=== PATIENT | male | born 1940 | race Caucasian/White ===

== ENCOUNTER 2021-01-04 17:14 | Observation (INO) | payer MEDICARE, SELFPAY ==
[2021-01-04] VITALS (7 sets, daily range): BP systolic 123–139; BP diastolic 56–69; PULSE 60–64; RESP 16–21; TEMP 36.6; O2SAT 95–97; BMI 24.3
--- NOTE | ~2021-01-04 | CT_ITS ---
EXAMINATION: CT CHEST WITHOUT CONTRAST CLINICAL INFORMATION: Fall. Left rib pain COMPARISON: None TECHNIQUE: Multidetector volumetric CT imaging of the chest was done. Axial MIP volume rendering provided. Sagittal and coronal reformatted images were obtained. This CT examination was performed using dose optimization techniques as appropriate, variously including the following: *Automated exposure control *Adjustment of mA and/or kV according to patient size (this includes techniques or standardized protocols for targeted exams where dose is matched to indication/reason for exam; i.e. 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 Left anterior pectoral pacer/AICD with leads in the right atrium and right ventricular apex. Severe degenerative arthrosis of the shoulders. LUNGS: There is respiratory motion are tract limiting the study. Mild bibasilar atelectasis. No dense focal consolidation or mass. Paraseptal emphysema. Biapical pleural parenchymal scarring. Tiny calcified granulomata are present. There are some endobronchial nodules consistent with mucus or small airways disease. No focal consolidation or groundglass opacity. MEDIASTINUM: Lack of IV contrast limits evaluation of the mediastinum. There is moderate cardiomegaly. Small pericardial effusion. Coronary artery calcifications are present. PLEURA: There is no pleural effusion. No pleural mass or thickening. AXILLA: No lymphadenopathy. UPPER ABDOMEN: No adrenal mass. Circumferential calcified atherosclerotic changes of the aorta. There is bilateral perinephric fluid and fat stranding, greater on the left. Its unclear if this is related to prior trauma. OSSEOUS STRUCTURES: Severe degenerative arthrosis of the bilateral shoulders. The clavicles are intact. Multilevel degenerative changes of the thoracolumbar spine. Left anterior seventh rib fracture image [id number]. Subtly displaced left anterolateral eighth rib fracture image 512 CT/CT chest wo con IMPRESSION: Left anterior lateral seventh and eighth rib fractures. Left greater than right bilateral perinephric fluid and fat stranding. Its unclear if the fluid adjacent the left kidney represents sequelae of prior trauma. No gross pneumoperitoneum seen. Recommend clinical correlation.
--- NOTE | ~2021-01-04 | CT_ITS ---
EXAMINATION: CT HEAD WITHOUT CONTRAST, CT CERVICAL SPINE WITHOUT CONTRAST CLINICAL INFORMATION: Pain. Fall. COMPARISON: Portions of a previous study 08/08/17 TECHNIQUE: Multidetector CT examination of the head is performed without contrast. Multidetector CT of the cervical spine without contrast. Multiplanar postprocessing This CT examination was performed using dose optimization techniques as appropriate, variously including the following: *Automated exposure control *Adjustment of mA and/or kV according to patient size (this includes techniques or standardized protocols for targeted exams where dose is matched to indication/reason for exam; i.e. extremities or head) *Use of iterative reconstruction technique DLP: 1833 mGy-cm FINDINGS: Head CT: There is no evidence of a recent intracranial hemorrhage or extra-axial collection. The midline structures are nondisplaced. The ventricles, cisterns, and sulci are within normal limits. There is no evidence of an intra-axial mass. There are no suspicious focal areas of abnormal brain attenuation. The mckinney-white interface is within normal limits. There is no evidence of acute territorial infarct. Moderately extensive nonspecific white matter low attenuation with a patchy distribution. This could be related to microangiopathy. The paranasal sinuses and mastoids are within normal limits. No definite fracture or fluid level. Mild thickening in the left maxillary sinus. Cervical CT: No fracture or subluxation. No suspicious focal lesion. There are proliferative changes throughout the cervical spine with anterior and posterior osteophytes. There is extensive facet disease with proliferative changes that cause some foraminal narrowing. There may be some canal narrowing. The canal contents are not well evaluated. There are cardiac leads. There is some pleural and parenchymal abnormality in the visualized lung apex. CT/CT cervical spine wo con IMPRESSION: 1. There is no evidence of a recent intracranial hemorrhage. 2. No acute infarct. 3. No acute fracture or subluxation of the cervical spine Extensive white matter disease possibly microangiopathy. Degenerative changes in the visualized spine.
--- NOTE | ~2021-01-04 | CT_ITS ---
EXAMINATION: CT ABDOMEN AND PELVIS WITHOUT CONTRAST CLINICAL INFORMATION: Fall. Trauma. COMPARISON: None TECHNIQUE: Multidetector volumetric imaging was performed from the superior aspect of the liver through the pubic symphysis. Sagittal and coronal reformatted images were obtained on the technologist's workstation. This CT examination was performed using dose optimization techniques as appropriate, variously including the following: *Automated exposure control *Adjustment of mA and/or kV according to patient size (this includes techniques or standardized protocols for targeted exams where dose is matched to indication/reason for exam; i.e. extremities or head) *Use of iterative reconstruction technique DLP: 1146 mGy-cm FINDINGS: LUNG BASES: The chest is examined earlier same day. There is artifact related to a cardiac lead. Extensive coronary calcification. Nonspecific lung base opacities. Small area of pleural thickening partially included in chili on the left. No pneumothorax demonstrated LIVER, GALLBLADDER, AND BILIARY TREE: There is no definite evidence of hepatic injury on the non-IV enhanced examination. This could be related to previous contrast administration or bile. PANCREAS: No evidence of a pancreatic injury. No localized peripancreatic fluid. SPLEEN: No definite splenic injury. ADRENAL GLANDS: No evidence of adrenal injury. KIDNEYS AND URETERS: There is some low attenuation of the central aspect the left kidney. I favor some parapelvic cysts. There is no ureteral dilation. There is left perinephric fat stranding and some thickening of the retroperitoneal fascial planes on the left. There is no enlargement of the psoas. There is no interval increase when compared to study from earlier this evening. BLADDER: Obscured by hardware artifact. GASTROINTESTINAL TRACT: There are numerous colonic diverticula. There is no evidence of colonic injury. There may be some suture material near the region of the proximal colon. Semisolid material within the distal small bowel suggests some relative stasis. No evidence of a small bowel injury. The stomach contains a moderate amount of ingested material. ABDOMINAL WALL: No significant hernia is appreciated. LYMPH NODES: No enlarged lymph nodes demonstrated. No free fluid demonstrated. VASCULAR: Calcification of the aorta. PELVIC VISCERA: Obscured by artifact OSSEOUS STRUCTURES: Artifact related to bilateral hip replacement. Multiple pelvic surgical clips. Recent diagnosis anterolateral lower left rib fractures. CT/CT abdomen pelvis wo con IMPRESSION: Stranding around the left kidney which could be chronic. This has not increased in the short interval. No other evidence of abdominal or pelvic injury.
--- NOTE | 2021-01-04 17:24 | ECG_ITS ---
Test Reason : FALL Blood Pressure : / mmHG Vent. Rate : 060 BPM Atrial Rate : 060 BPM P-R Int : 216 ms QRS Dur : 190 ms QT Int : 504 ms P-R-T Axes : 094 -37 220 degrees QTc Int : 504 ms Atrial-paced rhythm with prolonged AV conduction Left axis deviation Left bundle branch block Abnormal ECG When compared with ECG of 27-DEC-2002 08:50, Electronic atrial pacemaker has replaced Sinus rhythm Left bundle branch block is now Present Referred By: Ce Jordan Electronically Signed By:ALBERTINA RHODES MD
--- NOTE | 2021-01-04 17:26 | ED_ITS ---
HPI - Fall General Chief Complaint: Fall Stated Complaint: DIZZY,FALL Time Seen by Provider: 01/04/21 17:23 Source: patient and EMS Mode of arrival: EMS Limitations: no limitations History of Present Illness HPI Narrative: 80 yo male with afib and PPM on coumadin here after working outside sitting in a chair then when he went to get up he felt dizzy which is a typical occurrence for him (recent increase in amiodarone and metoprolol) instead of waiting he proceeded to get up and fell over no LOC, c/o L rib pain a nd abrasion to L little finger - the denies this and states that he actually has been only dizzy as of recent, he cannot fully remember the events, his HR has been up to 120s at home, new medication changes, is concerned he actually syncopized MD complaint: fall Onset (ago): minute(s) Fall from: standing Fall witnessed: no Place fall occurred: home Loss of consciousness: none Prolonged down time: no Symptoms prior to fall: lightheadedness Context: other (lost balance after standing up and feeling dizzy) Location of injury: chest Location of injury - extremities: left: hand Severity: mild Quality: dull Associated symptoms (after fall): denies Related Data Allergies Allergy/AdvReac Type Severity Reaction Status Date / Time acetaminophen [From PERCOCET] Allergy Unknown HIVES Verified 01/04/21 18:02 aspirin [From PERCODAN] Allergy Unknown HIVES Verified 01/04/21 18:02 cefotetan [From CEFOTAN] Allergy Unknown HIVES Verified 01/04/21 18:02 oxycodone [From PERCODAN] Allergy Unknown HIVES Verified 01/04/21 18:02 Review of Systems Review of Systems: Constitutional : No Fever, No Chills ENT/Mouth : No Ear Pain, No Hoarseness, No sore throat Eyes: No Eye Pain, No Swelling, No Redness, No Foreign Body Cardiovascular : pos left rib Chest Pain, No SOB Respiratory : No Cough, No Dyspnea Gastrointestinal : No Nausea, No Vomiting, No Diarrhea, No abdominal Pain Genitourinary : No Dysuria, No Hematuria Musculoskeletal : no joint pain, No Myalgias, No Joint Swelling Skin : No Skin lacerations, No rash, pos abrasions Neuro : No Weakness, No Numbness, No Loss of Consciousness, No Dizziness, No Headache Psych : No Anxiety/Panic, No Depression Heme/Lymph: no easy bruising, no Lymphadenopathy Endocrine : No Polyuria, No Polydipsia All other systems reviewed and are negative [facility] Past Medical History Attestation statement: The following information was validated with the patient. Medical History (Updated 01/04/21 @ 20:25 by Ce Jordan DO) Afib Coronary artery disease Pacemaker Surgical History (Updated 01/04/21 @ 17:33 by Ce Jordan DO) Stented coronary artery Social History Social History (Updated 01/04/21 @ 17:33 by Ce Jordan DO) Alcohol intake: never Smoking Status: Never smoker Use of substances other than those prescribed or required for medical reasons: No Advance Directives: No Advance Directives Information Provided: No Physical Exam Vital Signs: Vital Signs: Last Vital Signs Temp 97.8 F 01/04/21 18:33 Pulse 60 01/04/21 19:37 Resp 16 01/04/21 19:37 BP 132/69 01/04/21 19:37 Pulse Ox 96 01/04/21 19:37 Body Mass Index 24.3 Appearance: Alert. Oriented X3. No acute distress. Eyes: Pupils equal, round and reactive to light. ENT: Pharynx normal. Neck: Normal inspection. Neck supple. CVS: Normal heart rate and rhythm. Pulses normal. Chest: ttp left lateral ribs no obvious trauma Respiratory: No respiratory distress. Breath sounds normal. Abdomen: Soft and nontender. Skin: Skin warm and dry. Normal skin color. superficial abrasions to left small finger Extremities: No lower extremity edema. No calf ttp Neuro: Oriented X 3. No motor deficit. No sensory deficit. Course Course Course Narrative: will admit given recent bouts of possible syncope will admit for tele MDM - Fall MDM Narrative Medical decision making narrative: 80 yo male on coumadin hx of AFIB, CAD s/p PPM - at this time c/o dizziness upon standing which isn't a new occurrence for him given age and AC therapy will need labs, CT head/neck/chest for trauma, no CP/SOB no current dizziness, dispo per results and findings, like hx of dizziness upon standing or orthostatic hypotension causing symptoms Lab Data Result diagrams: 01/04/21 18:57 01/04/21 18:57 Labs: Lab Results 01/04/21 01/04/21 01/04/21 Range/Units 18:57 18:57 18:57 WBC 6.2 (4.8-10.8) X10*3/uL RBC 4.23 L (4.60-5.80) X10*6/uL Hgb 13.0 L (14.0-18.0) g/dl Hct 38.9 L (42-52) % MCV 92.0 (80-98) fL MCH 30.7 (27.0-33.0) pg MCHC 33.4 (31.0-36.0) g/dl RDW 13.5 (11.0-16.0) % Plt Count 119 L (160-400) X10*3/uL MPV 11.3 (9.4-12.4) fL Immature Gran % (Auto) 0.3 (0.0-0.4) % Neut % (Auto) 77.3 H (45-73) % Lymph % (Auto) 12.9 L (20-40) % [place] % (Auto) 8.2 (2-11) % Eos % (Auto) 0.8 (0-4) % Baso % (Auto) 0.5 (0-2) % Lymph # (Auto) 0.8 L (1.2-4.9) X10*3/uL [place] # (Auto) 0.5 (0.1-1.2) X10*3/uL Eos # (Auto) 0.1 (0.0-0.4) X10*3/uL Baso # (Auto) 0.0 (0.0-0.2) X10*3/uL Abs Immat Gran (auto) 0.02 (0.00-0.03) X10*3/uL Absolute Neuts (auto) 4.8 (2.0-8.3) X10*3/uL Absolute Nucleated RBC 0.000 (0.0-0.012) X10*3/uL Nucleated RBC % (auto) 0.0 (0.0-0.2) /100WBC PT 13.2 H (10.8-13.0) SEC INR 1.1 (0.9-1.1) APTT 31.2 (24.1-38.0) SEC Sodium 141 (135-145) mmol/L Potassium 4.6 (3.3-5.1) mmol/L Chloride 109 H (96-108) mmol/L Carbon Dioxide 24 (22-29) mmol/L Anion Gap 13 (12-20) BUN 23 H (9-16) mg/dL Creatinine 1.49 H (0.5-1.4) mg/dL Estim Creat Clear Calc 39.4 Estimated GFR 45 Random Glucose 96 (60-115) mg/dL Calcium 9.0 (8.4-10.2) mg/dL Magnesium (1.6-2.6) mg/dL Total Bilirubin (0.0-1.0) mg/dL Direct Bilirubin (0.0-0.5) mg/dL AST (5-37) U/L ALT (0-40) U/L Alkaline Phosphatase (39-117) U/L Troponin I High Sens (<3.5-35.0) ng/L Total Protein (6.5-8.0) g/dL Albumin (3.5-5.0) g/dL Lipase (8-78) U/L 01/04/21 01/04/21 Range/Units 18:57 18:57 WBC (4.8-10.8) X10*3/uL RBC (4.60-5.80) X10*6/uL Hgb (14.0-18.0) g/dl Hct (42-52) % MCV (80-98) fL MCH (27.0-33.0) pg MCHC (31.0-36.0) g/dl RDW (11.0-16.0) % Plt Count (160-400) X10*3/uL MPV (9.4-12.4) fL Immature Gran % (Auto) (0.0-0.4) % Neut % (Auto) (45-73) % Lymph % (Auto) (20-40) % [place] % (Auto) (2-11) % Eos % (Auto) (0-4) % Baso % (Auto) (0-2) % Lymph # (Auto) (1.2-4.9) X10*3/uL [place] # (Auto) (0.1-1.2) X10*3/uL Eos # (Auto) (0.0-0.4) X10*3/uL Baso # (Auto) (0.0-0.2) X10*3/uL Abs Immat Gran (auto) (0.00-0.03) X10*3/uL Absolute Neuts (auto) (2.0-8.3) X10*3/uL Absolute Nucleated RBC (0.0-0.012) X10*3/uL Nucleated RBC % (auto) (0.0-0.2) /100WBC PT (10.8-13.0) SEC INR (0.9-1.1) APTT (24.1-38.0) SEC Sodium (135-145) mmol/L Potassium (3.3-5.1) mmol/L Chloride (96-108) mmol/L Carbon Dioxide (22-29) mmol/L Anion Gap (12-20) BUN (9-16) mg/dL Creatinine (0.5-1.4) mg/dL Estim Creat Clear Calc Estimated GFR Random Glucose (60-115) mg/dL Calcium (8.4-10.2) mg/dL Magnesium 2.0 (1.6-2.6) mg/dL Total Bilirubin 1.0 (0.0-1.0) mg/dL Direct Bilirubin 0.4 (0.0-0.5) mg/dL AST 25 (5-37) U/L ALT 20 (0-40) U/L Alkaline Phosphatase 65 (39-117) U/L Troponin I High Sens 8.0 (<3.5-35.0) ng/L Total Protein 6.0 L (6.5-8.0) g/dL Albumin 3.9 (3.5-5.0) g/dL Lipase 68 (8-78) U/L ECG Data Attestation: I personally reviewed and interpreted this ECG as follows: ECG interpretation date: 01/04/21 ECG interpretation time: 18:49 Interpretation: Rate: 60 Rhythm: a paced continuous [place]: left wide QRS ST T wave : nonspecific , no PARVIN qTC: prolonged prior studies: no acute ischemia The study has been interpreted contemporaneously by me. . Discharge Plan Discharge Clinical Impression: Fracture of rib, Abrasion, Near syncope Patient Disposition: Admitted As Inpatient
[2021-01-04 19:03] LABS: Basophils Percent Auto 0.5 % (0-2); Eosinophils Absolute Auto 0.1 X10*3/uL (0.0-0.4); Eosinophils Percent Auto 0.8 % (0-4); Hematocrit 38.9 % (42-52); Imm Gran Abs Auto 0.02 X10*3/uL (0.00-0.03); Imm Gran Pct Auto 0.3 % (0.0-0.4); Mean Corpuscular HGB Conc 33.4 g/dl (31.0-36.0); PLT CLUMP 1; SCAN SMEAR FLAG 1
[2021-01-04 19:05] LABS: Lymphocytes Absolute Auto 0.8 X10*3/uL (1.2-4.9); Lymphocytes Percent Auto 12.9 % (20-40); Mean Corpuscular Hemoglobin 30.7 pg (27.0-33.0); Mean Platelet Volume 11.3 fL (9.4-12.4); Monocytes Absolute Auto 0.5 X10*3/uL (0.1-1.2); Monocytes Percent Auto 8.2 % (2-11); Neutrophils Absolute Auto 4.8 X10*3/uL (2.0-8.3); Neutrophils Percent Auto 77.3 % (45-73); Platelet Count 119 X10*3/uL (160-400); Red Blood Count 4.23 X10*6/uL (4.60-5.80); Red Cell Distribution Width 13.5 % (11.0-16.0); White Blood Count 6.2 X10*3/uL (4.8-10.8)
[2021-01-04 19:10] LABS: INTERNATIONAL NORM RATIO 1.1 (0.9-1.1); Prothrombin Time 13.2 SEC (10.8-13.0)
[2021-01-04 19:13] LABS: Partial Thromboplastin Time 31.2 SEC (24.1-38.0)
[2021-01-04 19:20] LABS: MANUAL DIFF FLAG NO
[2021-01-04 19:23] LABS: Anion Gap 13 (12-20); Blood Urea Nitrogen 23 mg/dL (9-16); Carbon Dioxide 24 mmol/L (22-29); Chloride 109 mmol/L (96-108); Creatinine Clr Calc Pharmacy 39.4; Estimated Glomerular Filt Rate 45; Glucose Random 96 mg/dL (60-115); Potassium 4.6 mmol/L (3.3-5.1); Sodium 141 mmol/L (135-145)
[2021-01-04 19:26] LABS: Alanine Aminotransferase 20 U/L (0-40); Albumin Level 3.9 g/dL (3.5-5.0); Alkaline Phosphatase 65 U/L (39-117); Aspartate Amino Transferase 25 U/L (5-37); Bilirubin Direct 0.4 mg/dL (0.0-0.5); Lipase 68 U/L (8-78)
[2021-01-04 21:43] LABS: COVID-19 Test Negative (Negative)
[2021-01-04 21:55] LABS: Troponin-I High Sensitivity 9.3 ng/L (<3.5-35.0)
--- NOTE | 2021-01-04 22:25 | P.HPHOSP_ITS ---
History of Present Illness Date of Service: 01/04/21 Chief Complaint: Fall, near syncope This is an 80-year-old male with past medical history of AFib, CAD status post stent replacement, pacemaker, ?SVT who presents to the hospital after experiencing a near syncopal episode. Patient currently is alert and oriented x3. Patient reports that he was working in the [employer] all day, he was working on his porch, he was leaning over, when he got up, he also sudden felt very dizzy and almost lost consciousness. He fell, fracturing some ribs on the left chest as well as abrasions of his fingers. He himself denies loss of consciousness although his reports that he was out of it . Patient and both report that he has been started on amnio recently as well as his metoprolol has been increased from 50-75. According to the patient's his ET has been trying to change his ICD leads and therefore patient was started on amnio. Patient himself reports that ever starting they amnio an increase in metoprolol he has been feeling significant weakness. He also reports that his blood pressure has been low at home with readings sometimes in the 80s/50s, 100s/50s. Although he reports that today his blood pressure was 130s over 50s. He currently denies any chest pain except at the site of fractured ribs, no shortness of breath, no headache or change in vision, no abdominal pain nausea or diarrhea, no urinary symptoms and no lower extremity edema. On arrival to the ED patient hemodynamically stable with no significant abnormal vitals Labs are significant for WBC count of 6.2, hemoglobin of 13.0, PT of 13.2, BUN of 23 creatinine of 1.49 with no baseline on record, troponin of 8 point know that increased to 9.3, labs otherwise unremarkable EKG shows atrial paced rhythm with prolonged AV, left axis deviation, left bundle-branch block. Abdominal pelvic CT shows stranding around the left kidney which could be chronic, Chest CT shows left anterior lateral 7th and 8th rib fracture, left greater than right bilateral perinephric fluid and fat stranding with unclear if the fluid adjacent to the left kidney represent sequelae of prior trauma, Head CT shows no evidence of recent intracranial hemorrhage, no acute infarct, no acute fracture or subluxation of the cervical spine Past medical history as below on comfort with patient Review of Systems Review of Systems: Yes all other systems are reviewed and are negative [facility] Medical History (Updated 01/05/21 @ 06:05 by Mian Lo MD) Afib CHF (congestive heart failure) Coronary artery disease Hypothyroidism Pacemaker SVT (supraventricular tachycardia) Surgical History Stented coronary artery Social History Alcohol intake: never Smoking Status: Never smoker Use of substances other than those prescribed or required for medical reasons: No Advance Directives: No Advance Directives Information Provided: No Meds Allergies Allergy/AdvReac Type Severity Reaction Status Date / Time acetaminophen [From PERCOCET] Allergy Unknown HIVES Verified 01/04/21 18:02 aspirin [From PERCODAN] Allergy Unknown HIVES Verified 01/04/21 18:02 cefotetan [From CEFOTAN] Allergy Unknown HIVES Verified 01/04/21 18:02 oxycodone [From PERCODAN] Allergy Unknown HIVES Verified 01/04/21 18:02 Active Medications: Current Medications Generic Name Dose Route Start Last Admin Trade Name Freq PRN Reason Stop Dose Admin Pharmacy Consult 1 each 01/04/21 20:52 Consult Rx Perform Med Rec MISCELLANE ONCE PRN Consult order Home Medications Medication Instructions Recorded Confirmed Last Taken Type amiodarone 200 mg PO BID 01/04/21 01/04/21 Unknown History atorvastatin 20 mg PO QPM 01/04/21 01/04/21 Unknown History clopidogrel 1 tab PO DAILY 01/04/21 01/04/21 Unknown History isosorbide mononitrate 1 tab PO DAILY 01/04/21 01/04/21 Unknown History levothyroxine 37.5 mcg PO DAILY 01/04/21 01/04/21 Unknown History metoprolol tartrate 75 mg PO BID 01/04/21 01/04/21 Unknown History pantoprazole [Protonix] 40 mg PO DAILY 01/04/21 01/04/21 Unknown History sacubitril-valsartan [Entresto] 1 tab PO BID 01/04/21 01/04/21 Unknown History Physical Exam Vital Signs and Narrative: Vital Signs: Last Vital Signs Temp 97.8 F 01/04/21 18:33 Pulse 61 01/04/21 21:16 Resp 21 H 01/04/21 21:16 BP 128/68 01/04/21 21:16 Pulse Ox 96 01/04/21 21:16 Body Mass Index 24.3 Const: General: cooperative and no acute distress Orientation/consciousness: patient oriented x3 HENMT: Other: left ear abraision Eyes: General: appearance normal, both eyes and all related structures Resp: Effort & Inspection: normal respiratory effort and able to speak in complete sentences Cardio: Rate: regular rate Rhythm: regular rhythm GI: Palpation (GI): Soft to palpation Auscultation: normal bowel sounds Skin: General skin exam: no rashes or lesions noted Neuro: General: patient oriented x3 Cognition (Neuro): normal cognition Extrem: General: Yes normal to inspection and Yes no pedal edema Results Labs CBC and Chem 7: 01/04/21 18:57 01/04/21 18:57 Labs: Laboratory Results - last 24 hr 01/04/21 01/04/21 01/04/21 18:57 18:57 18:57 MCV 92.0 MCH 30.7 MCHC 33.4 RDW 13.5 Plt Count 119 L MPV 11.3 Immature Gran % (Auto) 0.3 Neut % (Auto) 77.3 H Lymph % (Auto) 12.9 L [place] % (Auto) 8.2 Eos % (Auto) 0.8 Baso % (Auto) 0.5 Lymph # (Auto) 0.8 L [place] # (Auto) 0.5 Eos # (Auto) 0.1 Baso # (Auto) 0.0 Abs Immat Gran (auto) 0.02 Absolute Neuts (auto) 4.8 Absolute Nucleated RBC 0.000 Nucleated RBC % (auto) 0.0 PT 13.2 H INR 1.1 APTT 31.2 Anion Gap 13 Estim Creat Clear Calc 39.4 Estimated GFR 45 Random Glucose 96 Calcium 9.0 Magnesium Total Bilirubin Direct Bilirubin AST ALT Alkaline Phosphatase Troponin I High Sens Total Protein Albumin Lipase COVID-19 (EVIN) COVID-19 Clin Com 01/04/21 01/04/21 01/04/21 18:57 18:57 21:23 MCV MCH MCHC RDW Plt Count MPV Immature Gran % (Auto) Neut % (Auto) Lymph % (Auto) [place] % (Auto) Eos % (Auto) Baso % (Auto) Lymph # (Auto) [place] # (Auto) Eos # (Auto) Baso # (Auto) Abs Immat Gran (auto) Absolute Neuts (auto) Absolute Nucleated RBC Nucleated RBC % (auto) PT INR APTT Anion Gap Estim Creat Clear Calc Estimated GFR Random Glucose Calcium Magnesium 2.0 Total Bilirubin 1.0 Direct Bilirubin 0.4 AST 25 ALT 20 Alkaline Phosphatase 65 Troponin I High Sens 8.0 9.3 Total Protein 6.0 L Albumin 3.9 Lipase 68 COVID-19 (EVIN) COVID-19 Clin Com 01/04/21 21:23 MCV MCH MCHC RDW Plt Count MPV Immature Gran % (Auto) Neut % (Auto) Lymph % (Auto) [place] % (Auto) Eos % (Auto) Baso % (Auto) Lymph # (Auto) [place] # (Auto) Eos # (Auto) Baso # (Auto) Abs Immat Gran (auto) Absolute Neuts (auto) Absolute Nucleated RBC Nucleated RBC % (auto) PT INR APTT Anion Gap Estim Creat Clear Calc Estimated GFR Random Glucose Calcium Magnesium Total Bilirubin Direct Bilirubin AST ALT Alkaline Phosphatase Troponin I High Sens Total Protein Albumin Lipase COVID-19 (EVIN) Negative COVID-19 Clin Com See Note Imaging Radiologist's Impressions: Impressions Cervical Spine CT 01/04/21 17:24 IMPRESSION: 1. There is no evidence of a recent intracranial hemorrhage. 2. No acute infarct. 3. No acute fracture or subluxation of the cervical spine Extensive white matter disease possibly microangiopathy. Degenerative changes in the visualized spine. Chest CT 01/04/21 17:24 IMPRESSION: Left anterior lateral seventh and eighth rib fractures. Left greater than right bilateral perinephric fluid and fat stranding. Its unclear if the fluid adjacent the left kidney represents sequelae of prior trauma. No gross pneumoperitoneum seen. Recommend clinical correlation. Head CT 01/04/21 17:24 IMPRESSION: 1. There is no evidence of a recent intracranial hemorrhage. 2. No acute infarct. 3. No acute fracture or subluxation of the cervical spine Extensive white matter disease possibly microangiopathy. Degenerative changes in the visualized spine. Assessment and Plan (1) Near syncope: Status: Acute (2) Fracture of rib: Qualifiers: Encounter type: initial encounter Fracture type: closed Laterality: left Rib fracture type: multiple ribs Qualified Code(s): S22.42XA - Multiple fractures of ribs, left side, initial encounter for closed fracture Status: Acute (3) Abrasion: Status: Acute (4) SLOAN (acute kidney injury): Status: Acute 6-year-old male with past medical history of coronary artery disease status post stents as well as CHF pacemaker, presents to the hospital with near syncopal episode. # near-syncope - patient has been reporting blood pressures in the 80s over 50s ever since being started on amiodarone and beta-aundrea has been increased from 50-75 b.i.d. - blood pressure and heart rate have all been stable - orthostatic vitals negative - EKG showing new left bundle-branch block although troponin is flat x2 - attempted to obtain records from [facility] where his BP is located with no success - at this time will admit patient to telemetry - consult Cardiology for further recommendation - but will most likely need follow-up with his EP and outpatient insurance claims processor for further adjustment of his medications # fall with rib fracture as well as abrasion - secondary to the near syncopal episode - sustained rib fracture of the 7 and 8 anterior left ribs - as well as finger abrasions - pain control # SLOAN - unclear what his baseline is but appears to be dehydrated - spent all they outside with a temperature being around high 80s - will start him on IV fluids - follow BMP # ? SVT versus AFib - patient and are unclear convert CT patient has but his reports that he has SVT - patient not on anticoagulation - continue amiodarone as well as metoprolol # CAD status post stent - continue metoprolol, Plavix, and atorvastatin # hypothyroidism - continue levothyroxine # CHF - not in exacerbation - continue Entresto as well as Imdur DVT prophylaxis: Heparin subQ
--- NOTE | 2021-01-04 22:44 | PC.NURSE ---
reports ortho's were completed earlier, pt weak and unsteady while standing. pt given sandwich and soda, left for the evening. pt was able to use urinal to void.
[2021-01-05] VITALS (7 sets, daily range): BP systolic 113–153; BP diastolic 56–78; PULSE 60–64; RESP 18–20; TEMP 36.1–36.6; O2SAT 96–97
[2021-01-05] MEDS: Heparin Sodium,Porcine 5,000 UNIT/ML VIAL 5000 UNIT SUBCUT (02:53)
[2021-01-05] MEDS: 0.9 % Sodium Chloride Flush 3 ML SYRINGE IVFLUSH (02:53)
[2021-01-05] MEDS: Omeprazole 20 MG CAPSULE.DR PO (05:35)
[2021-01-05] MEDS: Levothyroxine Sodium 75 MCG TABLET 37.5 MCG PO (05:35)
[2021-01-05 06:09] LABS: MANUAL DIFF FLAG NO
[2021-01-05 06:36] LABS: Anion Gap 14 (12-20); Blood Urea Nitrogen 21 mg/dL (9-16); Calcium 9.1 mg/dL (8.4-10.2); Carbon Dioxide 22 mmol/L (22-29); Chloride 108 mmol/L (96-108); Creatinine Clr Calc Pharmacy 47.4; Estimated Glomerular Filt Rate 56; Glucose Random 101 mg/dL (60-115); Potassium 4.2 mmol/L (3.3-5.1); Sodium 140 mmol/L (135-145)
[2021-01-05 06:38] LABS: Basophils Percent Auto 0.4 % (0-2); Eosinophils Absolute Auto 0.1 X10*3/uL (0.0-0.4); Eosinophils Percent Auto 1.1 % (0-4); Hematocrit 43.7 % (42-52); Hemoglobin 14.5 g/dl (14.0-18.0); Imm Gran Abs Auto 0.03 X10*3/uL (0.00-0.03); Imm Gran Pct Auto 0.4 % (0.0-0.4); Lymphocytes Absolute Auto 1.4 X10*3/uL (1.2-4.9); Mean Corpuscular HGB Conc 33.2 g/dl (31.0-36.0); Mean Corpuscular Hemoglobin 30.4 pg (27.0-33.0); Mean Corpuscular Volume 91.6 fL (80-98); Mean Platelet Volume 11.9 fL (9.4-12.4); Monocytes Absolute Auto 0.7 X10*3/uL (0.1-1.2); Monocytes Percent Auto 9.1 % (2-11); Neutrophils Absolute Auto 5.8 X10*3/uL (2.0-8.3); Platelet Count 136 X10*3/uL (160-400); Red Blood Count 4.77 X10*6/uL (4.60-5.80); Red Cell Distribution Width 13.4 % (11.0-16.0); White Blood Count 8.1 X10*3/uL (4.8-10.8)
[2021-01-05] MEDS: Lactated Ringers 1,000 ML 100 ML IVCONT (06:42)
[2021-01-05] MEDS: Clopidogrel Bisulfate 75 MG TABLET PO (09:22)
[2021-01-05] MEDS: Sacubitril/Valsartan 49/51 1 TAB TABLET PO (09:23)
[2021-01-05] MEDS: Amiodarone HCL 200 MG TABLET PO (09:24)
[2021-01-05] MEDS: Isosorbide Mononitrate 60 MG TAB.ER.24H PO (09:24)
--- NOTE | 2021-01-05 10:42 | HO.PM.IMPN ---
Subjective Subjective Date of Service: 01/05/21 Interval History: pt seen and examined at bedside. pt reports having dizziness when getting out of bed this morning. no overnight events. no abnormal rhythm recorded. denies any chest pain, no palpitations, no shortness of breath. No abdominal pain nausea or vomiting, no diarrhea. case was discussed with pt's Physical Exam Vital Signs: Vital Signs: Last Vital Signs Temp 97.8 F 01/05/21 07:48 Pulse 60 01/05/21 09:24 Resp 18 01/05/21 07:48 BP 113/56 L 01/05/21 09:24 Pulse Ox 97 01/05/21 07:48 Body Mass Index 24.3 Const: General: cooperative and no acute distress Orientation/consciousness: patient oriented x3 Eyes: General: appearance normal, both eyes and all related structures Resp: Effort & Inspection: normal respiratory effort and able to speak in complete sentences Cardio: Rate: regular rate Rhythm: regular rhythm GI: Palpation (GI): Soft to palpation Auscultation: normal bowel sounds Skin: General skin exam: no rashes or lesions noted Neuro: General: patient oriented x3 Cognition (Neuro): normal cognition Extrem: General: Yes normal to inspection and Yes no pedal edema Objective Data Current Medications Generic Name Dose Route Start Last Admin Trade Name Freq PRN Reason Stop Dose Admin Amiodarone HCl 200 mg 01/05/21 09:00 01/05/21 09:24 Amiodarone Hcl 200 Mg Tablet PO 200 mg BID ESTELA Administration Atorvastatin Calcium 20 mg 01/05/21 21:00 Atorvastatin Calcium 20 Mg Tablet PO BEDTIME ESTELA Clopidogrel Bisulfate 75 mg 01/05/21 09:00 01/05/21 09:22 Clopidogrel Bisulfate 75 Mg Tablet PO 75 mg DAILY ESTELA Administration Docusate Sodium 100 mg 01/05/21 01:27 Docusate Sodium 100 Mg Capsule PO DAILY PRN Constipation Heparin Sodium (Porcine) 5,000 unit 01/05/21 02:00 01/05/21 02:53 Heparin Sodium,Porcine 5,000 Unit/Ml Vial SUBCUT 5,000 unit Q12H ESTELA Administration Lactated Ringer's 1,000 mls @ 100 mls/hr 01/05/21 06:00 01/05/21 06:42 Lr IVCONT 100 mls/hr .Q10H ESTELA Administration Isosorbide Mononitrate 60 mg 01/05/21 09:00 01/05/21 09:24 Isosorbide Mononitrate 60 Mg Tab.Er.24h PO 60 mg DAILY [facility] Administration Protocol Levothyroxine Sodium 37.5 mcg 01/05/21 06:30 01/05/21 05:35 Levothyroxine Sodium 75 Mcg Tablet PO 37.5 mcg DAILY@0630 [facility] Administration Metoprolol Tartrate 75 mg 01/05/21 09:00 Metoprolol Tartrate 25 Mg Tablet PO BID [facility] Protocol Omeprazole 20 mg 01/05/21 06:30 01/05/21 05:35 Omeprazole 20 Mg Capsule.Dr PO 20 mg DAILY@0630 [facility] Administration Ondansetron HCl 4 mg 01/05/21 01:27 Ondansetron Hcl 4 Mg/2 Ml Vial IVPUSH Q8H PRN Nausea and Vomiting Pharmacy Consult 1 each 01/04/21 20:52 Consult Rx Perform Med Rec MISCELLANE ONCE PRN Consult order Sacubitril/Valsartan 1 tab 01/05/21 09:00 01/05/21 09:23 Sacubitril/Valsartan 49/51 1 Tab Tablet PO 1 tab BID [facility] Administration Protocol Sodium Chloride 3 ml 01/05/21 01:27 01/05/21 07:08 0.9 % Sodium Chloride Flush 3 Ml Syringe IVFLUSH Not Given QSHIFT [facility] Labs CBC & Chem 7: 01/05/21 05:45 01/05/21 05:45
--- NOTE | 2021-01-05 11:20 | PM.DS ---
DS: Providers Provider Date of Service: 01/06/21 Date of admission: 01/04/21 22:25 Primary care physician: Unknown Physician Consults: 01/05/21 01:27 Consult to Cardiology Routine Consulting Provider: Mundo Alcocer Reason for consultation: possible syncope with cardiac hx and new med changes Has provider been notified: No 01/05/21 10:51 Consult to Urology Routine Consulting Provider: Rudi Prieto Reason for consultation: hematuria Has provider been notified: No DS: Diagnosis Discharge Diagnosis (1) Near syncope: Status: Acute (2) Fracture of rib: Status: Acute (3) Abrasion: Status: Acute (4) SLOAN (acute kidney injury): Status: Acute DS: Medications Discharge Medications Home Medications: Home Medications Medication Instructions Recorded Confirmed amiodarone 200 mg PO BID 01/04/21 01/04/21 atorvastatin 20 mg PO QPM 01/04/21 01/04/21 clopidogrel 1 tab PO DAILY 01/04/21 01/04/21 isosorbide mononitrate 1 tab PO DAILY 01/04/21 01/04/21 levothyroxine 37.5 mcg PO DAILY 01/04/21 01/04/21 metoprolol tartrate 75 mg PO BID 01/04/21 01/04/21 pantoprazole [Protonix] 40 mg PO DAILY 01/04/21 01/04/21 sacubitril-valsartan [Entresto] 1 tab PO BID 01/04/21 01/04/21 DS: Summary Hospital Course Hospital Course: presentation obtained from H&P done one 01/04: This is an 80-year-old male with past medical history of AFib, CAD status post stent replacement, pacemaker, ?SVT who presents to the hospital after experiencing a near syncopal episode. Patient reports that he was working in the [employer] all day, he was working on his porch, he was leaning over, when he got up, he suddenly felt very dizzy and almost lost consciousness. He fell, fracturing some ribs on the left chest as well as abrasions of his fingers. He himself denies loss of consciousness although his reports that he was out of it . Patient and both report that he has been started on amnio recently as well as his metoprolol was increased from 50-75. According to the patient's his ET has been trying to change his ICD leads and therefore patient was started on amnio. Patient himself reports that ever starting they amnio an increase in metoprolol he has been feeling significant weakness. He also reports that his blood pressure has been low at home with readings sometimes in the 80s/50s, 100s/50s. Although he reports that today his blood pressure was 130s over 50s. Hospital course: Pt was seen and evaluated by cardiology. Alex his symptoms were more likely associated with othostatic hypotension given extensive cardiac history even if orthostatic vitals were normal on presentation. Pt meds were adjusted including decrease of his Imdur from 60 daily to 30 mg daily. His metoprolol was also decreased from 75 BiD to 50 BID. pt has an appt with agricultural and forestry supervisor on 01/06 and discussed with pt and his at bedside, to report the incident as well as med changes with own op agricultural and forestry supervisor Pt also sustained rib fractures- sent home with incentive spirometry Time Spent with Patient Time attestation: Total time spent providing and/or coordinating discharge services: Discharge coordination time: Greater than 30 minutes Quality: Stroke Does the patient have a stroke diagnosis?: No Physical Exam Vital Signs: Vital Signs: Last Vital Signs Temp 97 F 01/05/21 10:49 Pulse 62 01/05/21 10:49 Resp 20 01/05/21 10:49 BP 142/64 H 01/05/21 10:49 Pulse Ox 97 01/05/21 10:49 Body Mass Index 24.3 Const: General: cooperative and no acute distress Orientation/consciousness: patient oriented x3 Eyes: General: appearance normal, both eyes and all related structures Resp: Effort & Inspection: normal respiratory effort and able to speak in complete sentences Cardio: Rate: regular rate Rhythm: regular rhythm GI: Palpation (GI): Soft to palpation Auscultation: normal bowel sounds Skin: General skin exam: no rashes or lesions noted Neuro: General: patient oriented x3 Cognition (Neuro): normal cognition Extrem: General: Yes normal to inspection and Yes no pedal edema DS: Data Data Completed and Pending Labs on day of discharge: Laboratory Results - last 24 hr 01/04/21 01/04/21 01/04/21 18:57 18:57 18:57 WBC 6.2 RBC 4.23 L Hgb 13.0 L Hct 38.9 L MCV 92.0 MCH 30.7 MCHC 33.4 RDW 13.5 Plt Count 119 L MPV 11.3 Immature Gran % (Auto) 0.3 Neut % (Auto) 77.3 H Lymph % (Auto) 12.9 L [place] % (Auto) 8.2 Eos % (Auto) 0.8 Baso % (Auto) 0.5 Lymph # (Auto) 0.8 L [place] # (Auto) 0.5 Eos # (Auto) 0.1 Baso # (Auto) 0.0 Abs Immat Gran (auto) 0.02 Absolute Neuts (auto) 4.8 Absolute Nucleated RBC 0.000 Nucleated RBC % (auto) 0.0 PT 13.2 H INR 1.1 APTT 31.2 Sodium 141 Potassium 4.6 Chloride 109 H Carbon Dioxide 24 Anion Gap 13 BUN 23 H Creatinine 1.49 H Estim Creat Clear Calc 39.4 Estimated GFR 45 Random Glucose 96 Calcium 9.0 Magnesium Total Bilirubin Direct Bilirubin AST ALT Alkaline Phosphatase Troponin I High Sens Total Protein Albumin Lipase COVID-19 (EVIN) COVID-VOSS 01/04/21 01/04/21 01/04/21 18:57 18:57 21:23 WBC RBC Hgb Hct MCV MCH MCHC RDW Plt Count MPV Immature Gran % (Auto) Neut % (Auto) Lymph % (Auto) [place] % (Auto) Eos % (Auto) Baso % (Auto) Lymph # (Auto) [place] # (Auto) Eos # (Auto) Baso # (Auto) Abs Immat Gran (auto) Absolute Neuts (auto) Absolute Nucleated RBC Nucleated RBC % (auto) PT INR APTT Sodium Potassium Chloride Carbon Dioxide Anion Gap BUN Creatinine Estim Creat Clear Calc Estimated GFR Random Glucose Calcium Magnesium 2.0 Total Bilirubin 1.0 Direct Bilirubin 0.4 AST 25 ALT 20 Alkaline Phosphatase 65 Troponin I High Sens 8.0 9.3 Total Protein 6.0 L Albumin 3.9 Lipase 68 COVID-19 (EVIN) [employer]Fox 01/04/21 01/05/21 01/05/21 21:23 05:45 05:45 WBC 8.1 RBC 4.77 Hgb 14.5 Hct 43.7 MCV 91.6 MCH 30.4 MCHC 33.2 RDW 13.4 Plt Count 136 L MPV 11.9 Immature Gran % (Auto) 0.4 Neut % (Auto) 72.0 Lymph % (Auto) 17.0 L [place] % (Auto) 9.1 Eos % (Auto) 1.1 Baso % (Auto) 0.4 Lymph # (Auto) 1.4 [place] # (Auto) 0.7 Eos # (Auto) 0.1 Baso # (Auto) 0.0 Abs Immat Gran (auto) 0.03 Absolute Neuts (auto) 5.8 Absolute Nucleated RBC 0.000 Nucleated RBC % (auto) 0.0 PT INR APTT Sodium 140 Potassium 4.2 Chloride 108 Carbon Dioxide 22 Anion Gap 14 BUN 21 H Creatinine 1.24 Estim Creat Clear Calc 47.4 Estimated GFR 56 Random Glucose 101 Calcium 9.1 Magnesium Total Bilirubin Direct Bilirubin AST ALT Alkaline Phosphatase Troponin I High Sens Total Protein Albumin Lipase COVID-19 (EVIN) Negative COVID-19 Clin Com See Note Discharge Plan Discharge Patient Disposition: Home, Self-Care Referrals: Physician,Unknown [Primary Care Provider] - 1 Week Discharge Medications: New isosorbide mononitrate 30 mg Tablet Extended Release 24 Hr 30 mg PO DAILY 30 Days Qty: 30 RF: 0 metoprolol tartrate 25 mg Tablet 50 mg PO BID 30 Days Qty: 120 RF: 0 Continued atorvastatin 20 mg Tablet 20 mg PO QPM RF: 0 clopidogrel 75 mg tablet 1 tab PO DAILY RF: 0 levothyroxine 75 mcg Tablet 37.5 mcg PO DAILY RF: 0 pantoprazole [Protonix] 40 mg Tablet,Delayed Release (Dr/Ec) 40 mg PO DAILY RF: 0 Entresto 49-51 mg Tablet 1 tab PO BID RF: 0 Changed amiodarone 200 mg Tablet 200 mg PO DAILY Qty: 0 RF: 0 Discontinued isosorbide mononitrate 60 mg tablet extended release 24 hr 1 tab PO DAILY RF: 0 metoprolol tartrate 75 mg Tablet 75 mg PO BID RF: 0 Discharge Orders: Discharge Order (Routine); Ordered 01/05/21 Ordered By: iMan Lo Diet: other Activity on Discharge: rest Stand Alone Forms: Patient Portal Discharge page Care Plan Goals: see below Health Concerns: 1. Pre-seyncope: secondary to dehydration, and orthostatic hypotension. will reduce metoprolol, and imude, has appt with cardiology in AM 2. Rib fracture: secondary to fall, encouraged incentive spirometry 3. Acute kidney failure: most likely 2/2 dehydration, resolved with iv fluids Plan of Treatment: You were admitted for possible syncope your medications have been adjusted including a decrease to your imdur from 60 mg daily to 30 mg , metoprolol has been reduced from 75 BID to 50 BID. Please continue amiodarone until evaluated by your agricultural and forestry supervisor tomorrow In regards to rib fracture, use tylenol q8 hrs for pain control and incentive spirometry every 4 hrs Please rest today, stay well hydrated, and avoid prolonged heat and sun exposure Assessment: see discharge summary Discharge Date/Time: 01/05/21 14:02
--- NOTE | 2021-01-05 12:36 | PM.CNCAR ---
History of Present Illness History of Present Illness Date of Service: 01/05/21 Requesting physician: Mian Lo Chief complaint: questionable syncope, fall Narrative: I was requested to see Thomas in cardiology consultation today for symptoms of syncope. Patient is not a very good historian, history was obtained from his who is an excellent historian. Patient with very complicated past medical history. Patient with prior history of myocardial infarction flor[place] about 4-5 years ago undergoing stenting to the LAD as per the , but subsequently left with severe ischemic cardiomyopathy. He underwent dual-chamber Biotronik ICD placement previously. Maintained on neurohormonal modulation. He has never had overt heart failure as per the . Her last March had another myocardial infarction and was admitted to [facility], at that time again had complex PCI performed to the LAD beyond the prior stent placement and as per the had PTCA of diagonal branch. However post myocardial infarction is LV systolic function was further depressed in the range of 20% as per the . He had underlying left bundle-branch block and subsequently because of his NYHA class 2 symptoms was planned in October to undergo an upgrade to a biventricular system, however this was unsuccessful as there was difficult venous anatomy an epicardial lead could not be placed. Patient subsequently was noted to have multiple episodes of SVT. Initially being trying to be managed by metoprolol increased therapy to 75 mg b.i.d. however continue to have episodes of SVT and was then subsequently started on amiodarone 200 mg daily and then that was increased to 200 mg b.i.d. for 1 week. Since then he has not had any further arrhythmias as per the . is noted the patient has had some episodes of hypotension at home. She was concerned about this. However yesterday patient in [place] weather was working in the [employer]. says that she was constantly managing him to be hydrated and offering him water to drink. He will get tired and he would sit down. Subsequently prior to going to dinner, he was bending over to fix a hose does in his garden and stooping over. He was getting lightheaded. He then decided to stand up and the next thing he thinks that he fell or and had lost consciousness. Patient does not think he lost consciousness but confirms that he may have. Patient and subsequently regained consciousness quickly. There were no reported chest pain, shortness of breath, palpitations. In the ED and subsequently this morning he has not noted to be orthostatic. His blood pressures remained stable. On admission he was noted to have some SLOAN with creatinine up to 1.49 and he was given IV hydration his creatinine has improved. He is feeling well now. Cardiology consult was sought for further management plan. Since last myocardial infarction in March he has been in dual antiplatelet therapy. There is no overt bleeding issues. His CBCs within acceptable limits. He was also started on isosorbide after the last PCI because of chest discomfort post PCI. However since been on isosorbide he has had no recurrent anginal symptoms with activity. He does get short of breath, NYHA class 2. No orthopnea, PND, palpitations, lightheadedness. Review of Systems Constitutional: Constitutional: Denies no additional constitutional complaints Cardiovascular: Cardiovascular: Denies chest pain, Denies leg edema, Reports lightheadedness, Reports Loss of Consciousness, Denies palpitations, Reports dyspnea on exertion and Denies orthopnea Respiratory: Respiratory: Reports no additional respiratory complaints and Reports dyspnea on exertion Gastrointestinal: Gastrointestinal: Reports no additional gastrointestinal complaints Musculoskeletal: Musculoskeletal: Reports no additional musculoskeletal complaints Neurologic: Reports system reviewed and no additional complaints, except as documented Psychiatric: Psychiatric: Reports no additional psychiatric complaints Endocrine: Endocrine: Reports no additional endocrine complaints and Denies palpitations Hematologic/Lymphatic: Hematologic/Lymphatic: Reports no additional hematologic/lymphatic complaints [facility] Past Medical History Medical History (Updated 01/05/21 @ 12:46 by Mundo Alcocer MD) Afib CHF (congestive heart failure) Coronary artery disease Hypothyroidism ICD (implantable cardioverter-defibrillator) in place Ischemic cardiomyopathy Left bundle branch block Pacemaker SVT (supraventricular tachycardia) Surgical History Surgical History Stented coronary artery Social History Social History Alcohol intake: never Smoking Status: Never smoker Use of substances other than those prescribed or required for medical reasons: No Advance Directives: No Advance Directives Information Provided: No Meds Allergies Allergy/AdvReac Type Severity Reaction Status Date / Time acetaminophen [From PERCOCET] Allergy Unknown HIVES Verified 01/04/21 18:02 aspirin [From PERCODAN] Allergy Unknown HIVES Verified 01/04/21 18:02 cefotetan [From CEFOTAN] Allergy Unknown HIVES Verified 01/04/21 18:02 oxycodone [From PERCODAN] Allergy Unknown HIVES Verified 01/04/21 18:02 Active Medications: Current Medications Generic Name Dose Route Start Last Admin Trade Name Freq PRN Reason Stop Dose Admin Amiodarone HCl 200 mg 01/05/21 09:00 01/05/21 09:24 Amiodarone Hcl 200 Mg Tablet PO 200 mg BID ESTELA Administration Atorvastatin Calcium 20 mg 01/05/21 21:00 Atorvastatin Calcium 20 Mg Tablet PO BEDTIME ESTELA Clopidogrel Bisulfate 75 mg 01/05/21 09:00 01/05/21 09:22 Clopidogrel Bisulfate 75 Mg Tablet PO 75 mg DAILY ESTELA Administration Docusate Sodium 100 mg 01/05/21 01:27 Docusate Sodium 100 Mg Capsule PO DAILY PRN Constipation Heparin Sodium (Porcine) 5,000 unit 01/05/21 02:00 01/05/21 02:53 Heparin Sodium,Porcine 5,000 Unit/Ml Vial SUBCUT 5,000 unit Q12H ESTELA Administration Lactated Ringer's 1,000 mls @ 100 mls/hr 01/05/21 06:00 01/05/21 06:42 Lr IVCONT 100 mls/hr .Q10H ESTELA Administration Isosorbide Mononitrate 30 mg 01/06/21 09:00 Isosorbide Mononitrate 30 Mg Tab.Er.24h PO DAILY [facility] Protocol Levothyroxine Sodium 37.5 mcg 01/05/21 06:30 01/05/21 05:35 Levothyroxine Sodium 75 Mcg Tablet PO 37.5 mcg DAILY@0630 [facility] Administration Metoprolol Tartrate 50 mg 01/05/21 21:00 Metoprolol Tartrate 25 Mg Tablet PO BID [facility] Protocol Omeprazole 20 mg 01/05/21 06:30 01/05/21 05:35 Omeprazole 20 Mg Capsule.Dr PO 20 mg DAILY@0630 [facility] Administration Ondansetron HCl 4 mg 01/05/21 01:27 Ondansetron Hcl 4 Mg/2 Ml Vial IVPUSH Q8H PRN Nausea and Vomiting Pharmacy Consult 1 each 01/04/21 20:52 Consult Rx Perform Med Rec MISCELLANE ONCE PRN Consult order Sacubitril/Valsartan 1 tab 01/05/21 09:00 01/05/21 09:23 Sacubitril/Valsartan 49/51 1 Tab Tablet PO 1 tab BID [facility] Administration Protocol Sodium Chloride 3 ml 01/05/21 01:27 01/05/21 07:08 0.9 % Sodium Chloride Flush 3 Ml Syringe IVFLUSH Not Given QSHIFT [facility] Home Medications Medication Instructions Recorded Confirmed Last Taken Type Entresto 1 tab PO BID 01/04/21 01/04/21 Unknown History atorvastatin 20 mg PO QPM 01/04/21 01/04/21 Unknown History clopidogrel 1 tab PO DAILY 01/04/21 01/04/21 Unknown History levothyroxine 37.5 mcg PO DAILY 01/04/21 01/04/21 Unknown History pantoprazole [Protonix] 40 mg PO DAILY 01/04/21 01/04/21 Unknown History Physical Exam Vital Signs: Vital Signs: Last Vital Signs Temp 97 F 01/05/21 10:49 Pulse 62 01/05/21 10:49 Resp 20 01/05/21 10:49 BP 142/64 H 01/05/21 10:49 Pulse Ox 97 01/05/21 10:49 Body Mass Index 24.3 Const: General: cooperative and comfortable Nutritional Appearance: average body habitus and other (Frail-appearing) Orientation/consciousness: patient oriented x3 HENMT: Head: Yes normocephalic and Yes atraumatic Neck: Neck: Yes no meningeal signs, Yes trachea midline, Yes supple and Yes no JVD Resp: Effort & Inspection: normal respiratory effort Auscultation: clear to auscultation bilaterally Cardio: Palpation: abnormal PMI displaced PMI Rate: regular rate Rhythm: regular rhythm Heart sounds: S1 normal heart sound present and S2 normal heart sound present GI: Auscultation: normal bowel sounds Skin: General skin exam: no rashes or lesions noted and ecchymosis Neuro: General: patient oriented x3 and no meningeal signs Extrem: General: Yes no clubbing, cyanosis or edema Results Labs and Meds Result diagrams: 01/05/21 05:45 01/05/21 05:45 Lab results: Laboratory Results - last 24 hr 01/04/21 01/04/21 01/04/21 18:57 18:57 18:57 WBC 6.2 RBC 4.23 L Hgb 13.0 L Hct 38.9 L MCV 92.0 MCH 30.7 MCHC 33.4 RDW 13.5 Plt Count 119 L MPV 11.3 Immature Gran % (Auto) 0.3 Neut % (Auto) 77.3 H Lymph % (Auto) 12.9 L [place] % (Auto) 8.2 Eos % (Auto) 0.8 Baso % (Auto) 0.5 Lymph # (Auto) 0.8 L [place] # (Auto) 0.5 Eos # (Auto) 0.1 Baso # (Auto) 0.0 Abs Immat Gran (auto) 0.02 Absolute Neuts (auto) 4.8 Absolute Nucleated RBC 0.000 Nucleated RBC % (auto) 0.0 PT 13.2 H INR 1.1 APTT 31.2 Sodium 141 Potassium 4.6 Chloride 109 H Carbon Dioxide 24 Anion Gap 13 BUN 23 H Creatinine 1.49 H Estim Creat Clear Calc 39.4 Estimated GFR 45 Random Glucose 96 Calcium 9.0 Magnesium Total Bilirubin Direct Bilirubin AST ALT Alkaline Phosphatase Troponin I High Sens Total Protein Albumin Lipase COVID-19 (EVIN) [employer] 01/04/21 01/04/21 01/04/21 18:57 18:57 21:23 WBC RBC Hgb Hct MCV MCH MCHC RDW Plt Count MPV Immature Gran % (Auto) Neut % (Auto) Lymph % (Auto) [place] % (Auto) Eos % (Auto) Baso % (Auto) Lymph # (Auto) [place] # (Auto) Eos # (Auto) Baso # (Auto) Abs Immat Gran (auto) Absolute Neuts (auto) Absolute Nucleated RBC Nucleated RBC % (auto) PT INR APTT Sodium Potassium Chloride Carbon Dioxide Anion Gap BUN Creatinine Estim Creat Clear Calc Estimated GFR Random Glucose Calcium Magnesium 2.0 Total Bilirubin 1.0 Direct Bilirubin 0.4 AST 25 ALT 20 Alkaline Phosphatase 65 Troponin I High Sens 8.0 9.3 Total Protein 6.0 L Albumin 3.9 Lipase 68 COVID-19 (EVIN) [employer] 01/04/21 01/05/21 01/05/21 21:23 05:45 05:45 WBC 8.1 RBC 4.77 Hgb 14.5 Hct 43.7 MCV 91.6 MCH 30.4 MCHC 33.2 RDW 13.4 Plt Count 136 L MPV 11.9 Immature Gran % (Auto) 0.4 Neut % (Auto) 72.0 Lymph % (Auto) 17.0 L [place] % (Auto) 9.1 Eos % (Auto) 1.1 Baso % (Auto) 0.4 Lymph # (Auto) 1.4 [place] # (Auto) 0.7 Eos # (Auto) 0.1 Baso # (Auto) 0.0 Abs Immat Gran (auto) 0.03 Absolute Neuts (auto) 5.8 Absolute Nucleated RBC 0.000 Nucleated RBC % (auto) 0.0 PT INR APTT Sodium 140 Potassium 4.2 Chloride 108 Carbon Dioxide 22 Anion Gap 14 BUN 21 H Creatinine 1.24 Estim Creat Clear Calc 47.4 Estimated GFR 56 Random Glucose 101 Calcium 9.1 Magnesium Total Bilirubin Direct Bilirubin AST ALT Alkaline Phosphatase Troponin I High Sens Total Protein Albumin Lipase COVID-19 (EVIN) Negative COVID-19 Clin Com See Note ICD interrogation Biotronik ICD interrogated, shows no significant arrhythmias yesterday. Last episode of SVT was 12/17/2020. Atrial ventricular sensing is adequate. Atrial pacing about 60% of the time. Ventricular pacing 8% of the time. Battery life is adequate. Pacing and shock lead impedance appear to be adequate. EKG shows atrial paced rhythm with left bundle-branch block. Imaging Radiologist's impression: Impressions Cervical Spine CT 01/04/21 17:24 IMPRESSION: 1. There is no evidence of a recent intracranial hemorrhage. 2. No acute infarct. 3. No acute fracture or subluxation of the cervical spine Extensive white matter disease possibly microangiopathy. Degenerative changes in the visualized spine. Chest CT 01/04/21 17:24 IMPRESSION: Left anterior lateral seventh and eighth rib fractures. Left greater than right bilateral perinephric fluid and fat stranding. Its unclear if the fluid adjacent the left kidney represents sequelae of prior trauma. No gross pneumoperitoneum seen. Recommend clinical correlation. Head CT 01/04/21 17:24 IMPRESSION: 1. There is no evidence of a recent intracranial hemorrhage. 2. No acute infarct. 3. No acute fracture or subluxation of the cervical spine Extensive white matter disease possibly microangiopathy. Degenerative changes in the visualized spine. Abdomen/Pelvis CT 01/04/21 19:28 IMPRESSION: Stranding around the left kidney which could be chronic. This has not increased in the short interval. No other evidence of abdominal or pelvic injury. Assessment and Plan (1) Syncope: Status: Acute Syncope in elderly man, from history appears to be orthostatic in nature which is most likely potentiated by some dehydration as noted by elevated creatinine, potentiated by his recent increase in medicines including metoprolol and also continued use of isosorbide. He is currently not orthostatic. There is no evidence of arrhythmia by the device monitoring as well as the device function appears to be appropriate. At this point time as he is not having any clear anginal symptoms as outpatient, will reduce his isosorbide to 30 mg daily. Also will reduce his metoprolol to 50 mg twice a day given that his a has recorded lower blood pressure in the recent past after increasing his metoprolol therapy and is currently not having any significant arrhythmias. Advised to follow-up with his director recreation center tomorrow as planned. Advised to avoid strenuous exertion today especially heart weather. Advised to prevent sudden change in posture especially when he is working outside in hot weather as well. Advised to seek sitting or supine position when he gets orthostatically lightheaded. He understands and agrees. (2) Ischemic cardiomyopathy: Status: Acute Prior history of ischemic cardiomyopathy with persistent severe LV systolic dysfunction with left bundle-branch block. He has failed endovascular LV lead placement in the past. There is a plan for epicardial lead placement given his NYHA class 2 symptoms. The wants to discuss this with her director recreation center. He has not had any overt heart failure and clinically appears to be euvolemic today. There is no need for diuretic therapy. He is on Entresto as well as metoprolol therapy for neurohormonal modulation. Metoprolol therapy will be reduced as above. Signs and symptoms of heart failure were discussed. Can be followed as outpatient. Thank you for allowing us to partake in his care. 45 minutes was spent in obtaining data and reviewing his defibrillator and findings with him and his . Procedures Date of Service Date of Service: 01/05/21
--- NOTE | 2021-01-05 13:53 | MHC.CM.PN ---
nurse acute care nurse ntoe electronic medical record reviewed along with case discussed with staff nurse and meetings with patient and his .patient is aware that he will be discharged today home no services. observation message explained and given to him hcp to be mailed into the hospital discharge plan home with his no services (independent) pcp dr ramiro haas [facility] patient to call for follow up post hospital discharge transp-family
[2021-01-05 13:57] LABS: Appearance Urine CLOUDY; Color Urine YELLOW; Glucose Urine UA NEG (NEG); Leukocyte Esterase Urine 1+ (NEG); Nitrite Urine NEG (NEG); Specific Gravity - Urine 1.025 (1.005-1.025); Urine Blood NEG (NEG); Urine Ketones NEG (NEG); Urine Protein NEG (NEG-TRACE)
[2021-01-05 14:07] LABS: Bacteria Urine 3+ /LPF; RBC Urine 0 /HPF (0); Squamous Epithelial Cell Urine TRACE /LPF; WBC Urine 30-49 /HPF (0-4)
[2021-01-05 14:08] LABS: WBC Clumps Urine NOTED
[2021-01-05 14:09] LABS: Hyaline Casts Urine 0-2 /LPF
== END 2021-01-05 14:02 | disposition home or self-care (01) ==
LOC: HO.ED 20:36 → HO.EDOVER 22:34 → HO.S3 22:45
PROVIDERS: Admitting Provider Internal Medicine; Emergency Provider Emergency Medicine; Visit Provider Internal Medicine
DX: R55 Syncope and collapse (principal); N17.9 Acute kidney failure, unspecified; S22.42XA Multiple fractures of ribs, left side, initial encounter for closed fracture; W07.XXXA Fall from chair, initial encounter; Y93.89 Activity, other specified; Y92.007 Garden or yard of unspecified non-institutional (private) residence as the place of occurrence of the external cause; Y99.8 Other external cause status; E78.5 Hyperlipidemia, unspecified; E03.9 Hypothyroidism, unspecified; I25.5 Ischemic cardiomyopathy; I15.2 Hypertension secondary to endocrine disorders; I44.7 Left bundle-branch block, unspecified; I47.1 Supraventricular tachycardia; I21.3 ST elevation (STEMI) myocardial infarction of unspecified site; I25.10 Atherosclerotic heart disease of native coronary artery without angina pectoris; I48.91 Unspecified atrial fibrillation; R94.31 Abnormal electrocardiogram [ECG] [EKG]; Z20.822 Contact with and (suspected) exposure to COVID-19; Z88.6 Allergy status to analgesic agent; Z88.1 Allergy status to other antibiotic agents; Z95.0 Presence of cardiac pacemaker; Z95.5 Presence of coronary angioplasty implant and graft; Z79.01 Long term (current) use of anticoagulants; Z79.899 Other long term (current) drug therapy
CPT/HCPCS: 36415; 70450; 71250; 72125; 74176; 80048; 80076; 81001; 83690; 83735; 84484; 85025; 85610; 85730; 87635; 93005; 96361; 96372; 96374; 99218; 99285

== ENCOUNTER 2021-12-11 14:30 | Observation (INO) | payer MEDICARE, SELFPAY ==
[2021-12-11] VITALS (8 sets, daily range): BP systolic 129–169; BP diastolic 65–86; PULSE 65–79; RESP 12–24; TEMP 36.6–36.9; O2SAT 93–98; BMI 25.8
--- NOTE | ~2021-12-11 | CT_ITS ---
Indication: Fall, pain EXAMINATION: CT cervical spine, CT brain, CT facial bones. This CT examination was performed using dose optimization techniques as appropriate, variously including the following: *Automated exposure control *Adjustment of mA and/or kV according to patient size (this includes techniques or standardized protocols for targeted exams where dose is matched to indication/reason for exam; i.e. extremities or head) *Use of iterative reconstruction technique. Radiation dose is 9[address] brain; Comparison 08/08/2017. There is no midline shift. There is no mass effect. There is no hemorrhage. The basal cisterns appear patent. The posterior fossa risk grossly within normal limits. There is no extra-axial collection. There is once again atrophy and white matter ischemic change. No fracture is seen on the bone windows. Sinus disease in left maxillary sinus. CT cervical spine; Degenerative changes. There is no acute fracture or dislocation. CT facial bones. No acute fracture. CT/CT cervical spine wo con IMPRESSION: No acute finding. Negative acute noncontrast CT of the brain. No acute fracture or dislocation of the cervical spine. No facial bone fracture is seen
--- NOTE | ~2021-12-11 | CT_ITS ---
Indication: Fall, pain EXAMINATION: CT cervical spine, CT brain, CT facial bones. This CT examination was performed using dose optimization techniques as appropriate, variously including the following: *Automated exposure control *Adjustment of mA and/or kV according to patient size (this includes techniques or standardized protocols for targeted exams where dose is matched to indication/reason for exam; i.e. extremities or head) *Use of iterative reconstruction technique. Radiation dose is 926 and [address] brain; Comparison 08/08/2017. There is no midline shift. There is no mass effect. There is no hemorrhage. The basal cisterns appear patent. The posterior fossa risk grossly within normal limits. There is no extra-axial collection. There is once again atrophy and white matter ischemic change. No fracture is seen on the bone windows. Sinus disease in left maxillary sinus. CT cervical spine; Degenerative changes. There is no acute fracture or dislocation. CT facial bones. No acute fracture. CT/CT facial bones wo con IMPRESSION: No acute finding. Negative acute noncontrast CT of the brain. No acute fracture or dislocation of the cervical spine. No facial bone fracture is seen
--- NOTE | ~2021-12-11 | CT_ITS ---
Indication: Fall, pain EXAMINATION: CT cervical spine, CT brain, CT facial bones. This CT examination was performed using dose optimization techniques as appropriate, variously including the following: *Automated exposure control *Adjustment of mA and/or kV according to patient size (this includes techniques or standardized protocols for targeted exams where dose is matched to indication/reason for exam; i.e. extremities or head) *Use of iterative reconstruction technique. Radiation dose is 926 [address] brain; Comparison 08/08/2017. There is no midline shift. There is no mass effect. There is no hemorrhage. The basal cisterns appear patent. The posterior fossa risk grossly within normal limits. There is no extra-axial collection. There is once again atrophy and white matter ischemic change. No fracture is seen on the bone windows. Sinus disease in left maxillary sinus. CT cervical spine; Degenerative changes. There is no acute fracture or dislocation. CT facial bones. No acute fracture. CT/CT head/brain wo con IMPRESSION: No acute finding. Negative acute noncontrast CT of the brain. No acute fracture or dislocation of the cervical spine. No facial bone fracture is seen
--- NOTE | ~2021-12-11 | CT_ITS ---
EXAM: 1. CTA chest (PE protocol) 2. CT abdomen pelvis with contrast INDICATION: Shortness of breath and abdominal pain status post fall COMPARISON: CT chest, abdomen and pelvis 01/04/2021 TECHNIQUE: Multidetector helical imaging of the chest, abdomen, and pelvis was obtained from the thoracic inlet through the pubic symphysis following administration of 85 cc of Omnipaque 350 IV contrast. Coronal, sagittal and MIP reformatted images were obtained and also reviewed. Today's examination is limited secondary to difficulties with patient positioning. Evaluation of pelvis is also limited secondary to extensive streak artifact from bilateral hip prostheses. DLP: 1404 mGy-cm FINDINGS: CHEST: Central airways are patent. Lungs are adequately aerated. Emphysematous changes are noted. There is dependent atelectasis bilaterally. Biapical scarring/architectural distortion is also noted. Calcified granuloma the right lung base again appreciated. No large pulmonary mass. Similar mild pleural thickening of the left anterior chest wall, nonspecific The heart is enlarged. Coronary artery calcifications are present. AICD leads are stable in position. There is no pericardial effusion. Normal caliber thoracic aorta. No central or segmental pulmonary emboli. Evaluation for subsegmental pulmonary emboli is limited due to artifact. There is no gross mediastinal lymphadenopathy. No enlarged axillary lymph nodes. ABDOMEN/PELVIS: The liver and gallbladder are normal in appearance. The pancreas, spleen and adrenal glands are unremarkable. Symmetrically enhancing kidneys. Similar left parapelvic cysts. There is no hydronephrosis of either kidney. Similar bilateral perinephric stranding. Normal caliber loops of small and large bowel. Colonic diverticulosis without CT evidence to suggest active diverticulitis. Similar surgical changes of the cecum. Normal caliber abdominal aorta. The bladder is suboptimally visualized due to streak artifact but appears grossly unremarkable. There are numerous surgical clips within the deep pelvis. No gross free pelvic fluid. No inguinal lymphadenopathy. OSSEOUS STRUCTURES Diffuse osteopenia. Degenerative changes of the spine, shoulders and hips. Healed right anterior rib fracture. CT/CT angio chest PE protocol IMPRESSION: 1. No CT evidence for acute abnormality within the chest, abdomen or pelvis. 2. No central or segmental pulmonary emboli. 3. Colonic diverticulosis. This CT examination was performed using dose optimization techniques as appropriate, variously including the following: *Automated exposure control *Adjustment of mA and/or kV according to patient size (this includes techniques or standardized protocols for targeted exams where dose is matched to indication/reason for exam; i.e. extremities or head) *Use of iterative reconstruction technique
--- NOTE | 2021-12-11 15:00 | PC.NURSE ---
pt a&ox3, vss, monitor technician applied - left bundle branch block w occ PVCs, c/o 8 neck pain due to c-spine collar.
--- NOTE | 2021-12-11 15:02 | ED_ITS ---
HPI - Fall General Chief Complaint: Fall Stated Complaint: FALL W/FACIAL LAC,+CCOLLAR PER EMS Time Seen by Provider: 12/11/21 14:53 Source: patient Mode of arrival: ambulatory Limitations: no limitations History of Present Illness HPI Narrative: This is an 81-year-old male past medical history significant for hyp othyroidism, SVT, atrial fibrillation, left bundle-branch block, ICD in place presenting to the emergency department status post trip and fall at home landing on his face. According to patient he had no preceding symptoms, he tells me that he tripped on a garbage bag on his porch, he fell to the ground hitting his head and chest he was unable to get up by himself. He reports chest pain, shortness of breath and pain to his face status post fall. Patient is currently taking aspirin daily however no other blood thinners. He tells me that initially he had substernal chest pain he reported this to his who found him shortly after he fell his gave him nitro x2 he now reports no chest pain or shortness of breath. He has no other medical complaints at this time. MD complaint: fall Onset (ago): minute(s) (45) Fall from: standing Fall witnessed: no Place fall occurred: home Loss of consciousness: none Prolonged down time: no Symptoms prior to fall: none Context: tripped/slipped Location of injury: head, face, chest and abdomen Related Data Home Medications Medication Instructions Recorded Confirmed atorvastatin 20 mg tablet 20 mg PO QPM 01/04/21 01/04/21 clopidogrel 75 mg tablet 1 tab PO DAILY 01/04/21 01/04/21 levothyroxine 75 mcg tablet 37.5 mcg PO DAILY 01/04/21 01/04/21 pantoprazole 40 mg tablet,delayed 40 mg PO DAILY 01/04/21 01/04/21 release (Protonix) sacubitril 49 mg-valsartan 51 mg 1 tab PO BID 01/04/21 01/04/21 tablet (Entresto) Previous Rx's Medication Instructions Recorded amiodarone 200 mg tablet 200 mg PO DAILY #0 tab 01/05/21 isosorbide mononitrate 30 mg 30 mg PO DAILY 30 Days #30 tab 01/05/21 tablet,extended release 24 hr metoprolol tartrate 25 mg tablet 50 mg PO BID 30 Days #120 tab 01/05/21 Allergies Allergy/AdvReac Type Severity Reaction Status Date / Time acetaminophen [From PERCOCET] Allergy Unknown HIVES Verified 12/11/21 14:44 aspirin [From PERCODAN] Allergy Unknown HIVES Verified 12/11/21 14:44 cefotetan [From CEFOTAN] Allergy Unknown HIVES Verified 12/11/21 14:44 oxycodone [From PERCODAN] Allergy Unknown HIVES Verified 12/11/21 14:44 Review of Systems Review of Systems: Constitutional : No Weight loss, No Fever, No Chills, No Fatigue, No Malaise ENT/Mouth : No sore throat, No Rhinorrhea Eyes: No Eye Pain, No Swelling, No Redness Cardiovascular : + Chest Pain, + SOB, No Dyspnea on Exertion, No Orthopnea, No Edema, No Palpitations Respiratory : No Cough, No Sputum, No Wheezing Gastrointestinal : No Nausea, No Vomiting, No Diarrhea, No Constipation, No abdominal Pain, No Hematochezia, No Melena Genitourinary : No Dysuria, No Urinary Frequency, No Hematuria, Musculoskeletal : No joint pain, No Myalgias, No Joint Swelling Skin : No Skin Lesions, No rash Neuro : No Weakness, No Numbness, No Dizziness, No Headache Psych : No Anxiety/Panic, No Depression All other systems reviewed and are negative Yes all other systems are reviewed and are negative [facility] Past Medical History Attestation statement: The following information was validated with the patient. Source: old records reviewed and nursing notes reviewed Medical History Afib CHF (congestive heart failure) Coronary artery disease Hypothyroidism ICD (implantable cardioverter-defibrillator) in place Ischemic cardiomyopathy Left bundle branch block Pacemaker Prostate cancer SVT (supraventricular tachycardia) Surgical History History of bowel resection Hx of appendectomy Stented coronary artery Social History Social History Alcohol intake: current Alcohol intake frequency: holidays/special occasions only Alcohol type: hard liquor Patient Tobacco Use Status: Former Tobacco user Use of substances other than those prescribed or required for medical reasons: No Advance Directives: No Advance Directives Information Provided: Yes service: No Current occupational status: retired Physical Exam Vital Signs: Vital Signs: Last Vital Signs Temp 97.9 F 12/11/21 17:12 Pulse 72 12/11/21 17:12 Resp 18 12/11/21 17:12 BP 151/72 H 12/11/21 17:12 Pulse Ox 98 12/11/21 17:12 BMI result Body Mass Index 25.8 Vital signs stable. Appearance: Alert.? Oriented X3.? No acute distress.? Head: Normocephalic, atraumatic, no step-offs or deformities + abrassions to face left side of scalp and bridge of nose. Eyes: Pupils equal, round and reactive to light.? ENT: Pharynx normal.? Neck: Normal inspection.? Neck supple.? CVS: Normal heart rate and rhythm.? Pulses normal.? Respiratory: No respiratory distress.? Breath sounds normal.? Abdomen: Soft and nontender.? Skin: Skin warm and dry.? Normal skin color.? Normal skin turgor.? Extremities: No lower extremity edema.? No calf ttp. 5/5 strength to bilateral upper and lower extremities Back: No midline tenderness, no C-spine tenderness, full range of motion, no CVA tenderness bilaterally Neuro: Oriented X 3.? No motor deficit.? No sensory deficit. CN 2-12 intact Course Reevaluation(s) Reevaluation #1: CBC appears to be around patient's baseline. Platelets low however they have been low in the past. Patient's BUN and creatinine slightly higher than baseline. Patient will receive hydration. No other acute electrolyte abnormalities requiring intervention. Trop 8.9, repeat ordered for 1829. EKG pending, scans pending. Time: 16:09 Reevaluation #2: CT of the chest, abdomen and pelvis with no CT evidence for acute abnormality. No central or segmental pulmonary emboli. Colonic diverticulosis noted however patient tells me this is chronic in nature. CT of the cervical spine with no acute fractures, dislocations or subluxations. No fractures of facial bones. No acute findings, in brain. Time: 18:47 Reevaluation #3: Improving kidney function, tolerating p.o. fluids encouraged hydration. Patient tells me he is not having chest pain, shortness of breath. He tells me he is feeling well and would like to go home. 2nd troponin almost double initial. Based off patient's age and poor mobility is I feel as though patient should be admitted to the hospitalist team. Will reach out to cardiology. Time: 19:27 Additional Reevaluation(s): Due to patients Comorbidities recommends admit. MDM - Fall MDM Narrative Medical decision making narrative: 1510 81-year-old male currently taking aspirin daily presents to the emergency department status post mechanical trip and fall on his porch landing on his face and chest wall, who reported chest pain, shortness of breath and pain to his face status post fall. He was given nitro x2 at home and he states that his chest pain and shortness of breath improved. Upon physical examination patient has clear breath sounds bilaterally, regular rate and rhythm, he has small abrasions to bridge of nose in the left side of the forehead he is in a cervical collar out of precaution. No pain with palpation of anterior chest wall or abdomen. Abdomen is soft nontender nondistended. Neuro exam is nonfocal. Plan at this time is labs, imaging, urine. I will also obtain an EKG and a troponin to rule out ACS. As patient was experiencing shortness of breath and chest pain I will do a CTA of the chest to rule out PE as patient is a high risk patient. Medical Records Attestation: I reviewed the patient's medical records. Lab Data Attestation: I reviewed the patient's lab results. Result diagrams: 12/11/21 15:28 12/11/21 18:37 Labs: Lab Results 12/11/21 12/11/21 12/11/21 Range/Units 15:28 15:28 15:28 WBC 4.8 (4.8-10.8) X10*3/uL RBC 4.28 L (4.60-5.80) X10*6/uL Hgb 13.1 L (14.0-18.0) g/dl Hct 39.3 L (42.0-52.0) % MCV 91.8 (80.0-98.0) fL MCH 30.6 (27.0-33.0) pg MCHC 33.3 (31.0-36.0) g/dl RDW 13.5 (11.0-16.0) % Plt Count 133 L (160-400) X10*3/uL MPV 11.6 (9.4-12.4) fL Immature Gran % (Auto) 0.2 (0.0-0.4) % Neut % (Auto) 70.0 (45-73) % Lymph % (Auto) 17.7 L (20-40) % [place] % (Auto) 9.8 (2-11) % Eos % (Auto) 1.3 (0-4) % Baso % (Auto) 1.0 (0-2) % Lymph # (Auto) 0.9 L (1.2-4.9) X10*3/uL [place] # (Auto) 0.5 (0.1-1.2) X10*3/uL Eos # (Auto) 0.1 (0.0-0.4) X10*3/uL Baso # (Auto) 0.1 (0.0-0.2) X10*3/uL Abs Immat Gran (auto) 0.01 (0.00-0.03) X10*3/uL Absolute Neuts (auto) 3.4 (2.0-8.3) x10*3/uL Absolute Nucleated RBC 0.000 (0.0-0.012) X10*3/uL Nucleated RBC % (auto) 0.0 (0.0-0.2) /100WBC PT (9.9-13.0) SEC INR (0.9-1.1) Sodium 139 (135-145) mmol/L Potassium 4.3 (3.3-5.1) mmol/L Chloride 108 (96-108) mmol/L Carbon Dioxide 24 (22-29) mmol/L Anion Gap 11 L (12-20) BUN 19 H (9-16) mg/dL Creatinine 1.53 H (0.5-1.4) mg/dL Estim Creat Clear Calc 37.7 Estimated GFR 44 Random Glucose 104 (60-115) mg/dL Calcium 9.0 (8.4-10.2) mg/dL Magnesium 2.0 (1.6-2.6) mg/dL Total Bilirubin 0.6 (0.0-1.0) mg/dL AST 22 (5-37) U/L ALT 17 (0-40) U/L Alkaline Phosphatase 68 (39-117) U/L Troponin I High Sens (<3.5-35.0) ng/L Total Protein 6.4 L (6.5-8.0) g/dL Albumin 3.9 (3.5-5.0) g/dL Urine Color Urine Appearance Urine pH (5.0-8.0) Ur Specific [place] (1.005-1.025) Urine Protein (NEG-TRACE) MG/DL Urine Glucose (UA) (NEG) MG/DL Urine Ketones (NEG) MG/DL Urine Blood (NEG) Urine Nitrite (NEG) Ur Leukocyte Esterase (NEG) COVID-19 (EVIN) Negative (Negative) COVID-19 Clin Com See Note 12/11/21 12/11/21 12/11/21 Range/Units 15:28 15:28 17:15 WBC (4.8-10.8) X10*3/uL RBC (4.60-5.80) X10*6/uL Hgb (14.0-18.0) g/dl Hct (42.0-52.0) % MCV (80.0-98.0) fL MCH (27.0-33.0) pg MCHC (31.0-36.0) g/dl RDW (11.0-16.0) % Plt Count (160-400) X10*3/uL MPV (9.4-12.4) fL Immature Gran % (Auto) (0.0-0.4) % Neut % (Auto) (45-73) % Lymph % (Auto) (20-40) % [place] % (Auto) (2-11) % Eos % (Auto) (0-4) % Baso % (Auto) (0-2) % Lymph # (Auto) (1.2-4.9) X10*3/uL [place] # (Auto) (0.1-1.2) X10*3/uL Eos # (Auto) (0.0-0.4) X10*3/uL Baso # (Auto) (0.0-0.2) X10*3/uL Abs Immat Gran (auto) (0.00-0.03) X10*3/uL Absolute Neuts (auto) (2.0-8.3) x10*3/uL Absolute Nucleated RBC (0.0-0.012) X10*3/uL Nucleated RBC % (auto) (0.0-0.2) /100WBC PT 12.8 (9.9-13.0) SEC INR 1.1 (0.9-1.1) Sodium (135-145) mmol/L Potassium (3.3-5.1) mmol/L Chloride (96-108) mmol/L Carbon Dioxide (22-29) mmol/L Anion Gap (12-20) BUN (9-16) mg/dL Creatinine (0.5-1.4) mg/dL Estim Creat Clear Calc Estimated GFR Random Glucose (60-115) mg/dL Calcium (8.4-10.2) mg/dL Magnesium (1.6-2.6) mg/dL Total Bilirubin (0.0-1.0) mg/dL AST (5-37) U/L ALT (0-40) U/L Alkaline Phosphatase (39-117) U/L Troponin I High Sens 8.9 (<3.5-35.0) ng/L Total Protein (6.5-8.0) g/dL Albumin (3.5-5.0) g/dL Urine Color YELLOW Urine Appearance CLEAR Urine pH 6.0 (5.0-8.0) Ur Specific [place] 1.015 (1.005-1.025) Urine Protein NEG (NEG-TRACE) MG/DL Urine Glucose (UA) NEG (NEG) MG/DL Urine Ketones NEG (NEG) MG/DL Urine Blood NEG (NEG) Urine Nitrite NEG (NEG) Ur Leukocyte Esterase NEG (NEG) COVID-19 (EVIN) (Negative) COVID-19 Clin Com 12/11/21 12/11/21 Range/Units 18:37 18:37 WBC (4.8-10.8) X10*3/uL RBC (4.60-5.80) X10*6/uL Hgb (14.0-18.0) g/dl Hct (42.0-52.0) % MCV (80.0-98.0) fL MCH (27.0-33.0) pg MCHC (31.0-36.0) g/dl RDW (11.0-16.0) % Plt Count (160-400) X10*3/uL MPV (9.4-12.4) fL Immature Gran % (Auto) (0.0-0.4) % Neut % (Auto) (45-73) % Lymph % (Auto) (20-40) % [place] % (Auto) (2-11) % Eos % (Auto) (0-4) % Baso % (Auto) (0-2) % Lymph # (Auto) (1.2-4.9) X10*3/uL [place] # (Auto) (0.1-1.2) X10*3/uL Eos # (Auto) (0.0-0.4) X10*3/uL Baso # (Auto) (0.0-0.2) X10*3/uL Abs Immat Gran (auto) (0.00-0.03) X10*3/uL Absolute Neuts (auto) (2.0-8.3) x10*3/uL Absolute Nucleated RBC (0.0-0.012) X10*3/uL Nucleated RBC % (auto) (0.0-0.2) /100WBC PT (9.9-13.0) SEC INR (0.9-1.1) Sodium 139 (135-145) mmol/L Potassium 4.6 (3.3-5.1) mmol/L Chloride 108 (96-108) mmol/L Carbon Dioxide 24 (22-29) mmol/L Anion Gap 12 (12-20) BUN 18 H (9-16) mg/dL Creatinine 1.32 (0.5-1.4) mg/dL Estim Creat Clear Calc 43.7 Estimated GFR 52 Random Glucose 91 (60-115) mg/dL Calcium 8.7 (8.4-10.2) mg/dL Magnesium (1.6-2.6) mg/dL Total Bilirubin 0.7 (0.0-1.0) mg/dL AST 25 (5-37) U/L ALT 15 (0-40) U/L Alkaline Phosphatase 67 (39-117) U/L Troponin I High Sens 16.7 D (<3.5-35.0) ng/L Total Protein 6.3 L (6.5-8.0) g/dL Albumin 3.7 (3.5-5.0) g/dL Urine Color Urine Appearance Urine pH (5.0-8.0) Ur Specific [place] (1.005-1.025) Urine Protein (NEG-TRACE) MG/DL Urine Glucose (UA) (NEG) MG/DL Urine Ketones (NEG) MG/DL Urine Blood (NEG) Urine Nitrite (NEG) Ur Leukocyte Esterase (NEG) COVID-19 (EVIN) (Negative) COVID-19 Clin Com ECG Data Attestation: I personally reviewed and interpreted this ECG as follows: ECG interpretation date: 12/11/21 ECG interpretation time: 17:28 Prior ECG tracings: available for review Interpretation: Ventricular rate of 72 CO normal, QRS normal, QT / QTC normal. EKG shows normal sinus rhythm, left axis deviation, lbbb no ST elevations or inversions concerning for ischemia. No significant changes when compared with ekg december 2020 Critical Care Time Critical Care Time Critical Care Time: Yes Total Critical Care Time: 35 Attestation: I attest to this time spent taking care of the patient, obtaining history, physical, reviewing labs, imaging, speaking to my attending, speaking to specialist. Discharge Plan Discharge Clinical Impression: Fall, Left bundle branch block, Abrasion, Elevated troponin Patient Disposition: Admitted As Inpatient
[2021-12-11 15:42] LABS: MANUAL DIFF FLAG NO
[2021-12-11 15:46] LABS: Basophils Absolute Auto 0.1 X10*3/uL (0.0-0.2); Eosinophils Absolute Auto 0.1 X10*3/uL (0.0-0.4); Eosinophils Percent Auto 1.3 % (0-4); Hematocrit 39.3 % (42.0-52.0); Hemoglobin 13.1 g/dl (14.0-18.0); Imm Gran Abs Auto 0.01 X10*3/uL (0.00-0.03); Imm Gran Pct Auto 0.2 % (0.0-0.4); Lymphocytes Absolute Auto 0.9 X10*3/uL (1.2-4.9); Lymphocytes Percent Auto 17.7 % (20-40); Mean Corpuscular HGB Conc 33.3 g/dl (31.0-36.0); Mean Corpuscular Hemoglobin 30.6 pg (27.0-33.0); Mean Corpuscular Volume 91.8 fL (80.0-98.0); Mean Platelet Volume 11.6 fL (9.4-12.4); Monocytes Absolute Auto 0.5 X10*3/uL (0.1-1.2); Monocytes Percent Auto 9.8 % (2-11); Neutrophils Absolute Auto 3.4 x10*3/uL (2.0-8.3); Platelet Count 133 X10*3/uL (160-400); Red Blood Count 4.28 X10*6/uL (4.60-5.80); Red Cell Distribution Width 13.5 % (11.0-16.0); White Blood Count 4.8 X10*3/uL (4.8-10.8)
[2021-12-11 15:48] LABS: INTERNATIONAL NORM RATIO 1.1 (0.9-1.1); Prothrombin Time 12.8 SEC (9.9-13.0)
[2021-12-11 15:58] LABS: COVID-19 Test Negative (Negative); IDNOW Serial# 16C4AD1C
[2021-12-11 16:04] LABS: Alanine Aminotransferase 17 U/L (0-40); Albumin Level 3.9 g/dL (3.5-5.0); Alkaline Phosphatase 68 U/L (39-117); Anion Gap 11 (12-20); Aspartate Amino Transferase 22 U/L (5-37); Bilirubin Total 0.6 mg/dL (0.0-1.0); Blood Urea Nitrogen 19 mg/dL (9-16); Carbon Dioxide 24 mmol/L (22-29); Chloride 108 mmol/L (96-108); Creatinine Clr Calc Pharmacy 37.7; Estimated Glomerular Filt Rate 44; Glucose Random 104 mg/dL (60-115); Potassium 4.3 mmol/L (3.3-5.1); Sodium 139 mmol/L (135-145); Total Protein 6.4 g/dL (6.5-8.0)
[2021-12-11 16:08] LABS: Troponin-I High Sensitivity 8.9 ng/L (<3.5-35.0)
--- NOTE | 2021-12-11 16:14 | ECG_ITS ---
Test Reason : FALL Blood Pressure : / mmHG Vent. Rate : 072 BPM Atrial Rate : 072 BPM P-R Int : 196 ms QRS Dur : 194 ms QT Int : 482 ms P-R-T Axes : 089 -32 128 degrees QTc Int : 527 ms Normal sinus rhythm Left axis deviation Left bundle branch block Abnormal ECG When compared with ECG of 04-JAN-2021 18:46, Sinus rhythm has replaced Electronic atrial pacemaker T wave inversion no longer evident in Inferior leads Referred By: Megan Nagy Electronically Signed By:GAURAV HANDLEY
[2021-12-11] MEDS: 0.9 % Sodium Chloride 1,000 ML 999 ML IV (17:15)
--- NOTE | 2021-12-11 17:16 | PC.NURSE ---
pt a&ox3, laboratory monitor intact, vss, ivf running per order, urine obtained, family at bedside, will continue to monitor
[2021-12-11 17:24] LABS: Appearance Urine CLEAR; Color Urine YELLOW; Glucose Urine UA NEG (NEG); Leukocyte Esterase Urine NEG (NEG); Nitrite Urine NEG (NEG); Specific Gravity - Urine 1.015 (1.005-1.025); Urine Blood NEG (NEG); Urine Ketones NEG (NEG); Urine Protein NEG (NEG-TRACE)
[2021-12-11] MEDS: iohexoL 350 MG/ML 100 ML INFUS..BTL IV (17:33)
[2021-12-11 19:02] LABS: Alanine Aminotransferase 15 U/L (0-40); Albumin Level 3.7 g/dL (3.5-5.0); Alkaline Phosphatase 67 U/L (39-117); Anion Gap 12 (12-20); Aspartate Amino Transferase 25 U/L (5-37); Bilirubin Total 0.7 mg/dL (0.0-1.0); Blood Urea Nitrogen 18 mg/dL (9-16); Calcium 8.7 mg/dL (8.4-10.2); Carbon Dioxide 24 mmol/L (22-29); Chloride 108 mmol/L (96-108); Creatinine Clr Calc Pharmacy 43.7; Estimated Glomerular Filt Rate 52; Glucose Random 91 mg/dL (60-115); Potassium 4.6 mmol/L (3.3-5.1); Sodium 139 mmol/L (135-145); Total Protein 6.3 g/dL (6.5-8.0)
[2021-12-11 19:08] LABS: Troponin-I High Sensitivity 16.7 ng/L (<3.5-35.0)
--- NOTE | 2021-12-11 19:47 | P.HPHOSP_ITS ---
History of Present Illness Date of Service: 12/11/21 Chief Complaint: Chest pain 81-year-old male with past medical history of hypertension, hyperlipidemia, CAD status post stent placement, AFib Not on Ac, history of AICD; presented to the hospital today with a chief complaint of chest pain. Patient reported that he had a fall at home; fell on his face, hit his chest wall; followed by started pt felt shortness of breath; no associated lightheadedness dizziness or diaphoresis. Denies any fever chills cough. Denies any recent travel or sick contacts. At the time of my interview patient denies any chest pain. Denies any numbness tingling or focal weakness. Denies any loss of consciousness or seizure-like activity when he had a fall. denies any chest pain. Review of all other systems is negative except mentioned above ER course: Per ER team patient CT angio chest no evidence of pulmonary embolism or rib fractures. CT head showed no acute findings; EKG was nonischemic; patient received sublingual nitroglycerin by his when he had chest pain at home. Patient troponin was 8.9 followed by 16.7. Notified Dr. Miner from Cardiology who suggested admission to the hospital for observation. [facility] Medical History Afib CHF (congestive heart failure) Coronary artery disease Hypothyroidism ICD (implantable cardioverter-defibrillator) in place Ischemic cardiomyopathy Left bundle branch block Pacemaker Prostate cancer SVT (supraventricular tachycardia) Surgical History History of bowel resection Hx of appendectomy Stented coronary artery Social History Alcohol intake: current Alcohol intake frequency: holidays/special occasions only Alcohol type: hard liquor Patient Tobacco Use Status: Former Tobacco user Use of substances other than those prescribed or required for medical reasons: No Advance Directives: No Advance Directives Information Provided: Yes service: No Current occupational status: retired Meds Allergies Allergy/AdvReac Type Severity Reaction Status Date / Time acetaminophen [From PERCOCET] Allergy Unknown HIVES Verified 12/11/21 14:44 aspirin [From PERCODAN] Allergy Unknown HIVES Verified 12/11/21 14:44 cefotetan [From CEFOTAN] Allergy Unknown HIVES Verified 12/11/21 14:44 oxycodone [From PERCODAN] Allergy Unknown HIVES Verified 12/11/21 14:44 Active Medications: Current Medications Pharmacy Consult (Consult Rx Perform Med Rec) 1 each MISCELLANE ONCE PRN PRN Reason: Consult order Home Medications Medication Instructions Recorded Confirmed Last Taken Type atorvastatin 20 mg tablet 20 mg PO QPM 01/04/21 12/11/21 Unknown History levothyroxine 75 mcg tablet 37.5 mcg PO BEDTIME 01/04/21 12/11/21 12/10/21 History sacubitril 49 mg-valsartan 51 mg 1 tab PO BID 01/04/21 12/11/21 12/10/21 History tablet (Entresto) amiodarone 100 mg tablet 1 tab PO DAILY 12/11/21 12/11/21 12/10/21 History aspirin 81 mg tablet,delayed 81 mg PO DAILY 12/11/21 12/11/21 12/10/21 History release cholecalciferol (vitamin D3) 25 25 mcg PO DAILY 12/11/21 12/11/21 12/10/21 History mcg (1,000 unit) tablet cyanocobalamin (vitamin B-12) 1,000 mcg PO DAILY 12/11/21 12/11/21 12/10/21 Hist ory 1,000 mcg tablet magnesium 250 mg tablet 500 mg PO DAILY 12/11/21 12/11/21 12/11/21 History metoprolol tartrate 25 mg tablet 25 mg PO BID 12/11/21 12/11/21 12/10/21 History omeprazole 40 mg capsule,delayed 1 cap PO DAILY 12/11/21 12/11/21 12/11/21 History release Physical Exam Vital Signs and Narrative: Vital Signs: Last Vital Signs Temp 97.9 F 12/11/21 17:12 Pulse 72 12/11/21 17:12 Resp 18 12/11/21 17:12 BP 151/72 H 12/11/21 17:12 Pulse Ox 98 12/11/21 17:12 BMI result Body Mass Index 25.8 Gen: Appears be in no acute distress HEENT: NCAT, Moist mucosa. Pulmonary: Vesicular breath sounds, fair air entry CVS: Normal S1-S2 Abdomen: BS+, Soft, Nontender Extremities: Warm well perfused Neuro: Alert and awake. Grossly nonfocal Results Labs CBC and Chem 7: 12/11/21 15:28 12/11/21 18:37 Labs: Laboratory Results - last 24 hr 12/11/21 12/11/21 12/11/21 15:28 15:28 15:28 MCV 91.8 MCH 30.6 MCHC 33.3 RDW 13.5 Plt Count 133 L MPV 11.6 Immature Gran % (Auto) 0.2 Neut % (Auto) 70.0 Lymph % (Auto) 17.7 L [place] % (Auto) 9.8 Eos % (Auto) 1.3 Baso % (Auto) 1.0 Lymph # (Auto) 0.9 L [place] # (Auto) 0.5 Eos # (Auto) 0.1 Baso # (Auto) 0.1 Abs Immat Gran (auto) 0.01 Absolute Neuts (auto) 3.4 Absolute Nucleated RBC 0.000 Nucleated RBC % (auto) 0.0 PT INR Anion Gap 11 L Estim Creat Clear Calc 37.7 Estimated GFR 44 Random Glucose 104 Calcium 9.0 Magnesium 2.0 Total Bilirubin 0.6 AST 22 ALT 17 Alkaline Phosphatase 68 Troponin I High Sens Total Protein 6.4 L Albumin 3.9 Urine Color Urine Appearance Urine pH Ur Specific [place] Urine Protein Urine Glucose (UA) Urine Ketones Urine Blood Urine Nitrite Ur Leukocyte Esterase COVID-19 (EVIN) Negative COVID-19 Clin Com See Note 12/11/21 12/11/21 12/11/21 15:28 15:28 17:15 MCV MCH MCHC RDW Plt Count MPV Immature Gran % (Auto) Neut % (Auto) Lymph % (Auto) [place] % (Auto) Eos % (Auto) Baso % (Auto) Lymph # (Auto) [place] # (Auto) Eos # (Auto) Baso # (Auto) Abs Immat Gran (auto) Absolute Neuts (auto) Absolute Nucleated RBC Nucleated RBC % (auto) PT 12.8 INR 1.1 Anion Gap Estim Creat Clear Calc Estimated GFR Random Glucose Calcium Magnesium Total Bilirubin AST ALT Alkaline Phosphatase Troponin I High Sens 8.9 Total Protein Albumin Urine Color YELLOW Urine Appearance CLEAR Urine pH 6.0 Ur Specific [place] 1.015 Urine Protein NEG Urine Glucose (UA) NEG Urine Ketones NEG Urine Blood NEG Urine Nitrite NEG Ur Leukocyte Esterase NEG COVID-19 (EVIN) COVID-19 Clin Com 12/11/21 12/11/21 18:37 18:37 MCV MCH MCHC RDW Plt Count MPV Immature Gran % (Auto) Neut % (Auto) Lymph % (Auto) [place] % (Auto) Eos % (Auto) Baso % (Auto) Lymph # (Auto) [place] # (Auto) Eos # (Auto) Baso # (Auto) Abs Immat Gran (auto) Absolute Neuts (auto) Absolute Nucleated RBC Nucleated RBC % (auto) PT INR Anion Gap 12 Estim Creat Clear Calc 43.7 Estimated GFR 52 Random Glucose 91 Calcium 8.7 Magnesium Total Bilirubin 0.7 AST 25 ALT 15 Alkaline Phosphatase 67 Troponin I High Sens 16.7 D Total Protein 6.3 L Albumin 3.7 Urine Color Urine Appearance Urine pH Ur Specific [place] Urine Protein Urine Glucose (UA) Urine Ketones Urine Blood Urine Nitrite Ur Leukocyte Esterase COVID-19 (EVIN) COVID-19 Clin Com Imaging Radiologist's Impressions: Impressions Abdomen/Pelvis CT 12/11/21 17:32 IMPRESSION: 1. No CT evidence for acute abnormality within the chest, abdomen or pelvis. 2. No central or segmental pulmonary emboli. 3. Colonic diverticulosis. This CT examination was performed using dose optimization techniques as appropriate, variously including the following: *Automated exposure control *Adjustment of mA and/or kV according to patient size (this includes techniques or standardized protocols for targeted exams where dose is matched to indication/reason for exam; i.e. extremities or head) *Use of iterative reconstruction technique Chest CTA 12/11/21 17:32 IMPRESSION: 1. No CT evidence for acute abnormality within the chest, abdomen or pelvis. 2. No central or segmental pulmonary emboli. 3. Colonic diverticulosis. This CT examination was performed using dose optimization techniques as appropriate, variously including the following: *Automated exposure control *Adjustment of mA and/or kV according to patient size (this includes techniques or standardized protocols for targeted exams where dose is matched to indication/reason for exam; i.e. extremities or head) *Use of iterative reconstruction technique Cervical Spine CT 12/11/21 17:39 IMPRESSION: No acute finding. Negative acute noncontrast CT of the brain. No acute fracture or dislocation of the cervical spine. No facial bone fracture is seen Face CT 12/11/21 17:39 IMPRESSION: No acute finding. Negative acute noncontrast CT of the brain. No acute fracture or dislocation of the cervical spine. No facial bone fracture is seen Head CT 12/11/21 17:39 IMPRESSION: No acute finding. Negative acute noncontrast CT of the brain. No acute fracture or dislocation of the cervical spine. No facial bone fracture is seen Assessment and Plan (1) Chest pain: Status: Acute Plan 81-year-old male with past medical history of hypertension, hyperlipidemia, CAD status post stent placement, AFib -> not on anticoagulation,Hx AICD; presented to the hospital today with a chief complaint of chest pain. SOB: Troponin 8.9 followed by 16.7 EKG nonischemic Cardiology consult Telemetry CTA chest: negative. Fall: Mechanical in nature. Exam grossly nonfocal. CT head, CT face, CT cervical spine, CT chest abdomen pelvis showed no acute findings. PT/OT eventually History of hypertension/hyperlipidemia: Continue home metoprolol, statin, and rest of History of hypothyroidism: Continue home levothyroxine History of AFib: Continue home amiodarone, DVT prophylaxis: Subcu heparin Code status: Full code Quality Stroke Does the patient have a stroke diagnosis?: No VTE Prior VTE?: No VTE Risk Level:: Medical - moderate - high VTE Device Contraindication: Treatment Not Indicated VTE Drug Contraindication: N/A - Med Ordered
--- NOTE | 2021-12-11 20:29 | PC.NURSE ---
pt a&ox3, vss, requesting food - given two peanut butter & jelly sandwiches, milk and pudding.
[2021-12-11] MEDS: Heparin Sodium,Porcine 5,000 UNIT/ML VIAL 5000 UNIT SUBCUT (20:33)
--- NOTE | 2021-12-11 20:36 | PC.NURSE ---
medicated per provider order. no new orders at this time.
--- NOTE | 2021-12-11 20:49 | PHA.MEDREC ---
Pharmacy Consult ? Medication Reconciliation Pharmacy has completed the medication reconciliation.
--- NOTE | 2021-12-11 21:48 | PC.NURSE ---
report called to overflow
--- NOTE | 2021-12-11 22:13 | PC.NURSE ---
PATIENT CAME FROM MAIN ED TO OVERFLOW ,PATIENT WALK TO THE BATHROOM WITH 1 ASST .
[2021-12-11] MEDS: 0.9 % Sodium Chloride Flush 3 ML SYRINGE IVFLUSH (23:22)
[2021-12-12 00:10] VITALS: BP 154/76; PULSE 76; RESP 16; TEMP 36.7; O2SAT 98
--- NOTE | 2021-12-12 02:54 | PC.NURSE ---
Addendum entered by Marilee Greene RN 12/12/21 06:15: Noted overnight with strong and loud snoring, and fluctuating HR from SR to ST low teens with BBB, pt noted with few episode of desating to 80s when asleep, O2 at 2L/min via NC provided. Original Note: Assumed care at 2200, pt came from main ED via stretcher, alert and oriented, minimally wobbly and weak, noted with abrasions on forehead nose ridge and lower lip from fall at home, deniesany CP upon first meet, VSS, SR with IVCD in tele on the 80s, slept at intervals, assisted to void in urinal.
[2021-12-12] MEDS: Heparin Sodium,Porcine 5,000 UNIT/ML VIAL 5000 UNIT SUBCUT (03:56)
[2021-12-12 04:00] VITALS: BP 158/91; PULSE 109; RESP 18; TEMP 36.6; O2SAT 93
[2021-12-12 06:29] LABS: MANUAL DIFF FLAG NO
[2021-12-12 06:38] LABS: Basophils Absolute Auto 0.1 X10*3/uL (0.0-0.2); Basophils Percent Auto 0.9 % (0-2); Eosinophils Absolute Auto 0.1 X10*3/uL (0.0-0.4); Eosinophils Percent Auto 1.3 % (0-4); Hematocrit 41.3 % (42.0-52.0); Hemoglobin 13.5 g/dl (14.0-18.0); Imm Gran Abs Auto 0.03 X10*3/uL (0.00-0.03); Imm Gran Pct Auto 0.5 % (0.0-0.4); Lymphocytes Absolute Auto 1.1 X10*3/uL (1.2-4.9); Lymphocytes Percent Auto 19.6 % (20-40); Mean Corpuscular HGB Conc 32.7 g/dl (31.0-36.0); Mean Corpuscular Hemoglobin 30.2 pg (27.0-33.0); Mean Corpuscular Volume 92.4 fL (80.0-98.0); Mean Platelet Volume 11.2 fL (9.4-12.4); Monocytes Absolute Auto 0.5 X10*3/uL (0.1-1.2); Monocytes Percent Auto 8.8 % (2-11); Neutrophils Absolute Auto 3.8 x10*3/uL (2.0-8.3); Neutrophils Percent Auto 68.9 % (45-73); Platelet Count 133 X10*3/uL (160-400); Red Blood Count 4.47 X10*6/uL (4.60-5.80); Red Cell Distribution Width 13.6 % (11.0-16.0); White Blood Count 5.5 X10*3/uL (4.8-10.8)
[2021-12-12 06:54] LABS: Anion Gap 12 (12-20); Blood Urea Nitrogen 15 mg/dL (9-16); Calcium 9.2 mg/dL (8.4-10.2); Carbon Dioxide 24 mmol/L (22-29); Chloride 108 mmol/L (96-108); Creatinine Clr Calc Pharmacy 49.8; Estimated Glomerular Filt Rate > 60; Glucose Random 96 mg/dL (60-115); Potassium 4.6 mmol/L (3.3-5.1); Sodium 139 mmol/L (135-145)
[2021-12-12 08:00] VITALS: BP 130/71; PULSE 83; RESP 18; TEMP 36.8; O2SAT 95
[2021-12-12] MEDS: Magnesium Oxide 400 MG TABLET PO (08:59)
[2021-12-12] MEDS: Metoprolol Tartrate 25 MG TABLET PO (08:59)
[2021-12-12] MEDS: Sacubitril/Valsartan 49/51 1 TAB TABLET PO (08:59)
[2021-12-12] MEDS: Aspirin Enteric Coated 81 MG TABLET.DR PO (08:59)
[2021-12-12] MEDS: Amiodarone HCL 200 MG TABLET 100 MG PO (08:59)
[2021-12-12] MEDS: Cholecalciferol (Vitamin D3) 25 MCG TABLET PO (08:59)
[2021-12-12] MEDS: Cyanocobalamin (Vitamin B-12) 1,000 MCG TABLET 1000 MCG PO (08:59)
[2021-12-12] MEDS: Omeprazole 40 MG CAPSULE.DR PO (09:00)
[2021-12-12] MEDS: 0.9 % Sodium Chloride Flush 3 ML SYRINGE IVFLUSH (09:00)
--- NOTE | 2021-12-12 09:15 | PC.NURSE ---
Pt is resting in hospital bed. On room air O2 sats 95%. pt able to get self to the edge of the bed between care. Pt c/o some neck pain, denying pain medication when offered. VSS. lungs sound clear. CSM in all four extremities intact. Call corcoran and belongings within reach.
[2021-12-12 09:32] VITALS: BP 130/71; PULSE 83; O2SAT 95
--- NOTE | 2021-12-12 11:09 | PM.CNCAR ---
History of Present Illness History of Present Illness Date of Service: 12/12/21 Chief complaint: chest pain Narrative: This is a cardiology consultation regarding fall and chest pain. It seems that yesterday he came back home after going out of his . Then as he was walking inside there were apparently 3 steps. As he climb them somehow he came into contact with the trash bag. This led to a mechanical fall by tripping. It seems that he had a brief episode of chest pain and his gave him sublingual nitroglycerin. Subsequently, admitted. Since that time, he has essentially been symptom free. According to nurse was taking care of the patient as well as patient himself, no issues like recurrent chest pains or new shortness of breath or in fact anything else cardiac related at all. He states he is doing okay. Based on a prior consultation by Dr. Alcocer from last year, complicated cardiac history. History of myocardial infarction [place] few years back and stenting of the LAD but he still had severe ischemic cardiomyopathy. He has a dual-chamber ICD. There is also history of complex PCI to LAD beyond the stent placement and diagonal PTCA as well. It seems that there were issues upgrading to a Bi V system due to difficult venous anatomy. He continues to see [facility]. Review of Systems Review of Systems: Yes all other systems are reviewed and are negative Constitutional: Constitutional: Reports as per HPI Eyes: Eyes: Reports as per HPI ENT: Reports as per HPI Cardiovascular: Cardiovascular: Reports as per HPI, Denies acrocyanosis, Denies cool extremities, Denies chest pain, Denies leg edema, Denies lightheadedness, Denies palpitations and Denies dyspnea Respiratory: Respiratory: Reports as per HPI, Reports no additional respiratory complaints and Denies dyspnea Gastrointestinal: Gastrointestinal: Reports as per HPI and Reports no additional gastrointestinal complaints Genitourinary: Genitourinary: Reports no additional male genitourinary complaints and Reports as per HPI Musculoskeletal: Musculoskeletal: Reports no additional musculoskeletal complaints and Reports as per HPI Integumentary/Breasts: Skin/Breast: Reports system reviewed and no additional complaints, except as docu Neurologic: Reports system reviewed and no additional complaints, except as documented and Reports as per HPI Psychiatric: Psychiatric: Reports no additional psychiatric complaints and Reports as per HPI Endocrine: Endocrine: Reports no additional endocrine complaints, Reports as per HPI and Denies palpitations Hematologic/Lymphatic: Hematologic/Lymphatic: Reports no additional hematologic/lymphatic complaints and Reports as per HPI Allergic/Immunologic: Allergic/Immunologic: Reports no additional allergic/immunologic complaints and Reports as per HPI [facility] Past Medical History Medical History (Updated 12/12/21 @ 11:17 by Fab Miner MD) Afib CHF (congestive heart failure) Coronary artery disease Hypothyroidism ICD (implantable cardioverter-defibrillator) in place Ischemic cardiomyopathy Left bundle branch block Pacemaker Prostate cancer SVT (supraventricular tachycardia) Family History Family History (Updated 12/12/21 @ 11:16 by Fab Miner MD) Mother Diabetes Surgical History Surgical History History of bowel resection Hx of appendectomy Stented coronary artery Social History Social History Alcohol intake: current Alcohol intake frequency: holidays/special occasions only Alcohol type: hard liquor Patient Tobacco Use Status: Former Tobacco user Use of substances other than those prescribed or required for medical reasons: No Advance Directives: No Advance Directives Information Provided: Yes service: No Current occupational status: retired Meds Allergies Allergy/AdvReac Type Severity Reaction Status Date / Time acetaminophen [From PERCOCET] Allergy Unknown HIVES Verified 12/11/21 14:44 aspirin [From PERCODAN] Allergy Unknown HIVES Verified 12/11/21 14:44 cefotetan [From CEFOTAN] Allergy Unknown HIVES Verified 12/11/21 14:44 oxycodone [From PERCODAN] Allergy Unknown HIVES Verified 12/11/21 14:44 Active Medications: Current Medications Amiodarone HCl (Amiodarone Hcl 200 Mg Tablet) 100 mg PO DAILY [facility] Last Admin: 12/12/21 08:59 Dose: 100 mg Documented by: Aspirin (Aspirin Enteric Coated 81 Mg Tablet.) 81 mg PO DAILY [facility] Last Admin: 12/12/21 08:59 Dose: 81 mg Documented by: Atorvastatin Calcium (Atorvastatin Calcium 20 Mg Tablet) 20 mg PO BEDTIME [facility] Cyanocobalamin (Cyanocobalamin (Vitamin B-12) 1,000 Mcg Tablet) 1,000 mcg PO DAILY [facility] Last Admin: 12/12/21 08:59 Dose: 1,000 mcg Documented by: Heparin Sodium (Porcine) (Heparin Sodium,Porcine 5,000 Unit/Ml Vial) 5,000 unit SUBCUT Q8H [facility] Last Admin: 12/12/21 03:56 Dose: 5,000 unit Documented by: Levothyroxine Sodium (Levothyroxine Sodium 75 Mcg Tablet) 37.5 mcg PO BEDTIME [facility] Magnesium Oxide (Magnesium Oxide 400 Mg Tablet) 400 mg PO DAILY [facility] Last Admin: 12/12/21 08:59 Dose: 400 mg Documented by: Metoprolol Tartrate (Metoprolol Tartrate 25 Mg Tablet) 25 mg PO BID [facility]; Protocol Last Admin: 12/12/21 08:59 Dose: 25 mg Documented by: Nitroglycerin (Nitroglycerin 0.4 Mg Tab.Subl) 0.4 mg SUBLINGUAL [id number] PRN PRN Reason: Chest Pain Omeprazole (Omeprazole 40 Mg Capsule.Dr) 40 mg PO DAILY [facility] Last Admin: 12/12/21 09:00 Dose: 40 mg Documented by: Pharmacy Consult (Consult Rx Perform Med Rec) 1 each MISCELLANE ONCE PRN PRN Reason: Consult order Sacubitril/Valsartan (Sacubitril/Valsartan 49/51 1 Tab Tablet) 1 tab PO BID [facility]; Protocol Last Admin: 12/12/21 08:59 Dose: 1 tab Documented by: Senna (Sennosides 8.6 Mg Tablet) 17.2 mg PO BEDTIME PRN PRN Reason: Constipation Sodium Chloride (0.9 % Sodium Chloride Flush 3 Ml Syringe) 3 ml IVFLUSH QSHIFT [facility] Last Admin: 12/12/21 09:00 Dose: 3 ml Documented by: Vitamin D (Cholecalciferol (Vitamin D3) 25 Mcg Tablet) 25 mcg PO DAILY [facility] Last Admin: 12/12/21 08:59 Dose: 25 mcg Documented by: Home Medications Medication Instructions Recorded Confirmed Last Taken Type atorvastatin 20 mg tablet 20 mg PO QPM 01/04/21 12/11/21 Unknown History levothyroxine 75 mcg tablet 37.5 mcg PO BEDTIME 01/04/21 12/11/21 12/10/21 History sacubitril 49 mg-valsartan 51 mg 1 tab PO BID 01/04/21 12/11/21 12/10/21 History tablet (Entresto) amiodarone 100 mg tablet 1 tab PO DAILY 12/11/21 12/11/21 12/10/21 History aspirin 81 mg tablet,delayed 81 mg PO DAILY 12/11/21 12/11/21 12/10/21 History release cholecalciferol (vitamin D3) 25 25 mcg PO DAILY 12/11/21 12/11/21 12/10/21 History mcg (1,000 unit) tablet cyanocobalamin (vitamin B-12) 1,000 mcg PO DAILY 12/11/21 12/11/21 12/10/21 History 1,000 mcg tablet magnesium 250 mg tablet 500 mg PO DAILY 12/11/21 12/11/21 12/11/21 History metoprolol tartrate 25 mg tablet 25 mg PO BID 12/11/21 12/11/21 12/10/21 History omeprazole 40 mg capsule,delayed 1 cap PO DAILY 12/11/21 12/11/21 12/11/21 History release Physical Exam Vital Signs: Vital Signs: Last Vital Signs Temp 98.3 F 12/12/21 08:00 Pulse 83 12/12/21 09:32 Resp 18 12/12/21 08:00 BP 130/71 12/12/21 09:32 Pulse Ox 95 12/12/21 09:32 BMI result Body Mass Index 25.8 Const: General: comfortable and no acute distress Orientation/consciousness: patient oriented x3 HEENT: Other: Unremarkable Head: Yes normal to inspection Neck: Neck: Yes normal visual inspection Chest: Chest palpation & inspection: normal inspection of the chest Resp: Auscultation: clear to auscultation bilaterally Cardio: Palpation: normal PMI Heart sounds: S1 normal heart sound present, S2 normal heart sound present, no gallops, no murmurs and no rubs GI: Palpation (GI): Soft to palpation Back/Spine/Pelvis: Other: unremarkable Skin: General skin exam: no rashes or lesions noted Neuro: General: patient oriented x3 Extrem: General: Yes normal to inspection Psych: Mental Status: mental status grossly normal Objective Labs and Meds Result diagrams: 12/12/21 06:11 12/12/21 06:11 Lab results: Laboratory Results - last 24 hr 12/11/21 12/11/21 12/11/21 15:28 15:28 15:28 WBC 4.8 RBC 4.28 L Hgb 13.1 L Hct 39.3 L MCV 91.8 MCH 30.6 MCHC 33.3 RDW 13.5 Plt Count 133 L MPV 11.6 Immature Gran % (Auto) 0.2 Neut % (Auto) 70.0 Lymph % (Auto) 17.7 L [place] % (Auto) 9.8 Eos % (Auto) 1.3 Baso % (Auto) 1.0 Lymph # (Auto) 0.9 L [place] # (Auto) 0.5 Eos # (Auto) 0.1 Baso # (Auto) 0.1 Abs Immat Gran (auto) 0.01 Absolute Neuts (auto) 3.4 Absolute Nucleated RBC 0.000 Nucleated RBC % (auto) 0.0 PT INR Sodium 139 Potassium 4.3 Chloride 108 Carbon Dioxide 24 Anion Gap 11 L BUN 19 H Creatinine 1.53 H Estim Creat Clear Calc 37.7 Estimated GFR 44 Random Glucose 104 Calcium 9.0 Magnesium 2.0 Total Bilirubin 0.6 AST 22 ALT 17 Alkaline Phosphatase 68 Troponin I High Sens Total Protein 6.4 L Albumin 3.9 Urine Color Urine Appearance Urine pH Ur Specific [place] Urine Protein Urine Glucose (UA) Urine Ketones Urine Blood Urine Nitrite Ur Leukocyte Esterase COVID-19 (EVIN) Negative COVID-Fishin' Glue Com See Note 12/11/21 12/11/21 12/11/21 15:28 15:28 17:15 WBC RBC Hgb Hct MCV MCH MCHC RDW Plt Count MPV Immature Gran % (Auto) Neut % (Auto) Lymph % (Auto) [place] % (Auto) Eos % (Auto) Baso % (Auto) Lymph # (Auto) [place] # (Auto) Eos # (Auto) Baso # (Auto) Abs Immat Gran (auto) Absolute Neuts (auto) Absolute Nucleated RBC Nucleated RBC % (auto) PT 12.8 INR 1.1 Sodium Potassium Chloride Carbon Dioxide Anion Gap BUN Creatinine Estim Creat Clear Calc Estimated GFR Random Glucose Calcium Magnesium Total Bilirubin AST ALT Alkaline Phosphatase Troponin I High Sens 8.9 Total Protein Albumin Urine Color YELLOW Urine Appearance CLEAR Urine pH 6.0 Ur Specific [place] 1.015 Urine Protein NEG Urine Glucose (UA) NEG Urine Ketones NEG Urine Blood NEG Urine Nitrite NEG Ur Leukocyte Esterase NEG COVID-19 (EVIN) COVID-Fishin' Glue Com 12/11/21 12/11/21 12/12/21 18:37 18:37 06:11 WBC 5.5 RBC 4.47 L Hgb 13.5 L Hct 41.3 L MCV 92.4 MCH 30.2 MCHC 32.7 RDW 13.6 Plt Count 133 L MPV 11.2 Immature Gran % (Auto) 0.5 H Neut % (Auto) 68.9 Lymph % (Auto) 19.6 L [place] % (Auto) 8.8 Eos % (Auto) 1.3 Baso % (Auto) 0.9 Lymph # (Auto) 1.1 L [place] # (Auto) 0.5 Eos # (Auto) 0.1 Baso # (Auto) 0.1 Abs Immat Gran (auto) 0.03 Absolute Neuts (auto) 3.8 Absolute Nucleated RBC 0.000 Nucleated RBC % (auto) 0.0 PT INR Sodium 139 Potassium 4.6 Chloride 108 Carbon Dioxide 24 Anion Gap 12 BUN 18 H Creatinine 1.32 Estim Creat Clear Calc 43.7 Estimated GFR 52 Random Glucose 91 Calcium 8.7 Magnesium Total Bilirubin 0.7 AST 25 ALT 15 Alkaline Phosphatase 67 Troponin I High Sens 16.7 D Total Protein 6.3 L Albumin 3.7 Urine Color Urine Appearance Urine pH Ur Specific [place] Urine Protein Urine Glucose (UA) Urine Ketones Urine Blood Urine Nitrite Ur Leukocyte Esterase COVID-19 (EVIN) COVID-19 Clin Com 12/12/21 06:11 WBC RBC Hgb Hct MCV MCH MCHC RDW Plt Count MPV Immature Gran % (Auto) Neut % (Auto) Lymph % (Auto) [place] % (Auto) Eos % (Auto) Baso % (Auto) Lymph # (Auto) [place] # (Auto) Eos # (Auto) Baso # (Auto) Abs Immat Gran (auto) Absolute Neuts (auto) Absolute Nucleated RBC Nucleated RBC % (auto) PT INR Sodium 139 Potassium 4.6 Chloride 108 Carbon Dioxide 24 Anion Gap 12 BUN 15 Creatinine 1.16 Estim Creat Clear Calc 49.8 Estimated GFR > 60 Random Glucose 96 Calcium 9.2 Magnesium Total Bilirubin AST ALT Alkaline Phosphatase Troponin I High Sens Total Protein Albumin Urine Color Urine Appearance Urine pH Ur Specific [place] Urine Protein Urine Glucose (UA) Urine Ketones Urine Blood Urine Nitrite Ur Leukocyte Esterase COVID-19 (EVIN) COVID-19 Clin Com ECG Interpretation: EKG with sinus rhythm at 72/Min; left bundle-branch block pattern. Imaging Radiologist's impression: Impressions Abdomen/Pelvis CT 12/11/21 17:32 IMPRESSION: 1. No CT evidence for acute abnormality within the chest, abdomen or pelvis. 2. No central or segmental pulmonary emboli. 3. Colonic diverticulosis. This CT examination was performed using dose optimization techniques as appropriate, variously including the following: *Automated exposure control *Adjustment of mA and/or kV according to patient size (this includes techniques or standardized protocols for targeted exams where dose is matched to indication/reason for exam; i.e. extremities or head) *Use of iterative reconstruction technique Chest CTA 12/11/21 17:32 IMPRESSION: 1[address] No CT evidence for acute abnormality within the chest, abdomen or pelvis. 2. No central or segmental pulmonary emboli. 3. Colonic diverticulosis. This CT examination was performed using dose optimization techniques as appropriate, variously including the following: *Automated exposure control *Adjustment of mA and/or kV according to patient size (this includes techniques or standardized protocols for targeted exams where dose is matched to indication/reason for exam; i.e. extremities or head) *Use of iterative reconstruction technique Cervical Spine CT 12/11/21 17:39 IMPRESSION: No acute finding. Negative acute noncontrast CT of the brain. No acute fracture or dislocation of the cervical spine. No facial bone fracture is seen Face CT 12/11/21 17:39 IMPRESSION: No acute finding. Negative acute noncontrast CT of the brain. No acute fracture or dislocation of the cervical spine. No facial bone fracture is seen Head CT 12/11/21 17:39 IMPRESSION: No acute finding. Negative acute noncontrast CT of the brain. No acute fracture or dislocation of the cervical spine. No facial bone fracture is seen Assessment and Plan (1) Fall: Status: Acute (2) Chest pain: Status: Acute (3) Elevated troponin: Status: Acute (4) ICD (implantable cardioverter-defibrillator) in place: Status: Acute (5) Atherosclerotic cardiovascular disease: Status: Acute (6) Ischemic cardiomyopathy: Status: Acute Plan Troponins reviewed. Initial high sensitivity troponin was 8.9. Subsequent 16.7. Blood pressures were 151/72 mm Hg and as much as 169/85 upon arrival but currently 130/71 mm Hg. He has not had any recurrent chest pain since admission except for the initial episode. Very slight change in the 2nd troponin could be from demand secondary to a fall with known coronary artery disease as well as ischemic cardiomyopathy as well as elevated blood pressure. In the absence of any ongoing symptoms, can hold off further workup at this time. Home medications listed and reviewed include aspirin, beta-blockers, Entresto and statins with amiodarone. No changes with these. With regard to follow-up, he generally goes to [facility] but they want to think about switching doctors and if they decide, advised him to call us. Additionally, echocardiogram has already been set up as an outpatient for next week per . Discussed with in great detail at bedside and several minutes explained rationale for care and answered all questions to her satisfaction. She is agreeable with the above plan. Procedures Date of Service Date of Service: 12/12/21
--- NOTE | 2021-12-12 14:26 | PM.DS ---
DS: Providers Provider Date of Service: 12/12/21 Date of admission: 12/11/21 19:45 Date of discharge: 12/12/21 Primary care physician: Esperanza Newberry MD Consults: 12/11/21 19:45 Consult to Cardiology Routine Consulting Provider: Fab Miner Reason for consultation: chest pain DS: Diagnosis Discharge Diagnosis (1) Fall: Status: Acute (2) Chest pain: Status: Acute (3) Elevated troponin: Status: Acute (4) ICD (implantable cardioverter-defibrillator) in place: Status: Acute (5) Atherosclerotic cardiovascular disease: Status: Acute (6) Ischemic cardiomyopathy: Status: Acute DS: Summary Hospital Course Hospital Course: From admission H+P by Jorge Stevenson, 12/11/21: 81-year-old male with past medical history of hypertension, hyperlipidemia, CAD status post stent placement, AFib Not on Ac, history of AICD; presented to the hospital today with a chief complaint of chest pain.? Patient reported that he had a fall at home; fell on his face, hit his chest wall; followed by started pt felt shortness of breath; no associated lightheadedness dizziness or diaphoresis. Denies any fever chills cough.? Denies any recent travel or sick contacts.? At the time of my interview patient denies any chest pain.? Denies any numbness tingling or focal weakness.? Denies any loss of consciousness or seizure-like activity when he had a fall.? denies any chest pain. Review of all other systems is negative except mentioned above ER course: Per ER team patient CT angio chest no evidence of pulmonary embolism or rib fractures.? CT head showed no acute findings; EKG was nonischemic; patient received sublingual nitroglycerin by his when he had chest pain at home.? Patient troponin was 8.9 followed by 16.7.? Notified Dr. Miner from Cardiology who suggested admission to the hospital for observation. He was admitted to the hospitalist service for observation. Chest pain and dyspnea did not recur at all. Cardiology was consulted. Per their evaluation: Troponins reviewed.? Initial high sensitivity troponin was 8.9.? Subsequent 16.7. Blood pressures were 151/72 mm Hg and as much as 169/85 upon arrival but currently 130/71 mm Hg. He has not had any recurrent chest pain since admission except for the initial episode. Very slight change in the 2nd troponin could be from demand secondary to a fall with known coronary artery disease as well as ischemic cardiomyopathy as well as elevated blood pressure.? In the absence of any ongoing symptoms, can hold off further workup at this time. Home medications listed and reviewed include aspirin, beta-blockers, Entresto and statins with amiodarone.? No changes with these.? With regard to follow-up, he generally goes to [facility] but they want to think about switching doctors and if they decide, advised him to call us.? Additionally, echocardiogram has already been set up as an outpatient for next week per .? Discussed with in great detail at bedside and several minutes explained rationale for care and answered all questions to her satisfaction.? She is agreeable with the above plan. PT evaluation was done and he did not require rehabilitation or home PT. He was discharged home with return precautions and the above follow-up plan. Time Spent with Patient Time attestation: Total time spent providing and/or coordinating discharge services: Discharge coordination time: Less than 30 minutes Quality: Safe Use of Opioids Does Pt have an Active Cancer Diagnosis on the Problem List?: No Quality: Stroke Does the patient have a stroke diagnosis?: No Physical Exam Vital Signs: Vital Signs: Last Vital Signs Temp 98.3 F 12/12/21 08:00 Pulse 83 12/12/21 09:32 Resp 18 12/12/21 08:00 BP 130/71 12/12/21 09:32 Pulse Ox 95 12/12/21 09:32 BMI result Body Mass Index 25.8 Gen: in no acute distress HEENT: sclera anicteric, moist mucus membranes Neck: supple Lungs: clear to auscultation bilaterally Heart: regular rate and rhythm, no murmurs Abd: soft, non-tender, non-distended Ext: no edema Skin: warm/well-perfused Neuro: alert and oriented x3, no focal findings Psych: appropriate affect DS: Data Data Completed and Pending Completed studies during hospitalization [Text1]: Laboratory Results WBC 5.5 X10*3/uL (4.8-10.8) 12/12/21 06:11 RBC 4.47 X10*6/uL (4.60-5.80) L 12/12/21 06:11 Hgb 13.5 g/dl (14.0-18.0) L 12/12/21 06:11 Hct 41.3 % (42.0-52.0) L 12/12/21 06:11 MCV 92.4 fL (80.0-98.0) 12/12/21 06:11 MCH 30.2 pg (27.0-33.0) 12/12/21 06:11 MCHC 32.7 g/dl (31.0-36.0) 12/12/21 06:11 RDW 13.6 % (11.0-16.0) 12/12/21 06:11 Plt Count 133 X10*3/uL (160-400) L 12/12/21 06:11 MPV 11.2 fL (9.4-12.4) 12/12/21 06:11 Immature Gran % (Auto) 0.5 % (0.0-0.4) H 12/12/21 06:11 Neut % (Auto) 68.9 % (45-73) 12/12/21 06:11 Lymph % (Auto) 19.6 % (20-40) L 12/12/21 06:11 [place] % (Auto) 8.8 % (2-11) 12/12/21 06:11 Eos % (Auto) 1.3 % (0-4) 12/12/21 06:11 Baso % (Auto) 0.9 % (0-2) 12/12/21 06:11 Lymph # (Auto) 1.1 X10*3/uL (1.2-4.9) L 12/12/21 06:11 [place] # (Auto) 0.5 X10*3/uL (0.1-1.2) 12/12/21 06:11 Eos # (Auto) 0.1 X10*3/uL (0.0-0.4) 12/12/21 06:11 Baso # (Auto) 0.1 X10*3/uL (0.0-0.2) 12/12/21 06:11 Abs Immat Gran (auto) 0.03 X10*3/uL (0.00-0.03) 12/12/21 06:11 Absolute Neuts (auto) 3.8 x10*3/uL (2.0-8.3) 12/12/21 06:11 Absolute Nucleated RBC 0.000 X10*3/uL (0.0-0.012) 12/12/21 06:11 Nucleated RBC % (auto) 0.0 /100WBC (0.0-0.2) 12/12/21 06:11 PT 12.8 SEC (9.9-13.0) 12/11/21 15:28 INR 1.1 (0.9-1.1) 12/11/21 15:28 Sodium 139 mmol/L (135-145) 12/12/21 06:11 Potassium 4.6 mmol/L (3.3-5.1) 12/12/21 06:11 Chloride 108 mmol/L (96-108) 12/12/21 06:11 Carbon Dioxide 24 mmol/L (22-29) 12/12/21 06:11 Anion Gap 12 (12-20) 12/12/21 06:11 BUN 15 mg/dL (9-16) 12/12/21 06:11 Creatinine 1.16 mg/dL (0.5-1.4) 12/12/21 06:11 Estim Creat Clear Calc 49.8 12/12/21 06:11 Estimated GFR > 60 12/12/21 06:11 Random Glucose 96 mg/dL (60-115) 12/12/21 06:11 Calcium 9.2 mg/dL (8.4-10.2) 12/12/21 06:11 Magnesium 2.0 mg/dL (1.6-2.6) 12/11/21 15:28 Total Bilirubin 0.7 mg/dL (0.0-1.0) 12/11/21 18:37 AST 25 U/L (5-37) 12/11/21 18:37 ALT 15 U/L (0-40) 12/11/21 18:37 Alkaline Phosphatase 67 U/L (39-117) 12/11/21 18:37 Troponin I High Sens 16.7 ng/L (<3.5-35.0) D 12/11/21 18:37 Total Protein 6.3 g/dL (6.5-8.0) L 12/11/21 18:37 Albumin 3.7 g/dL (3.5-5.0) 12/11/21 18:37 Urine Color YELLOW 12/11/21 17:15 Urine Appearance CLEAR 12/11/21 17:15 Urine pH 6.0 (5.0-8.0) 12/11/21 17:15 Ur Specific [place] 1.015 (1.005-1.025) 12/11/21 17:15 Urine Protein NEG MG/DL (NEG-TRACE) 12/11/21 17:15 Urine Glucose (UA) NEG MG/DL (NEG) 12/11/21 17:15 Urine Ketones NEG MG/DL (NEG) 12/11/21 17:15 Urine Blood NEG (NEG) 12/11/21 17:15 Urine Nitrite NEG (NEG) 12/11/21 17:15 Ur Leukocyte Esterase NEG (NEG) 12/11/21 17:15 COVID-19 (EVIN) Negative (Negative) 12/11/21 15:28 COVID-19 Clin Com See Note 12/11/21 15:28 Impressions Abdomen/Pelvis CT 12/11/21 17:32 IMPRESSION: 1. No CT evidence for acute abnormality within the chest, abdomen or pelvis. 2. No central or segmental pulmonary emboli. 3. Colonic diverticulosis. This CT examination was performed using dose optimization techniques as appropriate, variously including the following: *Automated exposure control *Adjustment of mA and/or kV according to patient size (this includes techniques or standardized protocols for targeted exams where dose is matched to indication/reason for exam; i.e. extremities or head) *Use of iterative reconstruction technique Chest CTA 12/11/21 17:[address] IMPRESS[address]: 1[address] evidence for acute abnormality within the chest, abdomen or pelvis. 2. No central or segmental pulmonary emboli. 3. Colonic diverticulosis. This CT examination was performed using dose optimization techniques as appropriate, variously including the following: *Automated exposure control *Adjustment of mA and/or kV according to patient size (this includes techniques or standardized protocols for targeted exams where dose is matched to indication/reason for exam; i.e. extremities or head) *Use of iterative reconstruction technique Cervical Spine CT 12/11/21 17:39 IMPRESSION: No acute finding. Negative acute noncontrast CT of the brain. No acute fracture or dislocation of the cervical spine. No facial bone fracture is seen Face CT 12/11/21 17:39 IMPRESSION: No acute finding. Negative acute noncontrast CT of the brain. No acute fracture or dislocation of the cervical spine. No facial bone fracture is seen Head CT 12/11/21 17:39 IMPRESSION: No acute finding. Negative acute noncontrast CT of the brain. No acute fracture or dislocation of the cervical spine. No facial bone fracture is seen Discharge Plan Discharge Patient Disposition: Home, Self-Care Discharge Diagnosis: fall, elevated troponin Referrals: Esperanza Newberry MD [Primary Care Provider] - 1 Week Discharge Medications: Continued atorvastatin 20 mg Tablet 20 mg PO QPM 0RF levothyroxine 75 mcg Tablet 37.5 mcg PO BEDTIME 0RF Entresto 49-51 mg Tablet 1 tab PO BID 0RF omeprazole 40 mg capsule,delayed release(DR/EC) 1 cap PO DAILY 0RF cyanocobalamin (vitamin B-12) 1,000 mcg Tablet 1,000 mcg PO DAILY 0RF aspirin 81 mg Tablet,Delayed Release (Dr/Ec) 81 mg PO DAILY 0RF magnesium 250 mg Tablet 500 mg PO DAILY 0RF amiodarone 100 mg tablet 1 tab PO DAILY 0RF cholecalciferol (vitamin D3) 25 mcg (1,000 unit) Tablet 25 mcg PO DAILY 0RF metoprolol tartrate 25 mg tablet 25 mg PO BID 0RF Protocol: Hold for SBP/HR < HOLD for SBP < : 90 HOLD for HR < : 60 Discharge Orders: Discharge Order (Routine); Ordered 12/12/21 Ordered By: Harsh Burciaga Diet: advance to usual diet Activity on Discharge: As tolerated Stand Alone Forms: Patient Portal Discharge page Care Plan Goals: fall prevention heart health Health Concerns: fall very low-grade troponin elevation Plan of Treatment: take acetaminophen as needed for musculoskeletal pain return to hospital if chest pain recurs follow up with your primary doctor in 1 week as well as your service worker in 1-2 weeks if you wish to switch to [facility], please call for appointment: [facility] [phone] [place] [address], [address] [place] [address] Assessment: See Discharge Summary Patient Instructions: Fall Prevention for Older Adults (ED), Fall Prevention (ED)
[2021-12-12 14:37] VITALS: BP 122/67; PULSE 75; RESP 14; TEMP 36.9; O2SAT 95
--- NOTE | 2021-12-12 15:33 | MHC.CM.PN ---
PT DISCHARGED PRIOR TO BEING SEEN BY HOME WITH NO SERVICES
== END 2021-12-12 15:08 | disposition home or self-care (01) ==
LOC: HO.ED 19:31 → HO.EDOVER 20:27
PROVIDERS: Physician Assistant; Admitting Provider Hospitalist; Emergency Provider Emergency Medicine; PCP Internal Medicine; Visit Provider Family Medicine
DX: R07.9 Chest pain, unspecified (principal); R77.8 Other specified abnormalities of plasma proteins; I25.10 Atherosclerotic heart disease of native coronary artery without angina pectoris; I10 Essential (primary) hypertension; I25.5 Ischemic cardiomyopathy; I25.2 Old myocardial infarction; I44.7 Left bundle-branch block, unspecified; I47.1 Supraventricular tachycardia; I48.91 Unspecified atrial fibrillation; E03.9 Hypothyroidism, unspecified; R10.9 Unspecified abdominal pain; K57.30 Diverticulosis of large intestine without perforation or abscess without bleeding; R06.02 Shortness of breath; E78.5 Hyperlipidemia, unspecified; S09.93XA Unspecified injury of face, initial encounter; S29.9XXA Unspecified injury of thorax, initial encounter; W18.09XA Striking against other object with subsequent fall, initial encounter; Y93.01 Activity, walking, marching and hiking; Y92.009 Unspecified place in unspecified non-institutional (private) residence as the place of occurrence of the external cause; Y99.8 Other external cause status; Z87.891 Personal history of nicotine dependence; Z20.822 Contact with and (suspected) exposure to COVID-19; Z95.5 Presence of coronary angioplasty implant and graft; Z95.810 Presence of automatic (implantable) cardiac defibrillator; Z88.6 Allergy status to analgesic agent; Z88.1 Allergy status to other antibiotic agents; Z88.8 Allergy status to other drugs, medicaments and biological substances; Z79.899 Other long term (current) drug therapy
CPT/HCPCS: 36415; 70450; 70486; 71275; 72125; 74177; 80048; 80053; 81003; 83735; 84484; 85025; 85610; 87635; 93005; 96360; 96372; 97162; 99219; 99285; 99291; Q9967

== ENCOUNTER 2023-12-27 07:33 | Emergency (ER) | payer MEDICARE, SELFPAY ==
--- NOTE | ~2023-12-27 | XR_ITS ---
EXAMINATION: XR CHEST CLINICAL INFORMATION: Cough COMPARISON: CT angiogram chest 12/11/2021 TECHNIQUE: 2 views of the chest were obtained. FINDINGS: There is an ill-defined patchy density seen in the right mid lung (see villalobos image). In retrospect, some scarring or atelectasis can be seen on the 12/11/2021 CT scan in the same location (see villalobos images). No new focal consolidation is seen although comparison of the plain film and CT modality is less than optimal. There is mild cardiac enlargement. A left chest wall dual-lead pacemaker is present. There is no evidence of CHF. No pleural effusions. Severe degenerative changes are present in the right shoulder XR/XR chest 2V IMPRESSION: 1. No acute intrathoracic disease. 2. Patchy density right mid lung is probably scarring or atelectasis. If there is clinical concern, a repeat CT scan could always be performed.
--- NOTE | 2023-12-27 07:42 | ECG_ITS ---
Test Reason : cough Blood Pressure : / mmHG Vent. Rate : 080 BPM Atrial Rate : 088 BPM P-R Int : 000 ms QRS Dur : 228 ms QT Int : 512 ms P-R-T Axes : 000 -72 096 degrees QTc Int : 590 ms Ventricular-paced rhythm with premature ventricular or aberrantly conducted complexes Abnormal ECG When compared with ECG of 11-DEC-2021 17:13, Electronic ventricular pacemaker has replaced Sinus rhythm Referred By: Kel Tapia Electronically Signed By:ALBERTINA RHODES MD
--- NOTE | 2023-12-27 07:42 | ED.URI ---
HPI - URI/Sore Throat General Chief Complaint: Upper Respiratory Symptoms Stated Complaint: COUGH X5 DAYS,FLU LIKE SX PER EMS Time Seen by Provider: 12/27/23 07:38 Source: patient Mode of arrival: EMS Limitations: no limitations History of Present Illness HPI Narrative: THIS IS AN 83 YEARS OLD MALE BROUGHT IN BY AMBULANCE WITH A CHIEF COMPLAINT OF COUGH AND CONGESTION SINCE WEDNESDAY (5 DAYS AGO) DENIES ANY FEVER CHILLS VOMITING DIARRHEA CHEST PAIN. HE HAS MULTIPLE MEDICAL PROBLEMS WHICH INCLUDE HISTORY OF PACER DEFIBRILLATOR, BOWEL RESECTION MD elicited complaint: cough Onset (ago): day(s) (5) Consistency: constant Severity: moderate Description of mucous: watery Able to tolerate fluids by mouth: Yes Exacerbating factors: nothing Relieving factors: nothing Associated symptoms: denies other symptoms Related Data Home Medications ?Medication ?Instructions ?Recorded ?Confirmed atorvastatin 20 mg tablet 20 mg PO QPM 01/04/21 01/08/22 levothyroxine 75 mcg tablet 37.5 mcg PO BEDTIME 01/04/21 01/08/22 sacubitril 49 mg-valsartan 51 mg 1 tab PO BID 01/04/21 01/08/22 tablet (Entresto) amiodarone 100 mg tablet 1 tab PO DAILY 12/11/21 01/08/22 aspirin 81 mg tablet,delayed 81 mg PO DAILY 12/11/21 01/08/22 release cholecalciferol (vitamin D3) 25 25 mcg PO DAILY 12/11/21 01/08/22 mcg (1,000 unit) tablet cyanocobalamin (vitamin B-12) 1,000 mcg PO DAILY 12/11/21 01/08/22 1,000 mcg tablet magnesium 250 mg tablet 500 mg PO DAILY 12/11/21 01/08/22 metoprolol tartrate 25 mg tablet 25 mg PO BID 12/11/21 01/08/22 omeprazole 40 mg capsule,delayed 1 cap PO DAILY 12/11/21 01/08/22 release Previous Rx's ?Medication ?Instructions ?Recorded prednisone 50 mg tablet 50 mg PO DAILY 5 days #5 tabs 01/08/22 benzonatate 100 mg capsule 100 mg PO TID PRN cough #14 caps 12/27/23 doxycycline monohydrate 100 mg 100 mg PO BID #14 caps 12/27/23 capsule (Monodox) Allergies Allergy/AdvReac Type Severity Reaction Status Date / Time acetaminophen [From PERCOCET] Allergy Unknown HIVES Verified 12/27/23 07:49 aspirin [From PERCODAN] Allergy Unknown HIVES Verified 12/27/23 07:49 cefotetan [From CEFOTAN] Allergy Unknown HIVES Verified 12/27/23 07:49 oxycodone [From PERCODAN] Allergy Unknown HIVES Verified 12/27/23 07:49 Review of Systems Constitutional: Constitutional: Reports no additional constitutional complaints ENT: Reports system reviewed and no additional complaints, except as documented Cardiovascular: Cardiovascular: Reports no additional cardiovascular complaints Respiratory: Respiratory: Reports as per [facility] Past Medical History Attestation statement: The following information was validated with the patient. Medical History Atherosclerotic cardiovascular disease Chest pain Elevated troponin Abrasion Fall Prostate cancer ICD (implantable cardioverter-defibrillator) in place Left bundle branch block Ischemic cardiomyopathy Hypothyroidism SVT (supraventricular tachycardia) CHF (congestive heart failure) Pacemaker Coronary artery disease Afib Surgical History History of bowel resection Hx of appendectomy Stented coronary artery Family History Family History Mother Diabetes Social History Social History Alcohol intake: current Alcohol intake frequency: holidays/special occasions only Alcohol type: hard liquor Patient Tobacco Use Status: Former Tobacco user Smoked in Last 30 Days: No Use of substances other than those prescribed or required for medical reasons: No Advance Directives: No Advance Directives Information Provided: No service: No Current occupational status: retired Physical Exam Vital Signs: Vital Signs: Last Vital Signs Temp 98.3 F 12/27/23 14:21 Pulse 88 12/27/23 14:21 Resp 18 12/27/23 14:21 BP 114/54 L 12/27/23 14:21 Pulse Ox 100 12/27/23 14:21 O2 Del Method Room Air 12/27/23 14:21 BMI result Body Mass Index 23.0 PATIENT LOOKS WELL NOT ACUTE DISTRESS COMFORTABLE IN THE STRETCHER SPEAKING FULL SENTENCES Const: General: cooperative Nutritional Appearance: well nourished Orientation/consciousness: patient oriented x3 Limitations: no limitations HEENT: Head: Yes normal to inspection General nose exam: Normal external nose present Face and sinus: Yes normal facial exam Throat: Yes posterior oropharynx normal Neck: Neck: Yes normal visual inspection Chest: Chest palpation & inspection: normal inspection of the chest Resp: Effort & Inspection: normal respiratory effort Auscultation: rhonchi Cardio: Jugular venous distension: no JVD Rate: regular rate Rhythm: regular rhythm GI: Inspection: Yes normal to inspection Palpation (GI): Soft to palpation Skin: General skin exam: no rashes or lesions noted and elasticity normal Lesions: no lesions Rashes: no rashes Neuro: General: patient oriented x3 Course Reevaluation(s) Reevaluation #1: pt was interrogated by [employer] alhaji ,no ventricular tachycardia ,tropi#1 negative Time: 12:40 Reevaluation #2: delta tropi flat Time: 13:24 Reevaluation #3: Remained stable vital signs team all good oxygenation I think at this point he can be discharged home is comfortable with the plan of care Time: 13:54 Medications Administered Discontinued Medications Generic Name Dose Route Start Last Admin Trade Name Freq PRN Reason Stop Dose Admin Guaifenesin 10 ml 12/27/23 12:40 12/27/23 13:38 Guaifenesin 200 Mg/10 Ml 10 Ml Liquid PO 12/27/23 12:41 10 ml ONCE ONE Administration Medical Decision Making Medical Decision Making [facility] Narrative: Patient presented with cough for about 5 days history of pacer defibrillator chest wall pain with cough we will get chest x-ray labs and reassess Differential Diagnosis Differential Diagnoses: The differential diagnosis associated with the presentation includes Pneumonia/congestive heart failure Admission/Observation Consideration of admission/observation: Escalation of care including admission/observation considered Consult Healthcare Provider Spoke with the [employer] defibrillator customer service technician Lab Data [facility] Lab Attestation statement: I reviewed the patient's lab results. 12/27/23 08:34 12/27/23 08:34 Labs: Lab Results 12/27/23 12/27/23 12/27/23 Range/Units 08:34 12:11 13:02 WBC 7.9 (4.8-10.8) X10*3/uL RBC 4.06 L (4.60-5.80) X10*6/uL Hgb 12.3 L (14.0-18.0) g/dl Hct 36.8 L (42.0-52.0) % MCV 90.6 (80.0-98.0) fL MCH 30.3 (27.0-33.0) pg MCHC 33.4 (31.0-36.0) g/dl RDW 13.6 (11.0-16.0) % Plt Count 110 L (160-400) X10*3/uL MPV 12.0 (9.4-12.4) fL Immature Gran % (Auto) 0.3 (0.0-0.4) % Neut % (Auto) 78.6 H (45-73) % Lymph % (Auto) 5.8 L (20-40) % [place] % (Auto) 14.0 H (2-11) % Eos % (Auto) 0.8 (0-4) % Baso % (Auto) 0.5 (0-2) % Lymph # (Auto) 0.5 L (1.2-4.9) X10*3/uL [place] # (Auto) 1.1 (0.1-1.2) X10*3/uL Eos # (Auto) 0.1 (0.0-0.4) X10*3/uL Baso # (Auto) 0.0 (0.0-0.2) X10*3/uL Abs Immat Gran (auto) 0.02 (0.00-0.03) X10*3/uL Absolute Neuts (auto) 6.2 (2.0-8.3) x10*3/uL Absolute Nucleated RBC 0.000 (0.0-0.012) X10*3/uL Nucleated RBC % (auto) 0.0 (0.0-0.2) /100WBC Sodium 139 (135-145) mmol/L Potassium 3.6 (3.3-5.1) mmol/L Chloride 107 (96-108) mmol/L Carbon Dioxide 22 (22-29) mmol/L Anion Gap 14 (12-20) BUN 17 H (9-16) mg/dL Creatinine 0.98 (0.5-1.4) mg/dL Estim Creat Clear Calc 56.5 Estimated GFR > 60 Random Glucose 121 H (60-115) mg/dL Calcium 9.2 (8.4-10.2) mg/dL Total Bilirubin 1.7 H (0.0-1.0) mg/dL AST 25 (5-37) U/L ALT 25 (0-40) U/L Alkaline Phosphatase 66 (39-117) U/L Troponin I High Sens 13.5 13.1 (<3.5-35.0) ng/L Total Protein 6.4 L (6.5-8.0) g/dL Albumin 3.6 (3.5-5.0) g/dL Urine Color Dark Yellow Urine Appearance Clear Urine pH 5.5 (5.0-9.0) Ur Specific [place] >= 1.030 H (1.005-1.025) Urine Protein 30 (1+) H (Neg-Trace) mg/dL Urine Glucose (UA) Negative (Negative) mg/dL Urine Ketones Trace (Negative) mg/dL Urine Blood Negative (Negative) Urine Nitrite Negative (Negative) Ur Leukocyte Esterase Trace H (Negative) Urine RBC 0-2 (0-2) /HPF Urine WBC 0-5 (0-5) /HPF Ur Squamous Epith Cells 0-2 (0-2) /HPF Urine Bacteria None Seen (None Seen) Hyaline Casts 0-2 (0-2) /LPF Influenza Type A (PCR) NEGATIVE (Negative) Influenza Type B (PCR) NEGATIVE (Negative) RSV RNA Qual (PCR) NEGATIVE (Negative) SARS-CoV-2 RNA (RT-PCR) NEGATIVE (Negative) Independent Interpretation I performed an independent interpretation of an: EKG (Paced rhythm ventricular rate about 80) and Plain X-Ray Interpretation: EKG shows paced rhythm ventricular rate 80 Chest x-ray personally reviewed by me interpreted as normal Radiology Impression Discussion of test interpretation with radiology: I discussed test interpretation with the radiologist and I have reviewed the radiologist's reading. Radiologist Impression: 2 views of the chest were obtained. FINDINGS: There is an ill-defined patchy density seen in the right mid lung (see villalobos image). In retrospect, some scarring or atelectasis can be seen on the 12/11/2021 CT scan in the same location (see villalobos images). No new focal consolidation is seen although comparison of the plain film and CT modality is less than optimal. There is mild cardiac enlargement. A left chest wall dual-lead pacemaker is present. There is no evidence of CHF. No pleural effusions. Severe degenerative changes are present in the right shoulder XR/XR chest 2V IMPRESSION: 1. No acute intrathoracic disease. 2. Patchy density right mid lung is probably scarring or atelectasis. If there is clinical concern, a repeat CT scan could always be performed. Independent Historian Clinical information obtained from an independent historian. History obtained from or confirmed by: Spouse Spoke at length with the External Record Review External record reviewed: Inpatient record Prescription Management I considered prescription management with: Antibiotic Chronic Conditions CHF coronary artery disease Discharge Plan Discharge Clinical Impression: Bronchitis Patient Disposition: Home, Self-Care Instructions: Acute Bronchitis (ED) Additional Instructions: Please follow-up with your primary care physician return to the emergency room if you worse any concern we sent a prescription for you to the pharmacy for doxycycline a cough tablets Prescriptions: New doxycycline monohydrate [Monodox] 100 mg capsule 100 mg PO BID Qty: 14 0RF benzonatate 100 mg capsule 100 mg PO TID PRN (Reason: cough) Qty: 14 0RF No Action atorvastatin 20 mg Tablet 20 mg PO QPM levothyroxine 75 mcg Tablet 37.5 mcg PO BEDTIME Entresto 49-51 mg Tablet 1 tab PO BID omeprazole 40 mg capsule,delayed release(DR/EC) 1 cap PO DAILY cyanocobalamin (vitamin B-12) 1,000 mcg Tablet 1,000 mcg PO DAILY aspirin 81 mg Tablet,Delayed Release (Dr/Ec) 81 mg PO DAILY magnesium 250 mg Tablet 500 mg PO DAILY amiodarone 100 mg tablet 1 tab PO DAILY cholecalciferol (vitamin D3) 25 mcg (1,000 unit) Tablet 25 mcg PO DAILY metoprolol tartrate 25 mg tablet 25 mg PO BID Protocol: Hold for SBP/HR < HOLD for SBP < : 90 HOLD for HR < : 60 prednisone 50 mg tablet 50 mg PO DAILY 5 Days Qty: 5 0RF Referrals: Esperanza Newberry MD [Primary Care Provider] - 2 days Interventions: ED Discharge Assessment Last Done: 12/27/23 14:21 Discharge Date/Time: 12/27/23 14:24 Print Language: Japanese
[2023-12-27 07:47] VITALS: BP 115/56; BP 118/63; PULSE 65; PULSE 80; RESP 20; TEMP 36.5; O2SAT 94; O2SAT 96; BMI 23.0
--- OUTSIDE RECORDS SUMMARY | 2023-12-27 08:06 | XMS_ITS | Continuity of Care Document ---
Author Organization [facility] ter Address [address] [place] [address]- Care Team Providers Care Mill Platform Supervisor Name Role Phone Esperanza Newberry MD Primary Care Physician [phone] Encounter [facility] Date(s): 05/16/20 - 09/23/[address] [address]- Encounter Diagnosis Non-ST elevation (NSTEMI) myocardial infarction(Final) - Discharge Disposition: A-D/C Home Attending Physician: Riley Moreira MD Admitting Physician: Riley Moreira MD Referring Physician: Riley Moreira MD Allergies, Adverse Reactions, Alerts Substance Reaction Severity Status Ceftin rash Active Percodan Active statins Myalgia Active Tylox Active Immunizations Given and Recorded Vaccine Date Status Refusal Reason Influenza Virus Vaccine (oldterm) 05/23/19 Recorde d influenza virus vaccine, inactivated 1 05/05/17 Gi rudy influenza virus vaccine, inactivated 2 06/19/16 Re corded influenza virus vaccine, inactivated 06/15/14 Give n influenza virus vaccine, inactivated 05/26/13 Juan rded influenza virus vaccine, inactivated 08/26/11 Give n influenza virus vaccine, inactivated 09/02/10 Give n influenza virus vaccine, inactivated 3 08/23/08 Gi rudy tetanus/diphtheria/pertussis, acel(Tdap) 04/25/17 Recorded Influenza Vaccine (oldterm) 4 06/04/15 Recorded Influenza Vaccine (oldterm) 06/16/09 Given pneumococcal 13-valent vaccine 04/04/15 Given Fluvirin (oldterm) 5 06/15/14 Recorded FluLaval (oldterm) 08/26/12 Given Zostavax (oldterm) 6 12/27/09 Given influ virus vac, H1N1, inactive(oldterm) 06/16/09 Given Pneumococcal Vaccine (oldterm) 07/16/06 Given tetanus-diphtheria toxoids (Td) 7 09/29/02 Given 1Travel Destination: [facility] [id number] Newberry [facility] 3Admin Note: josiah butler [facility]: [facility] 6Admin Note: done at [facility] 7Admin Note: manufacture [employer] Medications aspirin 81 mg oral delayed release tablet 81 mg, 1, tablet, By Mouth, Daily, # 90 tablet, Refills 3, Tot. Refills 3, Maintenance, 04/11/20 11:28:00 EDT, Route to Pharmacy Electronically, [facility], 178, cm, 04/11/20 7:52:00 EDT, Height, 82.7, kg, 04/10/20 15:42:00 EDT, Dry Weight Start Date: 04/11/20 Stop Date: 04/01/22 Status: Ordered atorvastatin 40 mg oral tablet 0.5 tablet = 20 mg, By Mouth, Daily at bedtime, 0 Refills, Maintenance Start Date: 12/13/15 Status: Ordered clopidogrel 75 mg oral tablet 75 mg, 1, tablet, By Mouth, Daily, # 90 tablet, Refills 0, Maintenance, 08/28/20 11:35:00 EST, Partial fill upon patient request if the prescription is for a schedule II opioid drug. Start Date: 08/28/20 Status: Ordered isosorbide mononitrate 30 mg oral tablet, extended release 1 tablet = 30 mg, By Mouth, Daily, # 30 tablet, 3 Refills, Maintenance, 04/11/20 11:27:00 EDT, ER Tablet, [facility], 178, cm, 04/11/20 7:52:00 EDT, Height, 82.7, kg, 04/10/20 15:42:00 EDT, Dry Weight Start Date: 04/11/20 Status: Ordered metoprolol 50 mg oral tablet 50 mg, 1, tablet, By Mouth, 2 times a day, # 180 tablet, Refills 0, Tot. Refills 0, Maintenance, 04/11/20 11:26:00 EDT, Route to Pharmacy Electronically, [facility], 178, cm, 04/11/20 7:52:00 EDT, Height, 82.7, kg, 04/10/20 15:42:00 EDT,... 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/06 Active Hearing loss(Confirmed) Active History of basal cell carcinoma(Confirmed) 4 Active History of prostate cancer(C onfirmed) 5 Active Hyperlipidemia(Confirmed) Active Hypothyroid(Confirmed) 07/19/07 Active Impaired fasting glucose(Confirmed) 02/21/08 Active Impaired glucose tolerance(Confirmed) 02/21/08 Active Mild memory disturbance(Confirmed) Active Sleep apnea (central)(Confirmed) 01/16/08 Active Thrombocytopenia(Confirmed) Active Tremor(Confirmed) Active White coat hypertension(Confirmed) Active 1right hip knee and shoulder 2coronary angiography, left heart catheterization, left ventriculography, single vessel drug-coated stent placement to the ostium of the second obtuse marginal branch of the circumflex; Dr. Strong 3Dr. Emeka 4L cheek Dr. Galvan 5s/p radical prostatectomy Dr. Pederson Social History Social History Type Response Smoking Status Former smoker; Start ed at age: 12; Stopped at age: 56; entered on: 01/03/15 Sex
--- OUTSIDE RECORDS SUMMARY | 2023-12-27 08:06 | XMS_ITS | Continuity of Care Document ---
Author Organization [facility] ter Address [address] [place] [address]- Care Team Providers Care Cd Technician Name Role Phone Rohith ASHER, Esperanza Nettles Primary Care Physician [phone] [facility] Date(s): 04/09/20 - 04/11/[address] [address]- [facility] Discharge Disposition: A-D/C Home Attending Physician: Clara Mcclain MD Admitting Physician: Oliverio Kennedy MD Referring Physician: Not on Staff, Referring MD Allergies, Adverse Reactions, Alerts Substance Reaction Severity Status Ceftin rash Active Percodan Active Tylox Active statins Myalgia Active Immunizations Given and Recorded Vaccine Date [...] H1N1, inactive(oldterm) 06/16/09 Given Pneumococcal Vaccine (oldterm) 12/1/06 Given tetanus-diphtheria toxoids (Td) 7 09/29/02 Given 1Travel Destination: [facility]NOTE 3] [id number] Newberry [facility] 3Admin Note: josiah sanofi pasteur 4[facility]: [facility] 6Admin Note: done at [facility] 7Admin Note: manufacture [employer] Medications aspirin 81 mg oral delayed release tablet 81 mg, 1, tablet, By Mouth, Daily, # 90 tablet, Refills 3, Tot. Refills 3, Maintenance, 04/11/20 11:28:00 EDT, Route to Pharmacy Electronically, [facility], 178, cm, 04/11/20 7:52:00 EDT, Height, 82.7, kg, 04/10/20 15:42:00 EDT, Dry Weight Start Date: 04/11/20 Stop Date: 04/01/22 Status: Ordered atorvastatin 40 mg oral tablet 0.5 tablet = 20 mg, By Mouth, Daily at bedtime, 0 Refills, Maintenance Start Date: 12/13/15 Status: Ordered isosorbide mononitrate 30 mg oral tablet, extended release 1 tablet = 30 mg, By Mouth, Daily, # 30 tablet, 3 Refills, Maintenance, 04/11/20 11:27:00 EDT, ER Tablet, [facility], 178, cm, 04/11/20 7:52:00 EDT, Height, 82.7, kg, 04/10/20 15:42:00 EDT, Dry Weight Start Date: 04/11/20 Status: Ordered metoprolol 50 mg oral tablet 50 mg, 1, tablet, By Mouth, 2 times a day, # 180 tablet, Refills 0, Tot. Refills 0, Maintenance, 04/11/20 11:26:00 EDT, Route to Pharmacy Electronically, [facility], 178, cm, 04/11/20 7:52:00 EDT, Height, 82.7, kg, 04/10/20 15:42:00 EDT,... Start Date: 04/11/20 Status: Ordered ticagrelor 90 mg oral tablet 1 tablet = 90 mg, By Mouth, 2 times a day, # 60 tablet, 3 Refills, Maintenance, 04/11/20 11:27:00 EDT, Tablet, [facility], 178, cm, 04/11/20 7:52:00 EDT, Height, 82.7, kg, 04/10/20 15:42:00 EDT, Dry Weight Start Date: 04/11/20 Status: Ordered Problem List [...] Dr. Galvan 5s/p radical prostatectomy Dr. Pederson Results Radiology Reports * Exam Date Time Procedure Performing Provider Status 04/08/20 11:54 PM Chest 2 Views Frontal and Lat Nicci Garcia; Auth (Verified) Notes: (Chest 2 Views Frontal and Lat) Reason For Exam: Angina RESULT: Chest 2 Views Frontal and Lat Chest 2 Views Frontal and Lat Hx of Present Illness: Pt reporting intermittent CP x 1 week, resolved with nitroglycerin and ASA Reason: Angina; Clinical Question(s): CHF COMPARISON: Chest x-ray 03/08/2017 FINDINGS: LINES AND TUBES: Dual lead AICD/pacemaker in place. LUNGS AND PLEURA: The lungs are hyperinflated but otherwise are clear. No pleural effusion. No pneumothorax. HEART, MEDIASTINUM AND LIANE: Heart is normal in size. Normal mediastinal and hilar contour. BONES AND SOFT TISSUES: No acute abnormality. IMPRESSION: No acute abnormality. I have personally reviewed the images and I agree with this report. WSN: [id number] Ordering Physician: Emilia Garsia Dictated By: Jorge Luis Campos DO Dictated Date/Time: 04/09/20 8:29 am Reviewed By: Benedicto Coelho MD Signed By: Benedicto Coelho MD Signed Date/Time: 04/09/20 8:34 am Transcribed By: DAYANA Transcribed Date/Time: 04/09/20 7:53 am Vital Signs Most recent to oldest [Reference Range]: 1 2 3 Height 178 cm (04/11/20 7:52 AM) 178 cm (04/11/20 3:30 AM) 178 cm (04/10/20 8:26 PM) Weight 82.9 kg (04/11/20 3:30 AM) 82.7 kg (04/09/20 11:42 AM) 84 kg (04/09/20 2:38 AM) Oxygen Saturation [94-100 %] 94 % (04/11/20 7:52 AM) 93 % *L* (04/11/20 3:30 AM) 97 % (04/10/20 8:26 PM) Pulse Rate [55-90 bpm] 64 bpm (04/11/20 8:27 AM) 64 bpm (04/11/20 7:52 AM) 72 bpm (04/11/20 3:30 AM) Body Mass Index [18.5-24.99] 26.16 *H* (04/11/20 3:30 AM) 26.1 *H* (04/09/20 11:42 AM) 26.51 *H* (04/09/20 2:38 AM) Blood Pressure [90-138/55-84 mm Hg] 112/58mm Hg (04/11/20 8:27 AM) 112/58mm Hg (04/11/20 8:27 AM) 112/58mm Hg (04/11/20 7:52 AM) Respiratory Rate [16-30 br/min] 19 br/min (04/11/20 7:52 AM) 18 br/min (04/11/20 3:30 AM) 18 br/min (04/10/20 8:26 PM) Temperature [96.8-100.4 DegF] 97.4 DegF (04/11/20 7:52 AM) 98 DegF (04/11/20 3:30 AM) 98.0 DegF (04/10/20 8:26 PM) Mode of Delivery (Oxygen) Room air (04/11/20 7:52 AM) Room air (04/11/20 3:30 AM) Room air (04/10/20 8:26 PM) Blood pressure sites Arm, right (04/11/20 7:52 AM) Arm, right (04/11/20 3:30 AM) Arm, right (04/10/20 8:26 PM) Temperature Route Oral (04/11/20 7:52 AM) Oral (04/11/20 3:30 AM) Oral (04/10/20 8:26 PM) Dry Weight 82.7 kg (04/09/20 11:42 AM) 84 kg (04/09/20 2:38 AM) Weight Obtained Via Bed scale (04/11/20 3:30 AM) Bed scale (04/09/20 2:22 AM) Mobility assistance Partial assistance (04/09/20 4:00 PM) Social History Social History Type Response Smoking Status Former smoker; Start ed at age: 12; Stopped at age: 56; entered on: 01/03/15 Sex
--- OUTSIDE RECORDS SUMMARY | 2023-12-27 08:06 | XMS_ITS | Continuity of Care Document ---
Author Organization [facility] Address [address] [place] [address]- Care Team Providers Care Customer Manager Name Role Phone Esperanza Newberry MD Primary Care Physician Encounter [facility] Date(s): 01/21/23 - 02/20/23 [facility] [address] [place], [place] [address] Attending Physician: Admtr, Ar8 Admitting Physician: Admtr, Ar8 Referring Physician: Admtr, Ar8 Allergies, Adverse Reactions, Alerts Substance Reaction Severity Status Ceftin rash Resolved Percocet rash Active Percodan rash Active Tylox rash Active statins Myalgia Active Immunizations Given and Recorded Vaccine Date Status Refusal Reason SARS-CoV-2 (COVID-19) mRNA BNT-162b2 vac 12/04/21 Recorded SARS-CoV-2 (COVID-19) mRNA BNT-162b2 vac 05/08/21 Recorded SARS-CoV-2 (COVID-19) mRNA BNT-162b2 vac 10/11/20 Given SARS-CoV-2 (COVID-19) mRNA BNT-162b2 vac 09/20/20 Recorded influenza virus vaccine, inactivated 06/16/21 Juan rded influenza virus vaccine, inactivated 04/17/20 Juan rded influenza virus vaccine, inactivated 1 05/05/17 Gi rudy influenza virus vaccine, inactivated 2 06/19/16 Re corded influenza virus vaccine, inactivated 06/15/14 Give n influenza virus vaccine, inactivated 05/26/13 Juan rded influenza virus vaccine, inactivated 08/26/11 Give n influenza virus vaccine, inactivated 09/02/10 Give n influenza virus vaccine, inactivated 3 08/23/08 Gi rudy Influenza Virus Vaccine (oldterm) 05/23/19 Recorde d tetanus/diphtheria/pertussis, acel(Tdap) 04/25/17 Recorded Influenza Vaccine (oldterm) 4 06/04/15 Recorded Influenza Vaccine (oldterm) 06/16/09 Given pneumococcal 13-valent vaccine 04/04/15 Given Fluvirin (oldterm) 5 06/15/14 Recorded FluLaval (oldterm) 08/26/12 Given Zostavax (oldterm) 6 12/27/09 Given influ virus vac, H1N1, inactive(oldterm) 06/16/09 Given Pneumococcal Vaccine (oldterm) 07/16/06 Given tetanus-diphtheria toxoids (Td) 7 09/29/02 Given 1Travel Destination: [facility] [id number] Newberry [facility] 3Admin Note: josiah sanofi pasteur 4[facility]: [facility] 6Admin Note: done at pharmacy 7Admin Note: manufacture [employer] Medications aspirin 81 mg oral delayed release tablet 81 mg, 1, tablet, By Mouth, Daily, # 90 tablet, Refills 3, Tot. Refills 3, Maintenance, 04/11/20 11:28:00 EDT, Route to Pharmacy Electronically, [facility], 178, cm, 04/11/20 7:52:00 EDT, Height, 82.7, kg, 04/10/20 15:42:00 EDT, Dry Weight Start Date: 04/11/20 Stop Date: 04/01/22 Status: Ordered atorvastatin 40 mg oral tablet 0.5 tablet = 20 mg, By Mouth, Daily at bedtime, 0 Refills, Maintenance Start Date: 12/13/15 Status: Ordered Entresto 49 mg-51 mg oral tablet 1 tablet, By Mouth, 2 times a day, # 60 tablet, 0 Refills, Maintenance, 11/20/20 15:42:00 EDT, Tablet, Partial fill upon patient request if the prescription is for a schedule II opioid drug. Start Date: 11/20/20 Status: Ordered levothyroxine 0.05 mg oral tablet 1 tablet = 50 mcg, By Mouth, Daily, # 90 tablet, 3 Refills, Maintenance, 02/27/22 15:13:00 EDT, [id number] Partial fill upon patient request if the prescription is for a schedule II opioid drug., 178, cm, 02/27/22 14:34:00 EDT, Height... Start Date: 02/27/22 Status: Ordered metoprolol 25 mg oral tablet 25 mg, 1, tablet, By Mouth, 2 times a day, # 180 tablet, Refills 3, Tot. Refills 3, Maintenance, 02/27/22 15:06:00 EDT, Do Not Route, Partial fill upon patient request if the prescription is for a schedule II opioid drug. Start Date: 02/27/22 Status: Ordered nitroglycerin 0.4 mg sublingual tablet 1 tablet = 0.4 mg, Sublingual, Every 5 minutes, PRN for chest pain, # 25 tablet, 3 Refills, Maintenance, 09/25/22 9:08:00 EST, Tablet, [id number], 178, cm, 04/01/22 11:00:00 EDT, Height, 82, kg, 11/06/20 13:12:00 EDT, Dry Weight Start Date: 09/25/22 Status: Ordered omeprazole 20 mg oral enteric coated capsule 1 capsule = 20 mg, By Mouth, Daily, # 90 capsule, 1 Refills, Maintenance, 10/20/22 11:18:00 EST, ECCapsule, [id number], Partial fill upon patient request if the prescription is for a schedule II opioid drug., 178, cm, 04/01/22 11:00:00 EDT, H... Start Date: 10/20/22 Status: Ordered Tylenol Caplet Extra Strength = 1,000 mg, By Mouth, Every 8 hours, PRN Pain , Moderate, 0 Refills, Maintenance, 01/25/23 9:11:00 EDT, Partial fill upon patient request if the prescription is for a schedule II opioid drug. Start Date: 01/25/23 Status: Ordered Vitamin D3 1000 intl units oral tablet = 25 mcg, By Mouth, 0 Refills, Maintenance, 01/06/21 11:57:00 EDT, Partial fill upon patient request if the prescription is for a schedule II opioid drug. Start Date: 01/06/21 Status: Ordered Problem List Condition Confirmation Course Effective Dates Status H ealth Status Informant Arthritis 1 Confirmed Active Breast mass, right Confirmed Active Angel-Ye respiration Confirmed Active Coronary artery disease 2 Confirmed 09/09/11 Active Diverticulosis Confirmed Active Gastric reflux 3 Confirmed Active Ischemic cardiomyopathy Confirmed Active Ischemic cardiomyopathy with implantable cardioverter-defibrill ator (ICD) Confirmed Active Gynecomastia Confirmed Active Personal history of benign carcinoid tumor terminal ileum Confirmed 08/04/06 Active Hearing loss Confirmed Active History of basal cell carcinoma 4 Confirmed Active History of prostate cancer 5 Confirmed Active Hyperlipidemia Confirmed Active Hypothyroid Confirmed 07/19/07 Active Impaired fasting glucose Confirmed 02/21/08 Active Impaired glucose tolerance Confirmed 02/21/08 Active Mild memory disturbance Confirmed Active Sleep apnea (central) Confirmed 01/16/08 Active Thrombocytopenia Confirmed Active Tremor Confirmed Active White coat hypertension Confirmed Active 1right hip knee and shoulder 2coronary angiography, left heart catheterization, left ventriculography, single vessel drug-coated stent placement to the ostium of the second obtuse marginal branch of the circumflex; Dr. Strong 3DrNadia Hendrickson 4L cheek Dr. Galvan 5s/p radical prostatectomy Dr. Pederson Social History Social History Type Response Smoking Status Former smoker; Start ed at age: 12; Stopped at age: 56; entered on: 01/03/15 Sex Patient Care team information Care Team Personnel Name: Salud Izaguirre RN Position: [facility] SN RN Member Role: Primary Care Nurse Name: Esperanza Newberry MD Position: [facility] Physician - Primary Care Member Role: PCP Address: Address: [address] [place] [address]- Name: Julia Covarrubias RN Position: [facility] AMB Nurse Member Role: Primary Care Nurse Name: Tony Romo MD Position: [facility] Oncology MD Member Role: Lifetime Consulting Physician Address: Address: [address] [place] [address] [place] [address]- [place] Name: Eden Uribe RN Position: [facility] RN Member Role: Primary Care Nurse Name: Ismael Strong MD Position: [facility] Cardiology MD Member Role: Lifetime Consulting Physician Address: Address: [address] [place] [address]- [place] Name: Elly Ramirez RN Position: [facility] RN Member Role: Primary Care Nurse Care Team Related Persons Name: VALERY PIERSON Address: [address] [address]
--- OUTSIDE RECORDS SUMMARY | 2023-12-27 08:06 | XMS_ITS | Patient Health Record ---
Author Organization [facility] Address [address] [facility] [address] [place] [address] Care Team Providers Care Dielectric Embossing Machine Operator Name Role Phone SUZANNE MENDEZ Primary Care Provider Suzanne Mendez Unavailable Unavailabl e Migration, Provider Unavailable Unavailable ZAYDA LABOY Unavailable [phone] REASON FOR REFERRAL No Information MEDICATIONS Medication SIG (Take, Route, Frequency, Duration) Notes Start Date End Date Status Levothyroxine Sodium 50 MCG 1 tablet Ora lly Once a day Active Aspirin 81 Active Entresto 49-51 MG 1 tablet Orally Twic e a day Active Metoprolol Succinate 50 MG 1 capsule Ora lly Once a day Active Omeprazole 20 MG 1 capsule 30 minutes before morning meal Orally Once a day Active Atorvastatin Calcium 20 MG 1 tablet Oral ly Once a day Active SOCIAL HISTORY Sex Assigned At : Social History Observation Description Sex Assigned At Unknown PROBLEMS Problem Type ICD Code Onset Dates Problem Status W/U Status Risk SNOMED Code Notes Problem Ischemic cardiomyopathy (I25.5) Active confirmed Ischemic cardiomyopathy (213766134) Problem Presence of other cardiac implants and grafts (Z95.818) Active confirmed 642814107 Problem Abnormal EKG (R94.31) Active confirmed 193722147 Problem Arteriosclerosis of coronary artery (I25.10) Active confirmed Atherosclerotic heart disease of [place] coronary artery without angina pectoris (055683700308184) Problem Mixed hyperlipidemia (E78.2) Active confirmed 225168632 Problem 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 Oximetry 95 % 11/10/[address] pain when the wether is cold. Blood pressure diastolic 60 mm Hg 11/10/2023 Pat ient has chest pain when the wether is cold. Height 70 in 11/10/[address] pain when the wether is cold. Blood pressure systolic 110 mm Hg 11/10/2023 Carolyn ent has chest pain when the wether is cold. Weight 175 lbs 11/10/[address] pain when the wether is cold. BMI 25.11 kg/m2 11/10/[address] pain when the wether is cold. Encounters Encounter Location Date Provider Diagnosis [facility] [address] [place] [address] 10/03/2023 SUZANNE MENDEZ [facility] DM [facility] [address] [place] [address] 10/04/2023 SUZANNE MENDEZ [facility] [address] [place] [address] 10/11/2023 SUZANNE MENDEZ [facility] [address] [place] [address] 10/19/2023 SUZANNE MENDEZ [facility] [address] [place] [address] [place] [address] 11/02/2023 SUZANNE MENDEZ [facility] [address] [place] [address] 11/10/2023 ZAYDA LABOY Ischemic cardiomyopathy I25.5 ; Arteriosclerosis of coronary artery I25.10 ; Hypertension with heart disease I11.9 ; Presence of other cardiac implants and grafts Z95.818 ; Mixed hyperlipidemia E78.2 and Abnormal EKG R94.31 [facility] [address] [place] [address] [place] [address] 06/12/2023 Provider Migration [facility] [address] [place] [address] [place] [address] 06/13/2023 Provider Migration [facility] [address] [place] [address] [place] [address] 11/02/2023 SUZANNE MENDEZ Ischemic cardiomyopathy I25.5 and Arteriosclerosis of coronary artery I25.10 ASSESSMENTS Encounter Date Diagnosis Assessment Notes Treatment Notes Treatment Clinical Notes 11/02/2023 Ischemic cardiomyopa thy (ICD-10 - I25.5) 11/10/2023 Ischemic cardiomyopa thy (ICD-10 - I25.5) 11/02/2023 Arteriosclerosis of coronary artery (ICD-10 - I25.10) 11/10/2023 Arteriosclerosis of coronary artery (ICD-10 - I25.10) 11/10/2023 Hypertension with he art disease (ICD-10 - I11.9) 11/10/2023 Presence of other cardiac implants and grafts (ICD-10 - Z95.818) 11/10/2023 Mixed hyperlipidemia (ICD-10 - E78.2) 11/10/2023 Abnormal EKG (ICD-10 - R94.31) PLAN OF TREATMENT Future Test Test Name Order Date Cardiac PET Scan 11/02/2023 Next Appt Details Provider Name:SUZANNE GREGORY, 04/11/2024 10:00:00 AM, [address] [place], [address], Insurance Providers Payer Name Payer Address Payer Phone Subscriber Number Group Number Insured Name Patient Relationship to Insured Coverage Start Date Coverage End Date [employer] [place] [employer] [address] [address] [place] [address] [id number] TOMAS PIERSON Self - patient is the insured 9 [facility] [address] [place] [address] [phone] [id number] TOMAS PIERSON Self - patient is the insured 9 MEDICAL (GENERAL) HISTORY Medical History History ICD Code Myocardial infarction ischemic Cardiomyopathy (30-35%) HTN HLD CAD Surgical History Surgery Date(Month/Year) 2 Total hip replacements Bowel resection Appendectomy 3 Stentss (1 ON2 & 2 LAD's) Pacemaker/ICD
--- OUTSIDE RECORDS SUMMARY | 2023-12-27 08:06 | XMS_ITS | Continuity of Care Document ---
Author Organization [facility] Address [address] [place] [id number]- Care Team Providers Care Marketing Account Executive Name Role Phone Esperanza Newberry MD Primary Care Physician [place] [facility] [place]23[place] 11/02/19 [facility] [address] [place] [id number]- [facility] Attending Physician: Paige Eaton Admitting Physician: AdmtrPaige Referring Physician: Admtr, Ar8 Allergies, Adverse Reactions, [...] toxoids (Td) 7 09/29/02 Given 1Travel Destination: [facility] [id number] Newberry [facility] 3Admin Note: josiah carvalhoofi pasteur 4[facility]: [facility] 6Admin Note: done at [facility] 7Admin Note: [employer] Medications aspirin 81 mg oral enteric coated tablet See Instructions, By Mouth Daily, 0 Refills, Maintenance Start Date: 08/26/11 Status: Ordered atorvastatin 40 mg oral tablet 0.5 tablet = 20 mg, By Mouth, Daily at bedtime, 0 Refills, Maintenance Start Date: 12/13/15 Status: Ordered metoprolol 25 mg oral tablet 25 mg, 1, tablet, By Mouth, 2 times a day, # 180 tablet, Refills 0, Maintenance, 12/02/15 15:19:38 Start Date: 12/02/15 Status: Ordered Problem List Condition Effective Dates [...] branch of the circumflex; Dr. Strong 3DrNadia Hendrikcson 4L cheek Dr. Galvan 5s/p radical prostatectomy Dr. Pederson Social History Social History Type Response Smoking Status Former smoker; Start ed at age: 12; Stopped at age: 56; entered on: 01/03/15 Sex
--- OUTSIDE RECORDS SUMMARY | 2023-12-27 08:06 | XMS_ITS | Continuity of Care Document ---
Author Organization [facility] Address [address] [place] [id number]- Care Team Providers Care Deputy Program Manager Name Role Phone WAYLON PALOMARES MD Primary Care Physician [phone] Encounter DEL Date(s): 08/06/21 - 08/06/[address] Phone: [place] [address]- Discharge Disposition: Home/Self Care Attending Physician: CELESTE OVALLE MD Admitting Physician: CELESTE OVALLE MD Referring Physician: CELESTE OVALLE MD Allergies, Adverse Reactions, Alerts Substance Reaction Severity Status cefuroxime Active acetaminophen-oxyCODONE Acti ve aspirin-oxyCODONE Active Medications amiodarone 100 mg oral tablet 100 mg = 1 tab, Oral, Daily, # 30 tab, 0 Refill(s) Start Date: 07/18/21 Status: Ordered Aspir 81 oral enteric coated tablet 81 mg = 1 tab, Oral, Daily, # 30 tab, 0 Refill(s) Start Date: 10/21/18 Status: Ordered atorvastatin 20 mg, Oral, Daily, 0 Refill(s) Start Date: 10/21/18 Status: Ordered Diovan 40 mg oral tablet 40 mg = 1 tab, Oral, Daily, # 30 tab, 0 Refill(s) Start Date: 10/22/18 Status: Ordered Entresto 49 mg-51 mg oral tablet 1 tab, BID, 0 Refill(s) Start Date: 07/18/21 Status: Ordered levothyroxine 37.5, Oral, Daily, 0 Refill(s) Start Date: 10/21/18 Stop Date: 11/20/18 Status: Ordered metoprolol succinate 25 mg oral capsule, extended release 25 mg = 1 cap, Oral, BID, 0 Refill(s) Start Date: 10/21/18 Status: Ordered omeprazole 40 mg, Oral, Daily AC, # 30 cap, 0 Refill(s) Start Date: 10/21/18 Status: Ordered Vitamin B-12 1000 mcg oral tablet 1,000 mcg = 1 tab, Oral, Daily, # 90 tab, 0 Refill(s) Start Date: 10/21/18 Status: Ordered Problem List Condition Effective Dates Status Health Status Inform ant Coronary stent occlusion(Confirmed) Active patient FH: heart attack(Confirmed) 09/23/14 Active patient GERD (gastroesophageal reflu x disease)(Confirmed) Active patient Stented coronary artery(Confirmed) Active patient Social History Social History Type Response Smoking Status Former smoker Sex
--- OUTSIDE RECORDS SUMMARY | 2023-12-27 08:06 | XMS_ITS | Continuity of Care Document ---
Author Organization [facility] Address [address] [place] [phone]- Care Team Providers Care Marketing Communications Assistant Name Role Phone Esperanza Newberry MD Primary Care Physician [place] [facility] [place](s): 11/06/20 - 11/06/[address] [address] Discharge Disposition: A-D/C Home Attending Physician: Ab Piña MD Admitting Physician: Ab Piña MD Referring Physician: Ab Piña MD Allergies, Adverse Reactions, Alerts Substance Reaction Severity Status Ceftin rash Active Percodan Active Tylox Active statins Myalgia Active Immunizations Given and Recorded Vaccine Date Status Refusal Reason SARS-CoV-2 (COVID-19) mRNA BNT-162b2 vac 10/11/20 Given Influenza Virus Vaccine (oldterm) 05/23/19 Recorde d influenza virus vaccine, inactivated 1 05/05/17 Gi rudy influenza virus vaccine, inactivated 2 06/19/16 Re corded influenza virus vaccine, inactivated 06/15/14 Give n influenza virus vaccine, inactivated 05/26/13 Juan rded influenza virus vaccine, inactivated 08/26/11 Give n influenza virus vaccine, inactivated 09/02/10 Give n influenza virus vaccine, inactivated 3 08/23/08 Gi urdy tetanus/diphtheria/pertussis, acel(Tdap) 04/25/17 Recorded Influenza Vaccine (oldterm) 4 06/04/15 Recorded Influenza Vaccine (oldterm) 06/16/09 Given pneumococcal 13-valent vaccine 04/04/15 Given Fluvirin (oldterm) 5 06/15/14 Recorded FluLaval (oldterm) 08/26/12 Given Zostavax (oldterm) 6 12/27/09 Given influ virus vac, H1N1, inactive(oldterm) 06/16/09 Given Pneumococcal Vaccine (oldterm) 07/16/06 Given tetanus-diphtheria toxoids (Td) 7 09/29/02 Given 1Travel Destination: [facility] [id number] Newberry [facility] 3Admin Note: josiah butler 4[facility]: [facility] 6Admin Note: done at pharmacy 7Admin Note: [employer] Medications aspirin 81 mg oral delayed release tablet 81 mg, 1, tablet, By Mouth, Daily, # 90 tablet, Refills 3, Tot. Refills 3, Maintenance, 04/11/20 11:28:00 EDT, Route to Pharmacy Electronically, [facility], 178, cm, 04/11/20 7:52:00 [...] Refills, Maintenance, 04/11/20 11:27:00 EDT, ER Tablet, [facility], 178, cm, 04/11/20 7:52:00 EDT, Height, 82.7, kg, 04/10/20 15:42:00 EDT, Dry Weight Start Date: 04/11/20 Status: Ordered metoprolol 50 mg oral tablet 50 mg, Tablet, By Mouth, Once, Routine, 11/06/20 16:00:00 EDT, Stop date 11/06/20 16:00:00 EDT Start Date: 11/06/20 Stop Date: 11/06/20 Status: Completed metoprolol 50 mg oral tablet 50 mg, 1, tablet, By Mouth, 2 times a day, # 180 tablet, Refills 0, Tot. Refills 0, Maintenance, 04/11/20 11:26:00 EDT, Route to Pharmacy Electronically, [facility], 178, cm, 04/11/20 7:52:00 [...] obtuse marginal branch of the circumflex; Dr. Strnog 3DrNadia Hendrickson 4L cheek Dr[address] Galvan 5s/p radical prostatectomy Dr. Pederson Vital Signs Most recent to oldest [Reference Range]: 1 2 3 Height 178 cm (11/06/20 4:06 PM) 178 cm (11/06/20 1:36 PM) 178 cm (11/06/20 1:20 PM) Weight 82 kg (11/06/20 1:36 PM) 82 kg (11/06/20 1:20 PM) 82 kg (11/06/20 1:12 PM) Oxygen Saturation [94-100 %] 96 % (11/06/20 4:06 PM) 98 % (11/06/20 1:36 PM) Pulse Rate [55-90 bpm] 63 bpm (11/06/20 4:47 PM) 72 bpm (11/06/20 4:06 PM) 67 bpm (11/06/20 1:36 PM) Body Mass Index [18.5-24.99] 25.88 *H* (11/06/20 1:36 PM) Blood Pressure [90-138/55-84 mm Hg] 121/68mm Hg (11/06/20 4:47 PM) 126/62mm Hg (11/06/20 4:06 PM) 126/61mm Hg (11/06/20 1:36 PM) Respiratory Rate [16-30 br/min] 18 br/min (11/06/20 4:06 PM) 20 br/min (11/06/20 1:36 PM) Temperature [96.8-100.4 DegF] 97.9 DegF (11/06/20 4:06 PM) 98 DegF (11/06/20 1:36 PM) Mode of Delivery (Oxygen) Room air (11/06/20 4:06 PM) Room air (11/06/20 1:36 PM) Blood pressure sites Arm, right (11/06/20 4:06 PM) Arm, left (11/06/20 1:36 PM) Temperature Route Oral (11/06/20 4:06 PM) Oral (11/06/20 1:36 PM) Dry Weight 82 kg (11/06/20 1:12 PM) Social History Social History Type Response Smoking Status Former smoker; Start ed at age: 12; Stopped at age: 56; entered on: 01/03/15 Sex
--- OUTSIDE RECORDS SUMMARY | 2023-12-27 08:06 | XMS_ITS | Continuity of Care Document ---
Author Organization [facility] Address [address] [place] [phone]- Care Team Providers Care Tile Professional Name Role Phone WAYLON PALOMARES MD Primary Care Physician Encounter DEL Date(s): 07/18/21 - 07/22/[address] Phone: [place] [address]- Encounter Diagnosis Sepsis(Discharge Diagnosis) - 07/18/21 CAP (community acquired pneumonia)(Discharge Diagnosis) - 07/18/21 Discharge Disposition: Home/Self Care Attending Physician: CAMRON MARTIN MD Admitting Physician: CAMRON MARTIN MD Referring Physician: CAMRON MARTIN MD Allergies, Adverse Reactions, Alerts Substance Reaction Severity Status cefuroxime Active acetaminophen-oxyCODONE Acti ve aspirin-oxyCODONE Active Functional Status 07/22/21 Gait Normal 07/18/21 Living Situation House, 2 story Lives With Spouse Mobility Assistance Prior to Admission I ndependent Current Home Treatments CPAP Patient Activities Prior to Admission Re tired Sensory Deficits Hearing deficit, lef t ear, Hearing deficit, right ear, Other: Has bilateral hearing aids Medications amiodarone 100 mg oral tablet 100 [...] 0 Refill(s) Start Date: 10/22/18 Status: Ordered doxycycline monohydrate 100 mg oral capsule 100 mg = 1 cap, Oral, Q12hr, X 7 day, # 14 cap, 0 Refill(s), Pharmacy: [facility]/pharmacy #[id number], 1 cap Oral Q12hr,x7 day, 178, cm, 07/18/2021 05:50:00 EST, Height, 84, kg, 07/18/2021 05:50:00 EST, Dosing Weight Start Date: 07/21/21 Stop Date: 07/28/21 Status: Ordered Entresto 49 mg-51 mg oral [...] 0 Refill(s) Start Date: 10/21/18 Status: Ordered Mental Status 07/19/21 Cognition During ADLs WNL Problem List Condition Effective Dates Status Health Status Inform ant Coronary stent occlusion(Confirmed) Active patient FH: heart attack(Confirmed) 09/23/14 Active patient GERD (gastroesophageal reflu x disease)(Confirmed) Active patient Stented coronary artery(Confirmed) Active patient Results Laboratory List Name Date Basic Metabolic Panel (BMP) 07/22/21 Complete Blood Count With Auto Different ial (CBC w/auto Diff) 07/22/21 Basic Metabolic Panel (BMP) 07/21/21 Complete Blood Count With Auto Different ial (CBC w/auto Diff) 07/21/21 Basic Metabolic Panel (BMP) 07/20/21 Complete Blood Count With Auto Different ial (CBC w/auto Diff) 07/20/21 Complete Blood Count With Auto Different ial 07/19/21 Magnesium Level 07/19/21 Phosphate Level 07/19/21 Troponin I 07/18/21 Troponin I 07/18/21 Legionella Antigen Urine 07/18/21 Lactic Acid Level Venous 07/18/21 BNP 07/18/21 Comprehensive Metabolic Panel (CMP) 07/18 Lactic Acid Level Venous 07/18/21 Magnesium Level 07/18/21 Partial Thromboplastin Time (PTT) 1 Prothrombin Time (INR - Prothrombin Time ) 07/18/21 Troponin I 07/18/21 Coronavirus SARS-CoV-2 (COVID-19) PCR Most recent to oldest [Reference Range]: 1 2 3 COVID-19 PCR [Presumptive Neg] Presumptive Neg (07/18/21 5:41 AM) NRBC Auto Rel [0.0-0.6 /100WBC] 0.1 /100WBC (07/22/21 5:36 AM) 0.1 /100WBC (07/21/21 4:13 AM) 0.1 /100WBC (07/19/21 3:25 AM) AGAP [5-15 mEq/L] 11 mEq/L (07/22/21 5:36 AM) 10 mEq/L (07/21/21 4:13 AM) 11 mEq/L (07/20/21 6:45 AM) BUN/Creat [10-20 ratio] 23 ratio *HI* (07/22/21 5:36 AM) 24 ratio *HI* (07/21/21 4:13 AM) 30 ratio *HI* (07/20/21 6:45 AM) Globulin [2.0-5.0 g/dL] 2.7 g/dL (07/18/21 5:45 AM) A/G Ratio 1.4 *NA* (07/18/21 5:45 AM) PT [9.0-11.5 sec] 10.6 sec (07/18/21 5:45 AM) PTT [22.1-31.1 sec] 32.2 sec *HI* (07/18/21 5:45 AM) Sodium Lvl [135-145 mEq/L] 137 mEq/L (07/22/21 5:36 AM) 134 mEq/L *LOW* (07/21/21 4:13 AM) 138 mEq/L (07/20/21 6:45 AM) Total Protein [6.5-8.1 g/dL] 6.6 g/dL (07/18/21 5:45 AM) Albumin Lvl [3.4-5.0 g/dL] 3.9 g/dL (07/18/21 5:45 AM) Alk Phos [38-126 IU/L] 38 IU/L (07/18/21 5:45 AM) ALT [17-63 IU/L] 19 IU/L (07/18/21 5:45 AM) AST [15-41 IU/L] 33 IU/L (07/18/21 5:45 AM) Bili Total [0.3-1.2 mg/dL] 1.1 mg/dL (07/18/21 5:45 AM) CO2 [22-32 mmol/L] 26 mmol/L (07/22/21:36 AM) 22 mmol/L (07/21/21 4:13 AM) 24 mmol/L (07/20/21 6:45 AM) Glucose Level [74-118 mg/dL] 89 mg/dL (07/22/21:36 AM) 93 mg/dL (07/21/21 4:13 AM) 97 mg/dL (07/20/21 6:45 AM) INR 1.0 *NA* (07/18/21 5:45 AM) Magnesium Lvl [1.8-2.5 mg/dL] 2.0 mg/dL (07/19/21 3:25 AM) 1.8 mg/dL (07/18/21 5:45 AM) Potassium Lvl [3.5-5.1 mEq/L] 4.1 mEq/L (07/22/21 5:36 AM) 3.9 mEq/L (07/21/21 4:13 AM) 4.2 mEq/L (07/20/21 6:45 AM) BUN [8-26 mg/dL] 23 mg/dL (07/22/21 5:36 AM) 24 mg/dL (07/21/21 4:13 AM) 36 mg/dL *HI* (07/20/21 6:45 AM) Calcium Lvl [8.7-10.3 mg/dL] 8.7 mg/dL (07/22/21 5:36 AM) 8.5 mg/dL *LOW* (07/21/21 4:13 AM) 8.9 mg/dL (07/20/21 6:45 AM) Troponin I [2.3-19.8 pg/mL] 22.3 pg/mL *HI* (07/18/21 5:23 PM) 22.8 pg/mL *HI* (07/18/21 2:20 PM) 30.9 pg/mL *HI* (07/18/21 5:45 AM) BNP [0-100 pg/mL] 167 pg/mL *HI* (07/18/21 5:45 AM) Creatinine Lvl [0.6-1.2 mg/dL] 1.0 mg/dL (07/22/21 5:36 AM) 1.0 mg/dL (07/21/21 4:13 AM) 1.2 mg/dL (07/20/21 6:45 AM) Chloride Lvl [98-111 mmol/L] 100 mmol/L (07/22/21 5:36 AM) 102 mmol/L (07/21/21 4:13 AM) 103 mmol/L (07/20/21 6:45 AM) Lactic Acid [0.5-2.2 mmol/L] 1.1 mmol/L (07/18/21 7:30 AM) 1.6 mmol/L (07/18/21 5:45 AM) Phosphate [2.5-4.6 mg/dL] 2.0 mg/dL *LOW* (07/19/21 3:25 AM) Legionella AgUr [Negative] Negative (07/18/21 8:38 AM) Osmolality Calc [275-305 mmol/kg] 277 mmol/kg (07/22/21 5:36 AM) 272 mmol/kg *LOW* (07/21/21 4:13 AM) 284 mmol/kg (07/20/21 6:45 AM) GFR Am [>=60.0 mL/min/1.73m2] >60.0 mL/min/1.73m2 (07/22/21 5:36 AM) >60.0 mL/min/1.73m2 (07/21/21 4:13 AM) >60.0 mL/min/1.73m2 (07/20/21 6:45 AM) GFR Non Am [>=60.0 mL/min/1.73m2] >60.0 mL/min/1.73m2 (07/22/21 5:36 AM) >60.0 mL/min/1.73m2 (07/21/21 4:13 AM) 59.0 mL/min/1.73m2 *LOW* (07/20/21 6:45 AM) WBC [5.0-10.0 x10(3)/mcL] 6.0 x10(3)/mcL (07/22/21 5:36 AM) 5.1 x10(3)/mcL (07/21/21 4:13 AM) 10.1 x10(3)/mcL *HI* (07/20/21 6:45 AM) RBC [4.70-6.10 x10(6)/mcL] 4.25 x10(6)/mcL *LOW* (07/22/21 5:36 AM) 3.93 x10(6)/mcL *LOW* (07/21/21 4:13 AM) 4.39 x10(6)/mcL *LOW* (07/20/21 6:45 AM) Hgb [14.0-18.0 g/dL] 12.9 g/dL *LOW* (07/22/21 5:36 AM) 12.1 g/dL *LOW* (07/21/21 4:13 AM) 13.4 g/dL *LOW* (07/20/21 6:45 AM) Hct [42.0-52.0 %] 39.0 % *LOW* (07/22/21 5:36 AM) 35.9 % *LOW* (07/21/21 4:13 AM) 40.4 % *LOW* (07/20/21 6:45 AM) MCV [81.0-98.0 fL] 91.8 fL (07/22/21 5:36 AM) 91.4 fL (07/21/21 4:13 AM) 91.9 fL (07/20/21 6:45 AM) MPV [7.4-10.4 fL] 9.2 fL (07/22/21 5:36 AM) 9.6 fL (07/21/21 4:13 AM) 10.1 fL (07/20/21 6:45 AM) MCH [27.0-31.0 pg] 30.4 pg (07/22/21 5:36 AM) 30.8 pg (07/21/21 4:13 AM) 30.5 pg (07/20/21 6:45 AM) MCHC [33.4-35.5 %] 33.1 % *LOW* (07/22/21 5:36 AM) 33.7 % (07/21/21 4:13 AM) 33.1 % *LOW* (07/20/21 6:45 AM) RDW [11.5-14.5 %] 14.5 % (07/22/21 5:36 AM) 14.6 % *HI* (07/21/21 4:13 AM) 14.8 % *HI* (07/20/21 6:45 AM) Platelet Count [150-450 x10(3)/mcL] 134 x10(3)/mcL *LOW* (07/22/21 5:36 AM) 112 x10(3)/mcL *LOW* (07/21/21 4:13 AM) 125 x10(3)/mcL *LOW* (07/20/21 6:45 AM) Neutrophil Rel [40.0-80.0 %] 76.1 % (07/22/21 5:36 AM) 76.8 % (07/21/21 4:13 AM) 86.4 % *HI* (07/20/21 6:45 AM) Lymphocyte Rel [10.0-50.0 %] 14.5 % (07/22/21 5:36 AM) 15.7 % (07/21/21 4:13 AM) 7.9 % *LOW* (07/20/21 6:45 AM) Lymphocyte Abs [1.0-5.0 /cm3] 0.9 /cm3 *LOW* (07/22/21 5:36 AM) 0.8 /cm3 *LOW* (07/21/21 4:13 AM) 0.8 /cm3 *LOW* (07/20/21 6:45 AM) Neutrophil Abs [1.0-7.5 /cm3] 4.5 /cm3 (07/22/21 5:36 AM) 4.0 /cm3 (07/21/21 4:13 AM) 8.8 /cm3 *HI* (07/20/21 6:45 AM) Monocyte Rel [1.0-8.0 %] 8.8 % *HI* (07/22/21 5:36 AM) 7.3 % (07/21/21 4:13 AM) 5.6 % (07/20/21 6:45 AM) Monocyte Abs [0.2-1.0 /cm3] 0.5 /cm3 (07/22/21 5:36 AM) 0.4 /cm3 (07/21/21 4:13 AM) 0.6 /cm3 (07/20/21 6:45 AM) Eosinophil Rel [0.0-5.0 %] 0.3 % (07/22/21 5:36 AM) 0.1 % (07/21/21 4:13 AM) 0.0 % (07/20/21 6:45 AM) Eosinophil Abs [0.0-0.7 /cm3] 0.0 /cm3 (07/22/21 5:36 AM) 0.0 /cm3 (07/21/21 4:13 AM) 0.0 /cm3 (07/20/21 6:45 AM) Basophil Rel [0.0-1.0 %] 0.3 % (07/22/21 5:36 AM) 0.1 % (07/21/21 4:13 AM) 0.1 % (07/20/21 6:45 AM) Basophil Abs [0.0-0.2 /cm3] 0.0 /cm3 (07/22/21 5:36 AM) 0.0 /cm3 (07/21/21 4:13 AM) 0.0 /cm3 (07/20/21 6:45 AM) Calcium Corrctd 8.8 mg/dL *NA* (07/18/21 5:45 AM) Orders for Microbiology Reports Name Date MRSA Screen Culture 07/18/21 Sputum Culture (Culture Sputum) 07/18/21 Blood Culture 07/18/21 Blood Culture 07/18/21 Microbiology Reports TEST:MRSA Screen STATUS:Auth (Verified) BODY SITE:Nares SOURCE:Nasal COLLECTED DATE/TIME:07/18/21 11:20 AM FINAL REPORT No Methicillin Resistant Staphylococcus aureus isolated TEST:Sputum Culture STATUS:Auth (Verified) BODY SITE: SOURCE:Sputum COLLECTED DATE/TIME:07/18/21 10:30 AM FINAL REPORT Many Normal upper respiratory jaylene isolated STAIN REPORT Many polymorphonuclear leukocytes Moderate squamous epithelial cells Many Mixed Respiratory Morphologies TEST:Blood Culture1 STATUS:Order in Progress BODY SITE: SOURCE:Peripheral Draw COLLECTED DATE/TIME:07/18/21 5:45 AM PRELIMINARY REPORT No growth at 4 days. TEST:Blood Culture2 STATUS:Order in Progress BODY SITE: SOURCE:Peripheral Draw COLLECTED DATE/TIME:07/18/21 5:30 AM PRELIMINARY REPORT No growth at 4 days. INTERPRETIVE DATA 1 2 Radiology Reports * Exam Date Time Procedure Performing Provider Status 07/19/21 8:11 AM XR Chest 1 View Will HYDE(R), Ken; Auth (Verified) Notes: (XR Chest 1 View) Reason For Exam: CHF (Congestive Heart Failure) REPORT EXAM: XR Chest 1 View CLINICAL HISTORY: CHF (Congestive Heart Failure); CAP-SEPSIS COMPARISON: 07/18/2021 FINDINGS: Portable upright radiograph of the chest was obtained. Left base atelectasis. No distinctconsolidation, pleural effusion or pneumothorax. Stable cardiomediastinal silhouette with left automatic implantable cardiac defibrillator. IMPRESSION: 1. Stable left base atelectasis. Final Report Dictated: 07/19/2021 8:26 am Dictated By: MARLEY CONKLIN MD Electronic Signature: 07/19/2021 8:26 am Signed By: MARLEY CONKLIN MD * Exam Date Time Procedure Performing Provider Status 07/18/21 5:46 AM XR Chest 1 View Carrillo (RT)RYuriy; Auth (Verified) Notes: (XR Chest 1 View) Reason For Exam: Shortness of Breath REPORT AP chest. History: Shortness of Breath,TROUBLE BREATHING Technique: Single view of the chest was obtained Comparison: 10/21/2018 Findings: Subsegmental atelectasis and/or subtle infiltrates in the left lower lobe retrocardiac region. No consolidation. No pneumothorax. Left-sided pacemaker device. Degenerative changes of the glenohumeral joints. IMPRESSION: Subtle subsegmental atelectasis and/or infiltrates in the left lower lobe Final Report Dictated: 07/18/2021 6:12 am Dictated By: REGGIE SALAZAR MD Electronic Signature: 07/18/2021 6:12 am Signed By: REGGIE SALAZAR MD Vital Signs Most recent to oldest [Reference Range]: 1 2 3 Blood Pressure [90-140/60-90 mmHg] 119/70mmHg (07/22/21 12:00 PM) 114/60mmHg (07/22/21 11:03 AM) 114/60mmHg (07/22/21 8:00 AM) Blood Pressure Location Left, Upper, Arm (07/22/21 12:00 PM) Left, Upper, Arm (07/22/21 5:40 AM) Left, Upper, Arm (07/21/21 8:00 PM) Blood Pressure Method Automatic (07/22/21 12:00 PM) Automatic (07/22/21 5:40 AM) Automatic (07/21/21 8:00 PM) Dosing BMI 27 (07/18/21 5:48 AM) Dosing BSA-Mosteller 2.04 m2 (07/18/21 5:48 AM) Dosing Weight 84 kg (07/18/21 5:48 AM) Heart Rate [60-100 bpm] 78 bpm (07/22/21 4:44 PM) 78 bpm (07/22/21 2:42 PM) 70 bpm (07/22/21 12:00 PM) Heart Rate Method Monitor (07/21/21 6:10 PM) Monitor (07/21/21 10:47 AM) Monitor (07/21/21 10:47 AM) Height 178 cm (07/18/21 5:48 AM) Mean Arterial Pressure 86 mmHg (07/22/21 12:00 PM) 79 mmHg (07/22/21 5:40 AM) 82 mmHg (07/21/21 8:00 PM) Probe Site Right, Finger (07/22/21 12:00 PM) Left, Finger (07/22/21 8:00 AM) Left, Finger (07/22/21 5:40 AM) Pulse/HR Location Left (07/20/21 4:55 PM) Right (07/20/21 12:47 PM) Right (07/18/21 5:48 AM) Pulse/HR Method Monitor (07/22/21 12:00 PM) Monitor (07/22/21 5:40 AM) Monitor (07/21/21 8:00 PM) Respiratory Rate [14-20 breaths/min] 16 breaths/min (07/22/21 2:42 PM) 16 breaths/min (07/22/21 12:00 PM) 18 breaths/min (07/22/21 8:00 AM) SpO2/Pulse Oximetry [85-100 %] 94 % (07/22/21 2:42 PM) 94 % (07/22/21 12:00 PM) 91 % (07/22/21 8:00 AM) Temperature C Converted [35.8-37.3 degC] 37 degC (07/22/21 12:00 PM) 36.8 degC (07/22/21 5:40 AM) 37.5 degC *HI* (07/21/21 8:00 PM) Temperature F [98-100.5 degF] 98.6 degF (07/22/21 12:00 PM) 97.9 degF *LOW* (07/22/21 11:03 AM) 97.9 degF *LOW* (07/22/21 8:00 AM) Temperature F Converted [98-100.5 degF] 98.6 degF (07/22/21 12:00 PM) 98.3 degF (07/22/21 5:40 AM) 99.5 degF (07/21/21 8:00 PM) Temperature Method Oral (07/22/21 12:00 PM) Oral (07/22/21 8:00 AM) Oral (07/22/21 5:40 AM) Social History Social History Type Response Smoking Status Former smoker Sex Hospital Discharge Instructions Follow Up Care 07/18/2021 05:22:09 With:CELESTE OVALLE Address: [address] [place] [address]- [phone] Business (1) When:5-7 days
--- OUTSIDE RECORDS SUMMARY | 2023-12-27 08:06 | XMS_ITS | Continuity of Care Document ---
Author Organization [facility] ter Address [address] [place] [address]- Care Team Providers Care Sub Prior Name Role Phone Esperanza Newberry MD Primary Care Physician [facility] Date[facility]): 03/[facility]/23 - 03/10/[address] [address] Attending Physician: Esperanza Newberry MD Allergies, Adverse Reactions, Alerts Substance Reaction [...] toxoids (Td) 7 09/29/02 Given 1Travel Destination: [facility] [id number] Newberry [facility] 3Admin Note: josiah carvalhoofi pasteur 4[facility] 5[facility] Comment: [facility] 6Admin Note: done at pharmacy 7Admin Note: manufacture [employer] Medications aspirin 81 mg oral delayed release tablet 81 mg, 1, tablet, By Mouth, Daily, # 90 tablet, Refills 3, Tot. Refills 3, Maintenance, 04/11/20 11:28:00 EDT, Route to Pharmacy Electronically, [facility], 178, cm, 04/11/20 7:52:00 EDT, Height, [...] Status: Ordered levothyroxine 0.05 mg oral tablet See Instructions, TAKE 1 TABLET BY MOUTH EVERY DAY, # 90 tablet, 1 Refills, Maintenance, 02/22/23 19:53:00 EDT[id number], 177.8, cm, 01/26/23 11:34:00 EDT, Height, 80.8, kg, 01/26/23 11:34:00 EDT, Dry Weight Start Date: 02/22/23 Status: Ordered metoprolol 50 mg oral tablet, extended release 50 mg, 1, tablet, By Mouth, Daily at bedtime, # 90 tablet, Refills 3, Tot. Refills 3, Maintenance, 03/08/23 10:29:00 EDT, Do Not Route, Partial fill upon patient request if the prescription is for a schedule II opioid drug. Start Date: 03/08/23 Status: Ordered nitroglycerin 0.4 mg sublingual tablet 1 tablet = 0.4 mg, Sublingual, Every 5 minutes, PRN for chest pain, # 25 tablet, 3 Refills, Maintenance, 09/25/22 9:08:00 EST, Tablet, [facility]/pharmacy #[id number], 178, cm, 04/01/22 11:00:00 EDT, Height, 82, kg, 11/06/20 13:12:00 EDT, Dry Weight Start Date: 09/25/22 Status: Ordered omeprazole 20 mg oral enteric coated capsule 1 capsule = 20 mg, By Mouth, Daily, # 90 capsule, 1 Refills, Maintenance, 10/20/22 11:18:00 EST, ECCapsule, [facility]/pharmacy #[id number], Partial fill upon patient request if [...] Active Sleep apnea (central) Confirmed 01/16/08 Active Stable angina Confirmed Active Thrombocytopenia Confirmed Active Tremor Confirmed Active [...] Team Personnel Name: Salud Izaguirre RN Position: [facility] SN RN Member Role: Primary Care Nurse Name: Esperanza Newberry MD Position: [facility] Physician - Primary Care Member Role: PCP Address: Address: [address] [place] [address] [place] [address]- Name: Julia Covarrubias RN Position: [facility] AMB Nurse Member Role: Primary Care Nurse Name: Tony Romo MD Position: [facility] Oncology MD Member Role: Lifetime Consulting Physician Address: Address: [address] [place] [address] [place] [address]- [place] Name: Eden Uribe RN Position: [facility] RN Member Role: Primary Care Nurse Name: Ismael Strong MD Position: [facility] Cardiology MD Member Role: Lifetime Consulting Physician Address: Address: [address] [place] [address] [place] [address]- [place] Name: Elly Ramirez RN Position: [facility] RN Member Role: Primary Care Nurse Care Team Related Persons Name: LISSA PIERSONEN Address: home [address] [place] [address]
--- OUTSIDE RECORDS SUMMARY | 2023-12-27 08:06 | XMS_ITS | Continuity of Care Document ---
Author Organization [facility] ter Address [address] [place] [address]- Care Team Providers Care Grant Officer Name Role Phone Esperanza Newberry MD Primary Care Physician [facility] Date[facility]s): 01/26/23 - 01/26/[address] [id number] Discharge Disposition: A-D/C Home Attending Physician: Leno Min MD Admitting Physician: Leno Min MD Referring Physician: Leno Min MD Allergies, Adverse Reactions, Alerts Substance Reaction [...] toxoids (Td) 7 09/29/02 Given 1Travel Destination: [facility] [id number] Newberry [facility] 3Admin Note: josiah butler 4[facility] 5[facility] Comment: [facility] 6Admin Note: done at pharmacy 7Admin Note: manufacture [employer] labs Medications aspirin 81 mg oral delayed release tablet 81 mg, 1, tablet, By Mouth, Daily, # 90 tablet, Refills 3, Tot. Refills 3, Maintenance, 04/11/20 11:28:00 EDT, Route to Pharmacy Electronically, [facility], 178, cm, 04/11/20 7:52:00 [...] 3 Refills, Maintenance, 09/25/22 9:08:00 EST, Tablet, [facility]/pharmacy #[id number], 178, cm, 04/01/22 11:00:00 EDT, Height, 82, kg, 11/06/20 13:12:00 EDT, Dry Weight Start Date: 09/25/22 Status: Ordered omeprazole 20 mg oral enteric coated capsule 1 capsule = 20 mg, By Mouth, Daily, # 90 capsule, 1 Refills, Maintenance, 10/20/22 11:18:00 EST, ECCapsule, [facility]/pharmacy #[id number], Partial fill upon patient request if [...] oldest [Reference Range]: 1 2 3 Height 177.80 cm (01/26/23 11:34 AM) 177.80 cm (01/25/23 9:34 AM) Weight 80.8 kg (01/26/23 11:34 AM) 81.82 kg (01/25/23 9:34 AM) Oxygen Saturation [94-100 %] 97 % (01/26/23 1:00 PM) 97 % (01/26/23 12:45 PM) 100 % (01/26/23 11:34 AM) Pulse Rate [55-90 bpm] 72 bpm (01/26/23 11:34 AM) Body Mass Index [18.5-24.99 kg/m2] 25.56 kg/m2 *H* (01/26/23 11:34 AM) 25.88 kg/m2 *H* (01/25/23 9:34 AM) Blood Pressure [90-138/55-84 mm Hg] 109/58mm Hg (01/26/23 1:00 PM) 146/58mm Hg *H* (01/26/23 12:45 PM) 126/85mm Hg (01/26/23 11:34 AM) Respiratory Rate [16-30 br/min] 19 br/min (01/26/23 1:00 PM) 25 br/min (01/26/23 12:45 PM) 16 br/min (01/26/23 11:34 AM) Temperature [96.8-100.4 DegF] 97.1 DegF (01/26/23 12:45 PM) 97.8 DegF (01/26/23 11:34 AM) Mode of Delivery (Oxygen) Room air (01/26/23 1:00 PM) Room air (01/26/23 12:45 PM) Room air (01/26/23 11:34 AM) Blood pressure sites Arm, left (01/26/23 12:45 PM) Arm, left (01/26/23 11:34 AM) Temperature Route Temporal (01/26/23 12:45 PM) Temporal (01/26/23 11:34 AM) Dry Weight 80.8 kg (01/26/23 11:34 AM) 81.82 kg (01/25/23 9:34 AM) Weight Obtained Via Standing scale (01/26/23 11:34 AM) Patient/family stated (01/25/23 9:34 AM) Dry Weight Obtained Via Standing scale (01/26/23 11:34 AM) Patient/family stated (01/25/23 9:34 AM) Social History Social History Type Response Smoking Status Former smoker; Start ed at age: 12; Stopped at age: 56; entered on: 01/03/15 Sex Note * Evelina Cortez RN: PERFORM Event Display: Discharge/Transfer Note Hospital Authored Date: [id number] Nursing Discharge Note Entered On: 01/26/2023 13:49 EDT Performed On: 01/26/2023 13:48 EDT by Evelina Cortez RN Nursing Discharge Note 2 Discharge Time : 01/26/2023 13:46 EDT Discharge Level of Care at Discharge : Home/Fpc/Foster Care Patient Left Unit Via : Wheelchair Patient Accompanied Off Unit with : Responsible adult DC Instructions Provided & Signed by Pt : Yes Patient Understands D/C Instructions : Yes Patient Instructions Discharge Signed : Yes Did Pt have Specialty Bed or Wound Vac : No Evelina Cortez RN - 01/26/2023 13:48 EDT * Evelina Cortez RN: PERFORM Event Display: Patient Education/Instruction Authored Date: [id number] Surgery Adult Discharge Instructions [address] [address] Name: TOMAS PIERSON : 1940?? Visit: 01/26/2023 10:24?? Current Date: 01/26/2023 13:18 ?? Account: [id number]?? Surgery Discharge Instructions We would like to thank you for allowing us to assist you with your healthcare needs. The following includes patient education materials and information regarding your injury/illness. Our entire staffstrives to provide an excellent experience for our patients and their families. PLEASE ENSURE YOU FOLLOW-UP PER THE INSTRUCTIONS BELOW! ?? YOUR OPINION IS IMPORTANT TO US! Please complete the survey you may receive by mail or email. Your feedback will be used to make improvements to the healthcare experiences of our patients and their families. Surveys are administered by [employer] ?? If further treatment with your primary care physician or another doctor is recommended, it is important for you to keep the appointment. Call your primary care physician or return to the Emergency Department immediately if your condition worsens, fails to improve, or new symptoms develop. If you need to find a doctor, you can call [facility] [employer] for a referral at [phone] or toll free at [phone] ([phone]) or log in to [email or web address].. ?? You can view and manage your care through the patient portal or by using a health care wilfred of your choosing. [employer] is a website that allows you to securely view your medical information including your hospital discharge summary, office visit summaries, medications and follow-up visits. You can also request appointments, renew medications, and request access to your medical information using a health care wilfred of your choosing, or just ask a question. You are entitled to know the individuals who participated in your treatment. This information is available within your medical record and will be provided upon your request. You can enroll at [email or web address] or register d uring your next office visit. You have been discharged from [facility], Patient Care Unit: [facility]??. If you have any questions regarding these instructions after you leave, please call us and we will be happy to assist you. [facility] Your Care Team Attending Physician eLno Min MD?? Discharging Providers Leno Min MD Reason for Admission ECTROPION PUNCTAL STENOSIS DS CS Primary Care Provider Esperanza Newberry MD? Advance Directive Health Care Proxy on File Yes - Health Care Proxy What to do next Instructions From Your Doctor ?? Orders?? Daystay Protocol, ??01/26/23 12:53:00 EDT?? Instructions from your Care Team FOLLOW POSTOP INSTRUCTIONS Scheduled Follow-Up Appointments Wednesday 10:00 AM EDT ?? With: Esperanza Newberry MD Where: [facility] [address] [place] [address]- Status: Pending You Need to Schedule the Following Appointments Follow Up with??Leno Min When:??Within 1 to 2 weeks Where: [address] [place] [address]- Business (1) Follow Up with??Esperanza Newberry When:??In 0 days Where: [address] [place] [address] [place] [address]- Business (1) Discharge Medications TOMAS PIERSON :1940 Visit Date:01/26/2023 Medications: Please continue your medications until treatment is completed or stopped by your provider. You may resume your daily prescription medications. Discuss any questions related to medications with your provider. What How Much When Instructions Next Dose Unchanged Acetaminophen (Tylenol Caplet Extra Strength) 1,000 Milligram Oral Every 8 hours as needed for Pain , Moderate Unchanged Aspirin (aspirin 81 mg oral delayed release tablet) 1 tab(s) Oral Daily Unchanged Atorvastatin (atorvastatin 40 mg oral tablet) 0.5 tab(s) Oral Daily at Bedtime Unchanged Cholecalciferol (Vitamin D3 1000 intl units oral tablet) 25 Microgram Oral Unchanged Levothyroxine (levothyroxine 0.05 mg oral tablet) 1 tab(s) Oral Daily Unchanged Metoprolol (metoprolol 25 mg oral tablet) 1 tab(s) Oral Twice a day Unchanged Nitroglycerin (nitroglycerin 0.4 mg sublingual tablet) 1 tab(s) Sublingual Every 5 minutes as needed for for chest pain Unchanged Omeprazole (omeprazole 20 mg oral enteric coated capsule) 1 capsule Oral Daily Unchanged sacubitril-valsartan (Entresto 49 mg-51 mg oral tablet) 1 tab(s) Oral Twice a day Allergies (NKA means No Known Allergies) Percocet??(rash) Percodan??(rash) Tylox??(rash) statins??(Myalgia) Education Materials Below is the list of Educational Leaflet Providered with your Discharge Instructions. Surgery Medical Daystay Surgical Overnight Discharge Instructions?? Valuables and Belongings I fully understand and agree that [facility] accepts no responsibility for all my personal property including clothing, toilet articles, radios, jewelry, dentures, hearing aids, rings, money, or any other property that is in my possession or is brought to me after admission. I understand certain valuables may be placed in a hospital safe for a short period of time. I understand that the hospital is not liable for loss or damage due to accident, fire, or other natural occurrence while said property is in the safe. I accept full responsibility for any personal property that I keep with me, and will not hold the hospital responsible in case of loss or disappearance. I acknowledge that i have been encouraged to send valuables and belongings home. ?? Review of Valuable and Belonging List: With patient, With family Date for Pt to Sign Valuables/Belongings: 01/26/23 11:34:00 ?? Valuables & Belongings ?? Clothes Electronic devices Jewelry Monetary Items Personal devices Miscellaneous Medications (Valuables) Valuables at Bedside Pants, Shirt, Shoes, Undergarments ? Dentures, upper, Hearing aid, left, Hearing aid, right ? Valuables Sent Home ? Valuables Sent to Security ? Other Discharge Information ? Pulmonary Rehab Status?? Pulmonary Rehab Discharge Status?? Respiratory Rate: 19 br/min ? Common Emergency Awareness Tips IS IT A STROKE? Act FAST and Check for these signs: FACE Does the face look uneven? ARM Does one arm drift down? SPEECH Does their speech sound strange? TIME Call at any sign of stroke ?? Heart Attack Signs Chest discomfort: Most heart attacks involve discomfort in the center of the chest and lasts more than a few minutes, or goes away and comes back. It can feel like uncomfortable pressure, squeezing, fullness or pain. Discomfort in upper body: Symptoms can include pain or discomfort in one or both arms, back, neck, jaw or stomach. Shortness of breath: With or without discomfort. Other signs: Breaking out in a cold sweat, nausea, or lightheaded. Remember, MINUTES DO MATTER. If you experience any of these heart attack warning signs, call to get immediate medical attention! ?? Smoking can increase your chances of developing chronic health problems and can cause harmful effects to other family members in your house. If you smoke, you are strongly encouraged to quit. Please call [facility] [employer] at [phone] or [phone] ([phone]) or log in to [email or web address] for referrals to smoking cessation programs. ?? The National Suicide Prevention Hotline is available 08/03 if you or someone you know needs to find a reason to keep living. By calling 8-961-112-Literably (8455) you'll be connected to a skilled, trained counselor at a crisis center in your area. SURGERY DISCHARGE INSTRUCTIONS SIGNATURE PAGE TOMAS PIERSON Location:[facility] Registration Date and Time:01/26/2023 10:24 EDT Primary Care Physician: Rohith ASHER, Esperanza Nettles, Attending Physician: Pako ASHER, Leno Alexander, I TOMAS PIERSON, have received the above patient education materials/instructions and have verbalized understanding. If ambulance or transport services are being used I further acknowledge being given a choice of service. ?? If you need to contact me, please call me at this number: . Patient/Chief Diversity Officer Name: Patient/Chief Diversity Officer Signature: Relationship to Patient: Witness Name/Signature: Date: * Evelina Cortez RN: PERFORM, SIGN, VERIFY Event Display: Patient Education Handout Authored Date: [id number] * Evelina Cortez RN: PERFORM Event Display: Patient Education Leaflets Authored Date: [id number] Surgery Medical Daystay Surgical Overnight Discharge Instructions ?? 295 Medical Daystay/Surgical Overnight Discharge Instructions ? Since your coordination and judgment may be altered by medication and/or anesthesia, a responsible adult must drive you home from the hospital. ? If you have received medication for pain or sedation while under our care, you should not drive, operate machinery, drink alcohol, or sign any legal documents for 24 hours.?? You should have someone with you at home tonight. ? Remain at home the day of discharge.?? You may be up and about unless otherwise instructed by your physician. ? You may resume your daily prescription medication schedule.?? Any depressant medication should be avoided for 24 hours unless otherwise instructed by your surgeon or anesthesiologist. ? Call your physician for a follow-up appointment.? If you experience unusual or severe pain not relied by your pain medication, excessive bleedingor drainage, persistent nausea and vomiting, excessive swelling or redness, foul odor from incisionsite or fever over 100.6F, you need to call your physician. ? A follow-up phone call by a nurse will be made the day after your procedure.?? If you have stayed with us over night, you will not be receiving a follow-up phone call. ? Nausea and vomiting are a common side effect of prescription pain medication.?? We recommend that pills are not taken on an empty stomach.?? While taking any prescription pain medication you should not drive or drink alcohol. ? Patient Care team information Care Team Personnel Name: Salud Izaguirre RN Position: [facility] SN RN Member Role: Primary Care Nurse Name: Esperanza Newberry MD Position: [facility] Physician - Primary Care Member Role: PCP Address: Address: [facility] [place] [address]- [place] Name: Julia Covarrubias RN Position: [facility] AMB Nurse Member Role: Primary Care Nurse Name: Tony Romo MD Position: [facility] Oncology MD Member Role: Lifetime Consulting Physician Address: Address: [address] [place] [address] [place] [address]- [place] Name: Eden Uribe RN Position: [facility] RN Member Role: Primary Care Nurse Name: Ligia ASHER, Ismael Steele Position: [facility] Cardiology MD Member Role: Lifetime Consulting Physician Address: Address: [address] [place] [address] [place] [address]- Name: Elly Ramirez RN Position: [facility] RN Member Role: Primary Care Nurse Care Team Related Persons Name: VALERY PIERSON Address: [address] [address]
--- OUTSIDE RECORDS SUMMARY | 2023-12-27 08:06 | XMS_ITS | Continuity of Care Document ---
Author Organization [facility] Address [address] [place] [address]- Care Team Providers Care Bi Tester Name Role Phone Esperanza Newberry MD Primary Care Physician Encounter [facility] Date(s): 07/25/19 - 11/22/19 [facility] [address] [place] [address]- [facility] Attending Physician: Valeria ASHER, Lurdes Morales Admitting Physician: Valeria ASHER, Lurdes Morales Referring Physician: Esperanza Newberry MD Allergies, Adverse Reactions, [...] toxoids (Td) 7 09/29/02 Given 1Travel Destination: [facility] [id number] Newberry [facility] 3Admin Note: josiah butler 4[facility] 5[facility]: [facility] 6Admin Note: done at pharmacy 7Admin Note: manufacture [email or web address] labs Medications aspirin 81 mg oral enteric [...] marginal branch of the circumflex; Dr. Strong 3DrNadai Hendrickson 4L cheek Dr. Galvan 5s/p radical prostatectomy Dr. Pederson Social History Social History Type Response Smoking Status Former smoker; Start ed at age: 12; Stopped at age: 56; entered on: 01/03/15 Sex
[2023-12-27 08:39] LABS: MANUAL DIFF FLAG NO
[2023-12-27 08:41] LABS: Basophils Percent Auto 0.5 % (0-2); Eosinophils Absolute Auto 0.1 X10*3/uL (0.0-0.4); Eosinophils Percent Auto 0.8 % (0-4); Hematocrit 36.8 % (42.0-52.0); Hemoglobin 12.3 g/dl (14.0-18.0); Imm Gran Abs Auto 0.02 X10*3/uL (0.00-0.03); Imm Gran Pct Auto 0.3 % (0.0-0.4); Lymphocytes Absolute Auto 0.5 X10*3/uL (1.2-4.9); Lymphocytes Percent Auto 5.8 % (20-40); Mean Corpuscular HGB Conc 33.4 g/dl (31.0-36.0); Mean Corpuscular Hemoglobin 30.3 pg (27.0-33.0); Mean Corpuscular Volume 90.6 fL (80.0-98.0); Monocytes Absolute Auto 1.1 X10*3/uL (0.1-1.2); Neutrophils Absolute Auto 6.2 x10*3/uL (2.0-8.3); Neutrophils Percent Auto 78.6 % (45-73); Platelet Count 110 X10*3/uL (160-400); Red Blood Count 4.06 X10*6/uL (4.60-5.80); Red Cell Distribution Width 13.6 % (11.0-16.0); White Blood Count 7.9 X10*3/uL (4.8-10.8)
[2023-12-27 08:53] LABS: Alanine Aminotransferase 25 U/L (0-40); Albumin Level 3.6 g/dL (3.5-5.0); Alkaline Phosphatase 66 U/L (39-117); Anion Gap 14 (12-20); Aspartate Amino Transferase 25 U/L (5-37); Bilirubin Total 1.7 mg/dL (0.0-1.0); Blood Urea Nitrogen 17 mg/dL (9-16); Calcium 9.2 mg/dL (8.4-10.2); Carbon Dioxide 22 mmol/L (22-29); Chloride 107 mmol/L (96-108); Creatinine Clr Calc Pharmacy 56.5; Estimated Glomerular Filt Rate > 60; Glucose Random 121 mg/dL (60-115); Potassium 3.6 mmol/L (3.3-5.1); Sodium 139 mmol/L (135-145); Total Protein 6.4 g/dL (6.5-8.0)
[2023-12-27 09:23] LABS: Influenza A PCR NEGATIVE (Negative); Influenza B PCR NEGATIVE (Negative); Resp Syncy Virus RNA Qual PCR NEGATIVE (Negative); SARS COV2 PCR INHOUSE NEGATIVE (Negative)
[2023-12-27 09:44] VITALS: BP 122/56; PULSE 71; RESP 13; O2SAT 97
[2023-12-27 10:39] LABS: Troponin-I High Sensitivity 13.5 ng/L (<3.5-35.0)
[2023-12-27 10:44] VITALS: BP 90/72; PULSE 69; RESP 12; O2SAT 95
[2023-12-27 12:12] VITALS: O2SAT 94
[2023-12-27 12:42] LABS: Troponin-I High Sensitivity 13.1 ng/L (<3.5-35.0)
[2023-12-27 13:11] LABS: Appearance Urine Clear; Color Urine Dark Yellow; Glucose Urine UA Negative (Negative); Leukocyte Esterase Urine Trace (Negative); Nitrite Urine Negative (Negative); PH 5.5 (5.0-9.0); Specific Gravity - Urine >= 1.030 (1.005-1.025); UMIC TRIGGER UACC YES; Urine Blood Negative (Negative); Urine Ketones Trace mg/dL (Negative); Urine Protein 30 (1+) mg/dL (Neg-Trace)
[2023-12-27 13:14] LABS: Bacteria Urine None Seen (None Seen); Hyaline Casts Urine 0-2 /LPF (0-2); RBC Urine 0-2 /HPF (0-2); Squamous Epithelial Cell Urine 0-2 /HPF (0-2); WBC Urine 0-5 /HPF (0-5)
[2023-12-27] MEDS: guaiFENesin 200 MG/10 ML 10 ML LIQUID PO (13:38)
[2023-12-27 14:21] VITALS: BP 114/54; PULSE 88; RESP 18; TEMP 36.8; O2SAT 100
== END 2023-12-27 14:24 | disposition home or self-care (01) ==
PROVIDERS: Emergency Provider Emergency Medicine; PCP Internal Medicine
DX: J40 Bronchitis, not specified as acute or chronic (principal); R05.9 Cough, unspecified; R94.31 Abnormal electrocardiogram [ECG] [EKG]; Z79.899 Other long term (current) drug therapy; Z03.818 Encounter for observation for suspected exposure to other biological agents ruled out
CPT/HCPCS: 0241U; 36415; 71046; 80053; 81001; 84484; 85025; 93005; 99283; 99285

== ENCOUNTER → 2023-12-27 07:42 | Outpatient (BNV) | payer MEDICARE, SELFPAY | PROVIDERS: Emergency Provider Emergency Medicine; PCP Internal Medicine; Visit Provider Internal Medicine Cardiovascular Disease | DX: I49.3 Ventricular premature depolarization (principal) | CPT/HCPCS: 93010 ==

== ENCOUNTER 2025-02-09 09:26 | Outpatient (AMB) | payer MEDICARE, SELFPAY ==
[2025-02-09 09:28] VITALS: BP 118/60; PULSE 62; TEMP 36.6; O2SAT 97; BMI 25.1
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
--- OUTSIDE RECORDS SUMMARY | 2025-02-09 09:51 | XMS_ITS | Data Portability ---
Author Organization [place] - [facility], Allergy Address [address] [address] Care Team Providers Care Corrosion Technician Name Role Phone PRESTON PALOMARES Primary Care Provider [phone] Assessment Encounter Date Assessment Date Assessment LastModified by Organization Details LastModified Time 03/02/2024 03/02/2024 Patient with history of multiple skin cancers and sensorineural hearing loss. He has hearing aids and has been wearing an amplifier for the right ear canal while his hearing aid is being repaired. During his consultation with his hearing provider irritation was noted in the right ear canal. The patient has had some discomfort. I did not see any discrete lesions suspicious for cancer. There is a small area of just irritation likely from the mold. I have suggested he leave his device out of that right ear and use 3 drops of distilled vinegar twice weekly. His Judy will observe things and if any concerns contact me. He will follow-up with radiation regarding his positive margin post Mohs surgery [email or web address] Not available 03/02/2024 11:41:01 Plan of Treatment Reminders Order Date Submit Date Provider Last Modified By Organization Details Last Modified Time Details Appointments None record ed. Lab None record ed. Referral None record ed. Procedures None record ed. Surgeries None record ed. Imaging None record ed. Medication Orders None record ed. Patient TargetsNo targets recorded. Patient InstructionsNo instructions recorded. Reason for Referral None Reported. Results Created Date Observation Date Name Description Value Unit Range Abnormal Flag Note LastModifiedBy Organization Detail LastModifiedTime 04/04/2012/16/2021 imagi ng/di agnos tic resul t No observ ation record ed. [email or web address] Not Available 20:01:55 04/04/2006 0112/16/2021 audio gram No observ ation record ed. [email or web address] Not Available 20:02:23 04/04/20 24 01/11/2020 audio gram No observ ation record ed. [email or web address] Not Available 20:02:24 Result Notes None recorded. Problems Name Problem SNOMED Code Status Onset Date Resolution Date Notes Provider Name and Address Organization Details Recorded Time Otalgia of right ear 9364610115 Active 2019 Otalgia, right ear; Note: Date Diagnosed : 03/13/2020 11:31 AM (H92.01) Not Available [facility] 4 02:37:52 Sensorine ural hearing loss of bilateral ears 244668256 Active 2016 Sensorine ural hearing loss, bilateral ; Note: Date Diagnosed : 02/19/2017 3:12 PM (H90.3) Not Available [facility] 4 02:38:03 Lesion of right external ear canal 58034087328 51372 Active 2023 CARLA CHERY MD [address] [place] [address], [facility] [place], [phone] , [facility] 4 11:39:47 Problem Notes None recorded. Medical Equipment None Reported. Allergies Allergen ID Allergen Name Allergen Category Reaction Reaction Severity Criticality Documentation Date Start Date Code Code System Note Provider Name and Address Organization Details Recorded Time 02758 Ceftin medicatio n other Not available Not available 12/28/2023 58661 6 RxNorm React ion: unkno wn, unspe cifie d;; Not Available [facility] 4 00:55:15 68680 Percodan medicatio n other Not available Not available 12/28/2023 27902 RxNorm React ion: unkno wn, unspe cifie d;; Not Available [facility] 4 00:55:17 75303 acetamino phen / oxycodone medicatio n other Not available Not available 12/28/2023 86455 3 RxNorm React ion: unkno wn, unspe cifie d;; Not Available [facility] 4 00:55:23 36754 acetamino phen / oxycodone medicatio n other Not available Not available 12/28/2023 86455 3 RxNorm React ion: unkno wn, unssheila herzog d;; Not Available [facility] 4 00:55:24 Medications Name Sig Start Date Stop Date Status Note LastModified by Organization Details LastModified Time atorvasta tin 40 mg tablet 2016 active Medicati on ID: [id number] D uration Value: 30 Brand Name: atorvast atin Sen d Method: E-Prescr ibed Sub s Allowed: subs OK Medic ationGen ericName : atorvast atin Not Available Not Available Not Available prednison e 10 mg tablet 03/13 completed Medicati on ID: [id number] P avis d By Name: Anneliese Price nd Name: predniso ne Send Method: E-Prescr ibed Sub s Allowed: subs OK Speci al Instruct ion: As directed Medicat ionGener icName: predniso ne Not Available Not Available Not Available atorvasta tin 20 mg tablet TAKE 1 TABLET BY MOUTH EVERY DAY FOR 90 DAYS active Not Available Not Available No t Available metoprolo l succinate ER 50 mg tablet,ex tended release 24 hr TAKE 1 TABLET BY MOUTH EVERY DAY FOR 90 DAYS active Not Available Not Available No t Available phenazopy ridine 200 mg tablet 1 TABLET (200 MG) ORALLY 3 TIMES PER DAY NEEDED FOR 2 DAYS AFTER MEALS active Not Available Not Available No t Available sulfameth oxazole 800 mg-trimet hoprim 160 mg tablet TAKE 1 TABLET BY MOUTH EVERY 12 HOURS FOR 10 DAYS active Not Available Not Available No t Available aspirin 81 mg tablet,de layed release 2016 active Medicati on ID: [id number] B rand Name: aspirin Send Method: E-Prescr ibed Sub s Allowed: subs OK Medic ationGen ericName : aspirin Not Available Not Available Not Available levothyro xine 25 mcg tablet 2016 active Medicati on ID: [id number] D uration Value: 90 Brand Name: levothyr oxine Se nd Method: E-Prescr ibed Sub s Allowed: subs OK Medic ationGen ericName : levothyr oxine Not Available Not Available Not Available benzonata te 100 mg capsule TAKE 1 CAPSULE BY MOUTH 3 TIMES A DAY NEEDED FOR COUGH active Not Available Not Available No t Available doxycycli ne monohydra te 100 mg capsule TAKE 1 CAPSULE BY MOUTH TWICE A DAY active Not Available Not Available No t Available levothyro xine 50 mcg tablet TAKE 1 TABLET BY MOUTH EVERY DAY active Not Available Not Available No t Available pantopraz ole 40 mg tablet,de layed release 03/13 completed Medicati on ID: [id number] D uration Value: 30 Reason: () Brand Name: pantopra zole Sen d Method: E-Prescr ibed Sub s Allowed: subs OK Medic ationGen ericName : pantopra zole Not Available Not Available Not Available clotrimaz ole-betam ethasone 1 %-0.05 % topical cream Apply 1 a small amount to affected area twice a day 2019 active Medicati on ID: [id number] D uration Value: 14 Prescri bed By Name: KEAGAN Rutherford nd Name: clotrilayla zole-bet ammikeaso ne Send Method: E-Prescr ibed Sub s Allowed: subs OK Speci al Instruct ion: apply with fingerti p to right external canal meatus M edicatio nGeneric Name: clotrima zole-bet amethaso ne Not Available Not Available Not Available losartan 25 mg tablet active Medicati on ID: [id number] B rand Name: losartan Send Method: E-Prescr ibed Sub s Allowed: subs OK Medic ataureaGen ericName : losartan Not Available Not Available Not Available omeprazol e 20 mg capsule,d elayed release Take 1 capsule by mouth every morning one hour before meals active Medicati on ID: [id number] D uration Value: 30 Brand Name: omeprazo le Send Method: E-Prescr ibed Sub s Allowed: subs OK Speci al Instruct ion: 30-60 minutes prior to any oral intake M edicatio nGeneric Name: omeprazo le Not Available Not Available Not Available metoprolo l succinate ER 25 mg tablet,ex tended release 24 hr 2016 active Medicati on ID: [id number] D uration Value: 90 Brand Name: metoprol ol succinat e Send Method: E-Prescr ibed Sub s Allowed: subs OK Medic ationGen ericName : metoprol ol succinat e Not Available Not Available Not Available vitamin B12 1,000 mcg-folic acid 400 mcg sublingua nichole morazenge 2016 active Medicati on ID: [id number] B rand Name: vitamin U14-eedp c acid Sen d Method: E-Prescr ibed Sub s Allowed: subs OK Medic ationGen ericName : vitamin Q42-qbdw c acid Not Available Not Available Not Available Paxlovid 300 mg (150 mg x 2)-100 mg tablets in a dose pack TAKE 3 TABLETS TOGETHER BY MOUTH TWICE A DAY FOR 5 DAYS active Not Available Not Available No t Available Vitals Date Recorded Body height Body mass index (BMI) Body weight Provider Name and Address Organization Details Last Updated DateTime 03/02/2024 177.8 cm 24.1 kg/m2 79931.52 g Richard Martinez [place] - [facility] 03/02/2024 11:04:13 Social History None recorded. Functional Status None recorded. Mental Status None recorded. Family History Nothing Reported. Medical History Condition Response Hyperlipidemia Y Cancer Y High Cholesterol Y Hypertension Y Past Encounters Encounter ID Performer Location Encounter Start Date Encounter Closed Date Diagnosis/Indication Diagnosis SNOMED-CT Code Diagnosis ICD10 Code Diagnosis Note [id number] CARLA CHERY MD [facility] [address] [address] 03/02/2024 10:55:20 03/02/2024 11:43:04 History of malignant neoplasm of skin 344134577 Z85.828 Lesion of right external ear canal 4841107339 860458 H61.91 Health Concerns Section Related Observation LastModified by Organization Detai ls LastModified Time None Recorded Concern Status LastModified by Organization Details LastModified Time None Recorded Advance Directives Directive None Recorded Payers Insurance Date Sequence Insurance Name Policy Number Policy Tom Covered Member ID Tom Member ID Guarantor Name 03/02/2024 2 [employer] BLUE CROSS (MEDICARE SUPPLEMENT) [id number] Thomas Zahira Eaton [id number] Thomas Rodriges Eaton 03/02/2024 1 MEDICARE B-[place]: [facility] [employer] Thomas Rodriges Mike [id number] Thomas Mckeon Notes Date Note Type Note Provider Name and Address Organization Details Recorded Time 03/02/2024 text/html Hx of HL.Seen at [facility] and noted irritation right ear canal from hearing aid Recurrent SCCA right temporal region. Moh's surgery yesterday right temporal region with persistent disease around peripherla nerve. Awaiting XRT consult Seen with Judy Mckeon, RN CARLA JENKINS MD [address] [place] [address], [phone], [facility] - [facility] 03/02/2024 11:42:05
== END 2025-02-09 09:58 | disposition home or self-care (01) ==
PROVIDERS: PCP Internal Medicine; Visit Provider Internal Medicine
DX: S81.852A Open bite, left lower leg, initial encounter (principal); W54.0XXA Bitten by dog, initial encounter; I48.20 Chronic atrial fibrillation, unspecified; L03.116 Cellulitis of left lower limb; Z79.01 Long term (current) use of anticoagulants

== ENCOUNTER → 2025-02-09 09:26 | Outpatient (BNVA) | payer MEDICARE, SELFPAY | PROVIDERS: PCP Internal Medicine; Visit Provider Internal Medicine | DX: S81.852A Open bite, left lower leg, initial encounter (principal); W54.0XXA Bitten by dog, initial encounter; L03.116 Cellulitis of left lower limb; I48.20 Chronic atrial fibrillation, unspecified; Z79.01 Long term (current) use of anticoagulants | CPT/HCPCS: 99212 ==

== ENCOUNTER 2025-04-03 15:18 | Outpatient (AMB) | payer MEDICARE, SELFPAY ==
[2025-04-03 15:27] VITALS: BP 114/64; PULSE 98; TEMP 36.4; O2SAT 97; BMI 25.0
--- NOTE | 2025-04-03 15:27 | MHC.OFFWIV ---
Intake Vital Signs 04/03/25 15:27 Height 5 ft 10 in Weight 174 lb 6 oz BMI 25.0 BP 114/64 Blood Pressure Location Lt brachial Position Sitting Pulse 98 Pulse Source Pulse Oximeter Temp 97.5 F Temp Source Axillary Pulse Oximetry (%) 97 Oxygen Delivery Method Room Air Intake Visit Reasons: EP UTI? Patient Tobacco Use Status: Former Tobacco user Senior Reliability Engineer Required: No Allergies oxycodone (From PERCODAN) Allergy (Unknown, Verified 04/03/25 15:42) HIVES acetaminophen (From Percocet) Allergy (Verified 04/03/25 15:42) Hives Do you need a note to return to daycare/school/sports/work: No HPI HPI Comments History of Present Illness Details History - The patient is an 85-year-old male presenting with his with a suspected urinary tract infection for a few days - Reports increased frequency of urination, pain with urination - Denies blood in urine. - History of recurrent urinary tract infections, previously linked to Farxiga use, now discontinued. - History of congestive heart failure and past hospitalization for asymptomatic urinary tract infection. Physical Exam General: Cooperative, healthy appearing, comfortable, no acute distress and well developed Orientation: Patient oriented x3 Limitations: No limitations Head: Normal to inspection Ears: Hard of hearing, wearing hearing aids Face and sinus: Normal facial exam Neck: Normal visual inspection and Yes full ROM Respiratory: Normal respiratory effort and able to speak in complete sentences. Skin: No rashes or lesions noted Neuro: Patient oriented x3 [facility] Medical History Atherosclerotic cardiovascular disease Chest pain Elevated troponin Abrasion Fall Prostate cancer ICD (implantable cardioverter-defibrillator) in place Left bundle branch block Ischemic cardiomyopathy Hypothyroidism SVT (supraventricular tachycardia) CHF (congestive heart failure) Pacemaker Coronary artery disease Afib Surgical History History of bowel resection Hx of appendectomy Stented coronary artery Family History Mother Diabetes Social History Alcohol intake: current Alcohol intake frequency: holidays/special occasions only Alcohol type: hard liquor Patient Tobacco Use Status: Former Tobacco user service: No Current occupational status: retired Review of Systems Const All systems reviewed & are unremarkable except as noted in HPI and below Physical Exam Vital Signs: Last Vital Signs Temp 97.5 F 04/03/25 15:27 Pulse 98 04/03/25 15:27 BP 114/64 04/03/25 15:27 Pulse Ox 97 04/03/25 15:27 Oxygen Delivery Method Room Air 04/03/25 15:27 BMI result Body Mass Index 25.0 Assessment & Plan Assessment & Plan (1) UTI (urinary tract infection): Code(s): N39.0 - Urinary tract infection, site not specified Qualifiers: Urinary tract infection type: acute cystitis Hematuria presence: with hematuria Qualified Code(s): N30.01 - Acute cystitis with hematuria Plan: Plan Patient was informed and verbally consented to the use of an ambient scribe for clinic note documentation during this visit. Urinary Tract Infection (Uti) - UA with + leuks, neg nitrites, + blood. Will treat based on symptoms. - Prescribed cefalosporin, advising to avoid omeprazole during treatment to enhance absorption. - Urine culture ordered to confirm the infection and ensure appropriate antibiotic coverage. - Advised to monitor for worsening symptoms or signs of a kidney stone, such as increased pain or hematuria. Orders: Orders Urine Culture Today N39.0 - Urinary tract infection, site not specified Medications: New cefuroxime axetil 500 mg PO Q12H 10 tabs 0RF Coding Level of Care Code New Pt Level 3 (27856) Diagnoses Acute cystitis with hematuria N30.01 Urinary tract infection type: acute cystitis Hematuria presence: with hematuria
--- OUTSIDE RECORDS SUMMARY | 2025-04-03 16:34 | XMS_ITS | Encounter Summary ---
Author Organization [facility] Address [address] [facility] [address] [place] [address] Phone Care Team Providers Care Steel Rigger Name Role Phone Esperanza Newberry MD Primary Care Provider [phone] Encounter Details Date Type Department Care Team (Latest Contact Info) Description 11/21/2020 Ancillary Orders Non-Invasive Cardiology [address] [place] [address] Alexis Dunlap MD [address] [place] [id number] [email or web address] Ischemic cardiomyopathy Social History Tobacco Use Types Packs/Day Years Used Date Smoking Tobacco: Former Cigarettes Q uit: 01/12/1990 Smokeless Tobacco: Never Alcohol Use Standard Drinks/Week Comments Yes 0 (1 standard drink = 0.6 oz pur e alcohol) Sex and Gender Information Value Date Recorded Sex Assigned at Not on file Legal Sex Male 10:38 PM EDT Gender Identity Not on file Sexual Orientation Not on file documented as of this encounter Plan of Treatment Pending Results Name Type Priority Associated Diagnoses Date /Time EP Device Check / Follow Up Cardiac Monitors Routine Ischemic cardiomyopathy 11/21/2020 9:37 AM EDT Scheduled Orders Name Type Priority Associated Diagnoses Orde r Schedule EP Device Check / Follow Up Cardiac Monitors Routine Ischemic cardiomyopathy Expected: 11/21/2020, Expires: 11/21/2021 documented as of this encounter Visit Diagnoses Diagnosis Ischemic cardiomyopathy Other specified forms of chronic ischemic heart disease documented in this encounter Care Teams Steel Rigger Relationship Specialty Start Date End Date Esperanza Newberry MD [address] [place] [id number] PCP - General 06/03/17 documented as of this encounter Additional Source Comments The information contained in this document represents components of the legal health record. It is not the complete legal health record.[facility]
== END 2025-04-03 16:41 | disposition home or self-care (01) ==
PROVIDERS: PCP Internal Medicine; Visit Provider Physician Assistant
DX: N30.01 Acute cystitis with hematuria (principal); Z13.9 Encounter for screening, unspecified

== ENCOUNTER 2025-04-03 15:18 | Outpatient (REF) | payer MEDICARE, SELFPAY | END 2025-04-03 15:19 | disposition home or self-care (01) | LOC: HO.LAB 15:18 | PROVIDERS: PCP Internal Medicine; Visit Provider Physician Assistant | DX: N30.01 Acute cystitis with hematuria (principal) | CPT/HCPCS: 81003; 87086; 87088; 87186; 99202 ==